=== PATIENT | male | born 1945 | race Caucasian/White ===

== ENCOUNTER → 2018-09-02 10:29 | Outpatient (CLI) | payer MEDICARE, OTHER, SELFPAY ==
[2018-08-16 13:07] VITALS: BMI 30.8
--- NOTE | 2018-09-02 10:33 | STEWCON_ITS ---
Reason For Study: CAD Stress Results Protocol: Eliazar Protocol Maximum Predicted HR: 149 bpm Target HR: 127 bpm % Maximum Predicted HR: 84 % Heart Stage Duration Rate BP Comment (mm:ss) (bpm) Baseline 61 122/80No Chest Pain; Diluted Definity 3 ML Given Eliazar Protocol Stage I 3:00 106 140/82No Chest Pain; Mild Dyspnea; Leg Pain Eliazar Protocol Stage No Chest Pain; Mild to Moderate Dyspnea; Leg Pain; II 2:34 125 160/74Fatigue Recovery 78 118/80No Chest Pain Stress Duration: 5:34 mm:ss Maximum Stress HR: 125 bpm METS: 7 Baseline Echocardiogram Findings The estimated ejection fraction is 65 %. Stress Echo Wall motion Data Resting WM Intermediate WM Stress WM Wall Motion Stress Mid-Anterior : Hypokinetic. Mid-Posterior: Mildly hypokinetic. EKG Data Normal intervals are noted. The baseline ECG displays normal sinus rhythm. The patient exercised according to the regular Eliazar protocol for a total duration of 5:34. The maximum heart rate attained was 126 beats per minute. This was 84% of maximum predicted heart rate. The patient exercised into stage 2 of the Eliazar protocol. The stress ECG displays diffuse abnormal ST segments. No clinical angina was noted. Interpretation Summary The estimated ejection fraction is 65 %. Abnormal, adequate, treadmill echocardiogram. Positive for ischemia by EKG and echocardiographic criteria. No anginal symptoms noted. Rare PVC noted. Appropriate blood pressure response to exercise. Average exercise capacity for age. Patient appeared to develop 1 mm of inferior and lateral ST segment depression at peak exercise which returned to baseline by 1 minute 50 seconds into recovery. Patient also appeared to develop mid anterior and mid inferior hypokinesis as evidenced in 2 views. Echo interpretation somewhat problematic due to poor echo windows requiring Definity agent. Final LVEF of 65%. Test terminated due to fatigue and dyspnea on exertion. The study was technically difficult. Contrast injection was performed. Ordering Physician: Adam Kim Referring Physician: Mele Salas Performed By: Shaila Deleon, TREVIN, RVT
[2018-09-02 12:37] LABS: AST(SGOT) 16 U/L (15-37); Alanine Aminotransfer ALT/SGPT 26 U/L (16-61); Albumin, Serum 4.1 g/dL (3.2-5.0); Alkaline Phosphatase 54 U/L (45-117); Bilirubin, Direct 0.11 mg/dL (0.00-0.30); Cholesterol 160 mg/dL (200); Globulin 3.4 g/dL (2.2-4.2); High Density Lipoprotein 37 mg/dL; Protein, Total 7.5 g/dL (6.4-8.2); Triglycerides 178 mg/dL; Very Low Density Lipoprotein 36 mg/dL (5-40)
== END ==
PROVIDERS: Family Provider Internal Medicine; PCP Internal Medicine; Referring Provider Internal Medicine Cardiovascular Disease; Visit Provider Internal Medicine Cardiovascular Disease
DX: I25.10 Atherosclerotic heart disease of native coronary artery without angina pectoris (principal); E78.5 Hyperlipidemia, unspecified; I10 Essential (primary) hypertension; Z95.5 Presence of coronary angioplasty implant and graft
CPT/HCPCS: 36415; 80061; 80076; 93017; 93350; Q9957; A4216; C8928

== ENCOUNTER 2018-09-10 07:04 | Day surgery (SDC) | payer MEDICARE, OTHER, SELFPAY ==
[2018-08-16 13:07] VITALS: BMI 30.8
[2018-09-03 09:14] LABS: Hematocrit 42.5 % (40-54); Hemoglobin 14.3 g/dl (13.0-16.5); Mean Corp Hgb Conc 33.6 g/gl (32-36); Mean Corpuscular Hgb 28.9 pg (27.0-32.0); Mean Platelet Vol. 8.9 fl (6.2-12.0); Platelet Count 181 K/mm3 (150-450); RBC Distribution Width CV 12.9 % (11.6-14.6); RBC Distribution Width SD 40.5 fl (35.1-43.9); Red Blood Count 4.94 M/mm3 (4.6-6.2); White Blood Count 4.6 K/mm3 (4.4-11.0)
--- NOTE | 2018-09-03 09:15 | RAD_ITS ---
STUDY: X-RAY CHEST REASON FOR EXAM: Male, 72 years old. Shortness of breath with abnormal stress test. Precatheterization screening. TECHNIQUE: PA and lateral views of the chest. COMPARISON: November 17, 2016. FINDINGS: Left-sided intracardiac pacemaker is present. The lungs are clear and expanded. There is no demonstrated pleural abnormality. Normal size heart. Normal mediastinum and jerod. Normal visualized pulmonary arteries. There is atherosclerotic calcification of the aortic arch with tortuosity. There are diffuse degenerative changes of the visualized thoracic spine. Normal visualized ribs, clavicles, and shoulders. There is no demonstrated abnormality of the visualized soft tissue structures of the upper abdomen. RAD/Chest PA and Lateral IMPRESSION: No radiographic evidence of acute cardiopulmonary disease. Electronically Signed: Brooke Burton MD at 8:57 EDT , Service support ,
[2018-09-03 09:18] LABS: Scan Indicated on CBC? Y/N NO
[2018-09-03 09:20] LABS: Prothrombin Time (Protime)PT. 13.3 SECONDS (11.7-14.9)
[2018-09-03 09:21] LABS: Partial Thromboplast Time 27.1 Seconds (24.1-36.2)
[2018-09-03 09:34] VITALS: BMI 30.8
[2018-09-03 09:47] LABS: Anion Gap 7 (5-15); BUN 15 mg/dL (7-18); BUN/Creat Ratio 13.8 RATIO (10-20); Calcium,Total 8.7 mg/dL (8.5-10.1); Chloride 105 mmol/L (98-107); Creatinine, Serum 1.09 mg/dL (0.70-1.30); EST Glomerular Filtration Rate 71 mL/min (>60); Est Glom Filt Rate - Afr Amer 86 mL/min (>60); Glucose 115 mg/dL (74-106); Potassium 4.4 mmol/L (3.5-5.1); Sodium Level 140 mmol/L (136-145)
[2018-09-09 07:29] VITALS: BMI 30.8
--- NOTE | 2018-09-10 09:10 | CL.D_ITS ---
Patient Name: JOYCE JAIME Study Date: 09/10/2018 Performing: Adam Kim MD Ht: 68.89 inches 175 cm : 1945 Wt: 209.44 lbs 95 kg Age: 72 Gender: male BSA: 2.1 PROCEDURE(S) PERFORMED ES86-QCY/COR/LV CLINICAL PROFILE AND INDICATIONS Indications: Stable Known CAD, Other; abnormal stress echo, Myocarditis Heart Failure: None Stress/Imaging Date: 09/02/2018Stress Echocardiogram: Positive Low Risk Angina Classification Anginal Classification w/in 2 Weeks: No symptoms CAD Presentations: No Sxs, no angina. Comorbidities/Risk Factors: Hypertension Dyslipidemia Prior PCI CONCLUSIONS Perserved Left Ventricular systolic function with normal EDP Non obstructive coronary arteries Single vessel CAD of the LCX Widely patet LAD stent; small DIAG#2 with 75% which is too small to PCI. Improved mid RCA stenosis over last cath. RECOMMENDATIONS False positive stress echo most likely due to known occluded LCX with R to L collaterals. RCA stenos is does not appear to warrant FFR again. Management as per referring Enrollment Eligibility Representative Pt is asymptomatic and continues to exercise without difficulty or symptoms. Manual sheath removal. DESCRIPTION OF PROCEDURE The patient arrived to the procedure lab. The risks and benefits of the procedure as well as a full d escription of our services here and current unavailability of surgical backup were fully explained to the patient and/or their significant other prior to the catheterization. The Timeout was completed, verifying the correct patient and procedure. The patient's procedural site was prepped and draped in the usual fashion. Local anesthetic was given subcutaneously to right groin region with Lidocaine 2%. Using a modified Seldinger technique, arterial access was obtained via the right femoral artery, a 4 Fr sheath was inserted Left Coronary Artery selective angiography was performed in multiple views us ing a 4 Fr. JL5 catheter. Right Coronary Artery selective angiography was then performed in multiple views using a 4 Fr. 3DRC catheter. Left Ventriculography was performed in LEONARD projection using a 4 Fr . Pigtail catheter. LV to AO pullback pressures were then recorded.The arterial sheath was pulled and manual compression applied until hemostasis is achieved. CORONARY ANGIOGRAPHY DOMINANCE: Right Dominant LEFT HEART ASSESSMENT Left Ventricular Ejection Fraction: by LV Gram 65 % Normal LV wall motion Normal Left Ventricular systolic function Normal Left Ventricular End Diastolic Pressure LEFT MAIN: Angiographically normal LEFT ANTERIOR DECENDING ARTERY: PROX LAD: Previously placed stent is patent DISTAL LAD: Mild luminal irregularities less than 30% DIAGONAL 2: Proximal - 75% Stenosis, very small artery. CIRCUMFLEX ARTERY: PROX CIRC: Mild luminal irregularities less than 30% MID CIRC: is occluded RIGHT CORONARY ARTERY: MID RCA: 30 % Stenosis COLLATERAL FLOW: Collateral flow from Right to Left COMPLICATIONS No Complications PROCEDURE MEDICATIONS Oxygen: 2 L/min via nasal cannula Nitro 200 mcg IC 09/10/2018 08:50:09 SUMMARY OF HEMODYNAMIC DATA Time AIR REST ECG 07:28:39 AO 165/77 (110) SA 08:45:15 LV 141/-14, 15 08:52:59 LV 143/-15, 15 08:53:06 LVp 147/-17, 18 08:53:12 AOp 143/68 (98) 08:53:17 Signed By Adam Kim MD On 09/10/2018 9:09:55 AM Adam Kim MD
== END 2018-09-10 13:15 | disposition home or self-care (01) ==
PROVIDERS: Family Provider Internal Medicine; PCP Internal Medicine; Referring Provider Internal Medicine Cardiovascular Disease; Visit Provider Internal Medicine Cardiovascular Disease
DX: I25.10 Atherosclerotic heart disease of native coronary artery without angina pectoris (principal); E78.5 Hyperlipidemia, unspecified; I10 Essential (primary) hypertension; R06.02 Shortness of breath; E11.9 Type 2 diabetes mellitus without complications; N40.0 Benign prostatic hyperplasia without lower urinary tract symptoms; M19.90 Unspecified osteoarthritis, unspecified site; Z79.899 Other long term (current) drug therapy; Z95.5 Presence of coronary angioplasty implant and graft
CPT/HCPCS: 36415; 71046; 80048; 85027; 85610; 85730; 93458; J7040; Q9967; C1769; C1894

== ENCOUNTER → 2019-10-21 07:41 | Outpatient (CLI) | payer MEDICARE, SELFPAY ==
[2019-03-31 13:23] VITALS: BMI 30.2
--- NOTE | 2019-10-21 07:47 | CT_ITS ---
STUDY: CT ABDOMEN AND PELVIS WITH AND WITHOUT CONTRAST REASON FOR EXAM: Male, 74 years old. GROSS HEMATURIA 3 WEEKS AGO RADIATION DOSAGE (If Supplied By Facility): CTDIvol = ( 24.33 ) mGy, DLP = ( 3425.25 ) mGycm TECHNIQUE: Transaxial images were obtained from the dome of the diaphragm to the symphysis pubis without oral contrast. IV 100mL Isovue-300 was administered. Sagittal and coronal images were reconstructed. Individualized dose optimization techniques were used for this CT. COMPARISON: None. FINDINGS: The visualized lung bases are unremarkable. The visualized portions of the heart are within normal limits. Normal liver. Normal gallbladder and extrahepatic biliary system. Normal spleen. Normal pancreas. Normal bilateral adrenal glands. Normal right kidney. Normal left kidney. Normal visualized stomach. Normal small intestine. Normal colon. The appendix is visualized and appears normal. Normal abdominal aorta. Normal inferior vena cava. Normal retroperitoneum. Multiple stones are seen in the urinary bladder the largest measures 1.8 cm. There is enlargement of the prostate gland. There is a left-sided inguinal hernia containing adipose tissue. There are diffuse degenerative changes of the visualized lumbar spine. CT/CT Abd/Pelvis W/WO Contrast IMPRESSION: Multiple urinary bladder stones. Prostate hypertrophy. Electronically Signed: Maral Ventura, at 15:19 EDT Tel , Service support ,
[2019-10-21 08:05] LABS: CREATININE FINGERSTICK 1.3 mg/dL (0.70-1.30)
--- OUTSIDE RECORDS SUMMARY | 2020-03-13 15:51 | XMS RPT_ITS | CCD ---
:1945 External Reference #:[id number] Author Organization [facility] Care Team Providers Name Role Phone TIARRA Talbot, M Unavailable Unavailable TIARRA Talbot, M Unavailable Unavailable Scott Unavailable Unavailable Scott Unavailable Unavailable MD Kim J Unavailable DeFinis, Y Unavailable Unavailable TIARRA Talbot, M Unavailable Unavailable TIARRA Talbot, M Unavailable Unavailable TIARRA Talbot, M Unavailable Unavailable TIARRA Talbot, M Unavailable Unavailable TIARRA Talbot, M Unavailable Unavailable TIARRA Talbot, M Unavailable Unavailable TIARRA Talbot, M Unavailable Unavailable TIARRA Talbot, M Unavailable Unavailable TIARRA Talbot, M Unavailable Unavailable Jenny Kessler Primary Care Provider Medications Medication Name Sig Date Prescriber Location alfuzosin ALFUZOSIN HCL ER 10 MG 10-10-2013 - [facility] [id number] One tablet by 08-04-2014 (446 37) mouth daily ALFUZOSIN HCL [id number] Sisi Dickson RN aspirin ASPIRIN 81 MG TABS One 10-07-2013 [facility] tablet by mouth daily (69892 ) ASPIRIN [id number] Adam Kim MD ASPIRIN 81 MG TABS One tablet 10-07-2013 [facility] by mouth daily (96138 ) ASPIRIN [id number] Adam Kim MD aspirin, enteric coated 81 mg 10-29-2012 Mele Kessler [facility] EC tablet Indications: (53001) Dizziness , Diabetes mellitus (HCC) Take 1 tablet by mouth once daily. 0 10/29/2012 Active Comment: Take 1 tablet by mouth once daily. Blood Glucose Blood Glucose Control, 09-07-2014 Mele [facility] Control, Normal Normal soln ([id number]) soln Indications: Type II or unspecified type diabetes mellitus without mention of complication, not stated as uncontrolled Test controls as needed. 1 Each 09/07/2014 Active Blood Glucose Control, Normal 09-07-2014 [facility] ([id number]) soln Indications: Type II or unspecified type diabetes mellitus without mention of complication, not stated as uncontrolled Test controls as needed. 1 Each 09/07/2014 Active Blood Glucose Control, Normal 09-07-2014 [facility] ([id number]) soln Indications: Type II or unspecified type diabetes mellitus without mention of complication, not stated as uncontrolled Test controls as needed. 1 Each 09/07/2014 Active Blood Glucose Control, Normal 09-07-2014 [facility] ([id number]) soln Indications: Type II or unspecified type diabetes mellitus without mention of complication, not stated as uncontrolled Test controls as needed. 1 Each 09/07/2014 Active Blood Glucose Control, Normal 09-07-2014 [facility] ([id number]) soln Indications: Type II or unspecified type diabetes mellitus without mention of complication, not stated as uncontrolled Test controls as needed. 1 Each 09/07/2014 Active Comment: Test controls as needed. Blood-Glucose Meter Blood-Glucose Meter 01-18-2020 [facility] ([facility]) [facility] monitoring kit monitoring kit Glucose Older (44 195) Meter of Choice - Kit. 1 Each 0 01/18/2020 Active Blood-Glucose Meter monitoring 01-18-2020 [facility] ([facility]) Older [facility] (99667) kit Glucose Meter of Choice - Kit. 1 Each 0 01/18/2020 Active Comment: Glucose Meter of Choice - Ki t. clopidogrel clopidogrel 75 mg tablet 10-07-2013 [facility] Indications: CAD S/P (44178) percutaneous coronary angioplasty Take 1 tablet by mouth once daily. 0 12/08/2013 Active Comment: Take 1 tablet by mouth once daily. Docusate docusate sodium (COLACE) 11-06-2018 [facility] 100 mg capsule (20362) Indications: Constipation, unspecified constipation type Take 1 capsule by mouth twice daily. For constipation. 0 11/06/2018 Active Comment: Take 1 capsule by mouth twic e daily. For constipation. finasteride finasteride (PROSCAR) 5 mg 07-01-2019 Mele aleman [facility] tablet Indications: BPH Grou [facility] (04460) with obstruction/lower urinary tract symptoms Take 1 tablet by mouth once daily. 90 tablet 3 07/01/2019 Active PROSCAR 5 MG TABS One tablet by mouth daily 10-10-2013 [facility] (09266) FINASTERIDE [id number] Sisi Dickson RN Comment: Take 1 tablet by mouth once daily. glyBURIDE glyBURIDE (DIABETA) 2.5 mg 04-14-2019 - [facility] ([employer]) [facility] tablet Take 1 tablet by 02-01-2020 [facility] (80162) mouth once daily. 90 tablet 1 04/14/2019 02/01/2020 Discontinued (Non-Compliance) GLYBURIDE 5 MG TABS Two tablets 10-10-2013 - 10-31-2014 [facility] (81548) by mouth daily GLYBURIDE [id number] Sisi Dickson RN Comment: Take 1 tablet by mouth once daily. hydroCHLOROthiazide HYDROCHLOROTHIAZIDE 12.5 09-13-2014 - [facility] TABS One tablet by 10-17-2014 [facility] mouth daily (4469 1) HYDROCHLOROTHIAZIDE [id number] Adam Kim MD hydroCHLOROthiazide / HYZAAR 50-12.5 MG TABS 09-13-2014 Teresita Gallo losartan One tablet by mouth [facility] daily (00586) LOSARTAN POTASSIUM-HCTZ [id number] Adam Kim MD HYZAAR 50-12.5 MG TABS One 09-13-2014 Teresita Plasencia RN [facility] tablet by mouth daily (21017) LOSARTAN POTASSIUM-HCTZ [id number] Adam Kim MD HYZAAR 50-12.5 MG TABS One 09-13-2014 Teresita Plasencia RN [facility] tablet by mouth daily (59822) LOSARTAN POTASSIUM-HCTZ [id number] Adam Kim MD HYZAAR 50-12.5 MG TABS One 09-13-2014 Teresita Plasencia RN [facility] tablet by mouth daily (00461) LOSARTAN POTASSIUM-HCTZ [id number] Adam Kim MD HYZAAR 50-12.5 MG TABS One 09-13-2014 Teresita Plasencia RN [facility] tablet by mouth daily (91748) LOSARTAN POTASSIUM-HCTZ [id number] Adam Kim MD HYZAAR 50-12.5 MG TABS One 09-13-2014 Teresita Plasencia RN [facility] tablet by mouth daily (96586) LOSARTAN POTASSIUM-HCTZ [id number] Adam Kim MD HYZAAR 50-12.5 MG TABS One 09-13-2014 Teresita Plasencia RN [facility] tablet by mouth daily (42440) LOSARTAN POTASSIUM-HCTZ [id number] Adam Kim MD HYZAAR 50-12.5 MG TABS One 09-13-2014 Teresita Plasencia RN [facility] tablet by mouth daily (08241) LOSARTAN POTASSIUM-HCTZ [id number] Adam Kim MD HYZAAR 50-12.5 MG TABS One 09-13-2014 Teresita Plasencia RN [facility] tablet by mouth daily (29235) LOSARTAN POTASSIUM-HCTZ [id number] Adam Kim MD Losartan LOSARTAN POTASSIUM 25 MG 09-13-2014 Teresita Plasencia RN [facility] TABS 1/2 tablet by mouth (44 544) daily LOSARTAN POTASSIUM [id number] Maty Patterson PA-C LOSARTAN POTASSIUM 25 MG 09-13-2014 [facility] TABS One tablet by mouth RN (00162) daily LOSARTAN POTASSIUM [id number] Adam Kim MD LOSARTAN POTASSIUM 25 MG 10-07-2013 - 10-13-2013 Teresitalul alonzo, [facility] TABS One tablet by mouth RN (83935) daily LOSARTAN POTASSIUM [id number] Adam Kim MD Magnesium magnesium hydroxide 11-06-2018 [facility] Hydroxide (MILK OF MAGNESIA) 400 K[facility] (4419 5) mg/5 mL suspension Indications: Constipation, unspecified constipation type Take 15 mL by mouth once daily as needed for Constipation. 0 11/06/2018 Active Comment: Take 15 mL by mouth once ajay ly as needed for Constipation. metFORMIN metFORMIN (GLUCOPHAGE) 500 08-29-2019 [facility] ([facility]) [facility] mg tablet Take 2 tablets by (86297) mouth twice daily with meals. 360 tablet 1 08/29/2019 Active METFORMIN HCL 500 MG TABS One tablet by 10-10-2013 [facility] (42542) mouth twice daily METFORMIN HCL [id number] Anila Rivero RN METFORMIN HCL 500 MG TABS One tablet by 10-10-2013 [facility] (47507) mouth daily METFORMIN HCL [id number] Sisi Dickson RN Comment: Take 2 tablets by mouth twic e daily with meals. metoprolol METOPROLOL TARTRATE 10-07-2013 - [facility] 25 MG TABS One tablet 08-04-2014 RN Group (75746) by mouth twice daily METOPROLOL TARTRATE [id number] Adam Kim MD omeprazole PRILOSEC 20 MG CPDR 09-12-2014 - [facility] One tablet by mouth 01-29-2016 Group (4 4691) daily OMEPRAZOLE [id number] Anila Rivero RN PRILOSEC 20 MG CPDR One tablet 09-12-2014 - 01-29-2016 [facility] (58419) by mouth daily OMEPRAZOLE [id number] Teresita Plasencia RN simvastatin simvastatin (ZOCOR) 40 mg 02-15-2019 [facility] ([facility]) Older [facility] tablet Indications: Mixed (4 4691) hyperlipidemia Take 1 tablet by mouth daily at bedtime. For cholesterols. 30 tablet 11 02/15/2019 Active ZOCOR 40 MG TABS One tablet 10-07-2013 Teresita Plasencia RN [facility] by mouth daily at bedtime (01688 ) SIMVASTATIN [id number] Adam Kim MD Comment: Take 1 tablet by mouth daily at bedtime. For cholesterols. tamsulosin tamsulosin ER (FLOMAX) 10-03-2019 [facility] ([employer] [facility]) [facility] 0.4 mg Take 1 capsule by (44 691) mouth once daily. 30 capsule 5 10/03/2019 Active FLOMAX 0.4 MG CAPS One tablet by 01-24-2015 [facility] (44860) mouth daily TAMSULOSIN HCL [id number] Teresita Plasencia RN FLOMAX 0.4 MG CAPS One tablet by 10-10-2014 - 10-17-2014 [facility] (67619) mouth daily TAMSULOSIN HCL [id number] Teresita Plasencia RN Comment: Take 1 capsule by mouth once daily. Problems Active Problems Category Problem Name Status Date Location Conduction disorders Atrioventricular block Active 12-28-2015 - [facility] (09174) Diabetes mellitus Type 2 diabetes mellitus Active 06-07-2014 - [facility] without complication without complication (36713) Disorders of lipid Hyperlipidemia Active 03-22-2009 - [facility] metabolism Group (41682) Essential hypertension Hypertensive disorder Active - [facility] (11329) Hyperplasia of prostate Benign prostatic Active 02-16-2009 - [facility] hypertrophy with outflow (44 195) obstruction Other connective tissue History of total hip Active [address] [place] [address] disease arthroplasty (19706) Other nutritional; Obese class I Active 06-21-2018 - [facility] endocrine; and (19377) metabolic disorders Other nutritional; Body mass index (BMI) Active 08-01-2016 - [facility] endocrine; and 31.0-31.9, adult Group (44 691) metabolic disorders Spondylosis; Cervical spondylosis Active 06-26-2018 - [facility] intervertebral disc without myelopathy (4 6125) disorders; other back problems Unclassified Long-term drug therapy Active 01-26-2016 - [facility] (84751) Unclassified Placement of stent in Active 10-21-2013 - [facility] coronary artery [facility] (99183 ) Unclassified Family history of Active 10-13-2013 - [facility] ischemic heart disease - 01-26-2016 Group (32926) - Past or Other Problems Category Problem Name Status Date Location Coronary atherosclerosis Preinfarction Completed 10-04-2013 - [facility] and other heart disease syndrome - 01-26-2016 Grou p (64155) - Nonspecific chest pain Chest pain, Completed 10-04-2013 - [facility] unspecified - 01-26-2016 Group (47993) - Other aftercare 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 - [facility] (current[facility] Group (94723) therapy Other circulatory disease Orthostatic Completed 10-31-2014 - [facility] hypotension - 07-25-2016 Group (79999) - Other connective tissue Cramp in lower limb Completed 02-03-2019 - [facility] disease (32755) Other gastrointestinal Constipation Completed 11-06-2018 - [facility] disorders (30900) Other lower respiratory Dyspnea Completed 10-04-[address] [facility] (55236) Other screening for Raised prostate Completed 03-23-2009 - [facility] suspected conditions (not specific antigen (64713) mental disorders or infectious disease) Syncope Syncope and collapse Completed 10-13-2013 - [facility] (30993) Unclassified Percutaneous Completed 10-21-2013 - [facility] transluminal coronary Group (37324) angioplasty Results Result Name Value Range Unit Interpretation Flag Date Location [facility] on 2020-03-08 [facility] Telephone (INTMWS) Normal 03-08-2020 [place] JOYCE Aragon ([id number]) 1945 [facility] Time Provider Department ([id number]) 03/08/20 MELE KESSLER INTMellissaWS During your visit today, we recorded the following informati on about you: Nicole Martinez 03/08/2020 12:22 PM Signed Joyce Puente is calling Mele Kessler MD today with concern regarding Patient Update Patient has been identified by name and birthdate. Duration of symptoms: N/A Person calling: self Call patient at: on cell [phone] (home) [phone] (cell) Patient is calling to let the doctor know he had been doing ok for a while on current BP medication, but now it doesn't seem to be as effe ctive. Please advise patient of next step Was an appointment scheduled: No Closing statement: Results or non-symptom based questions: Thank you for calling [facility], your call will be returned within the next business day. Nicole Paulino Cma 03/09/2020 8:38 AM Signed Please advise. Nicole Carson APRN.CNP 03/09/2020 1:21 PM Signed Has he been checking BP's at home? If so, what are his most recent readings. CONSTANCE Montalvo LPN 03/09/2020 2:31 PM Signed Called pt and he is concerned of blood sugars not blood pres sure. He reports his blood sugars are running between 120-200. He checks them daily. He is taking the metformin 500 mg two tablets tw ice daily. He will be getting labs completed for appt later this month. Pt reports his isnrance told him to stop the glyburide. With the glyburide his blood sugars were running in the 60s. In review the glyburide needed prior auth. pcp says to get l abs first.. Gavi Carson APRN.CNP 03/09/2020 2:37 PM Signed Fasting blood sugar goal for him would be around 140 a nd 2 hours after meals around 180. A little bit higher than that occasi onally is okay, this is safer then being low. Would recommend getting labs done, can wait until upcoming appointment to make any necessary changes CONSTANCE Montalvo LPN 03/09/2020 3:38 PM Signed Patient notified. He will get labs done soon. Allergies As of Date: 03/08/2020 (No Known Allergies) Date Reviewed: 01/11/2019 Reviewed by: Rhonda) Jeff - Fully Assessed Reason for Visit: Patient Update [1234] Prescriptions as of 03/08/2020 Sig: ONETOUCH ULTRA TEST STRIPS Test blood sugar(s) 2 times * BLOOD-GLUCOSE METER KIT Glucose Meter of Choice - Kit. LANCETS 30 GAUGE Test blood sugar(s) 2 times * TAMSULOSIN 0.4 MG CAPSULE Take 1 capsule by mouth once * METFORMIN 500 MG TABLET Take 2 tablets by mouth twice* FINASTERIDE 5 MG TABLET Take 1 tablet by mouth once d* SIMVASTATIN 40 MG TABLET Take 1 tablet by mouth daily * MAGNESIUM HYDROXIDE 400 MG/5 * Take 15 mL by mouth once malka * DOCUSATE SODIUM 100 MG CAPSULE Take 1 capsule by mouth twice * BLOOD GLUCOSE CONTROL, NORMAL* Test controls as needed. CLOPIDOGREL 75 MG TABLET Take 1 tablet by mouth once d* ASPIRIN 81 MG TABLET,DELAYED * Take 1 tablet by mouth once d * Problem List As Of Date 03/08/2020 Noted Resolved Umbilical hernia without mention of obstruction*08/01/2006 0 01/18/2014 BPH with obstruction/lower urinary tract sympto*02/16/2009 Diabetes Mellitus [E11.9] 03/22/2009 06/07/2014 Mixed Hyperlipidemia [E78.2] 03/22/2009 Elevated PSA [R97.20] 03/23/2009 Gross hematuria [R31.0] 12/28/2009 04/01/2013 Other calculus in bladder [N21.0] 12/28/2009 04/01/2013 Screening for other and unspecified genitourina*04/21/2011 1 06/01/2012 Other specified disorders of bladder [N32.89] 07/04/201106/2012 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*06/26/2018 Constipation [K59.00] 11/06/2018 Weakness of both lower extremities [R29.898] 02/03/201906/03 Leg cramps [R25.2] 02/03/2019 Encounter Status:Closed by KIMBERLEE LACEY LPN on 03/09/20 obsolete on 2019-12 OBSOLETE Refill (INTMWS) Normal 01-18-2020 Gibran miller JOYCE Aragon ([id number]) 1945 [facility] Date Time Provider Department ([id number]) 01/18/20 MELE KESSLER INTMWS During your visit today, we recorded the following informati on about you: Jo Reyes 01/18/2020 11:29 AM Signed Patient has been identified by name and date of : Yes Pending Prescriptions Disp Refills ONETOUCH ULTRA TEST STRIPS 200 Strip 3 Sig: Test blood sugar(s) 2 times daily. Dx: E11.9 . Insulin: No JIMMY: No BLOOD-GLUCOSE METER KIT 1 Each 0 Sig: Glucose Meter of Choice - Kit. JIMMY: No LANCETS 30 GAUGE 200 Each 3 Sig: Test blood sugar(s) 2 times daily. Dx: E11.9 . Insulin: No JIMMY: No PATIENT STATES HE JUST GOT BACK FROM VACATION AND HE LEFT AL L OF THE ABOVE SUPPLIES AT A HOTEL ALONG THE WAY NO ONE HAS CALLED STATIN G THEY FOUND THEM HE IS IN NEED OF THESE TO BE FILLED AT [facility] EASE CALL HIM WITH ANY QUESTIONS RX INSTRUCTIONS: Patient aware RX will be sent to pharmacy. No need to notify patient. Jo Mike LPN 01/18/2020 11:34 AM Signed Patient has been identified by name and date of : Yes Patient phones for refill(s): Pending Prescriptions Disp Refills ONETOUCH ULTRA TEST STRIPS 200 Strip 3 Sig: Test blood sugar(s) 2 times daily. Dx: E11.9 . Insulin: No JIMMY: No BLOOD-GLUCOSE METER KIT 1 Each 0 Sig: Glucose Meter of Choice - Kit. JIMMY: No LANCETS 30 GAUGE 200 Each 3 Sig: Test blood sugar(s) 2 times daily. Dx: E11.9 . Insulin: No JIMMY: No Date of last office visit in primary care: 07/01/2019 Medicare Wellness: 02/20/2020 Last 2 Encounter Wt Readings: Date: Wt: 07/01/2019 95.3 kg (210 lb) 01/11/2019 93.4 kg (206 lb) Previous labs/tests for medication: Diabetes: Hemoglobin A1C (%) Date Value 06/28/2019 6.5 06/18/2018 5.9 Hemoglobin A1C (POCT) (%) Date Value 10/19/2018 6.0 Please advise. Thank you. Velvet Mike LPN Allergies As of Date: 01/18/2020 (No Known Allergies) Date Reviewed: 01/11/2019 Reviewed by: Rhonda) Jeff - Fully Assessed Reason for Visit: Refill Request [94] Visit Diagnosis:Controlled type 2 diabetes mellitus without complication, without long-term current use of insulin (HCC) [E11.9] Order(s):blood sugar diagnostic (ONETOUCH ULTRA TEST) test s tripTest blood sugar(s) 2 times daily. Dx: E11.9 . Insulin: NoDisp: 200 Str ipRfl: 0 Blood-Glucose Meter monitoring kitGlucose Meter of Choice - Kit.Disp: 1 EachRfl: 0 lancets (ONETOUCH DELICA LANCETS) 30 gaugeTest blood sugar(s ) 2 times daily. Dx: E11.9 . Insulin: NoDisp: 200 EachRfl: 0 Prescriptions as of 01/18/2020 Sig: ONETOUCH ULTRA TEST STRIPS Test blood sugar(s) 2 times * BLOOD-GLUCOSE METER KIT Glucose Meter of Choice - Kit. LANCETS 30 GAUGE Test blood sugar(s) 2 times * TAMSULOSIN 0.4 MG CAPSULE Take 1 capsule by mouth once * METFORMIN 500 MG TABLET Take 2 tablets by mouth twice* FINASTERIDE 5 MG TABLET Take 1 tablet by mouth once d* GLYBURIDE 2.5 MG TABLET Take 1 tablet by mouth once d* SIMVASTATIN 40 MG TABLET Take 1 tablet by mouth daily * MAGNESIUM HYDROXIDE 400 MG/5 * Take 15 mL by mouth once malka * DOCUSATE SODIUM 100 MG CAPSULE Take 1 capsule by mouth twice * BLOOD GLUCOSE CONTROL, NORMAL* Test controls as needed. CLOPIDOGREL 75 MG TABLET Take 1 tablet by mouth once d* ASPIRIN 81 MG TABLET,DELAYED * Take 1 tablet by mouth once d * Problem List As Of Date 01/18/2020 Noted Resolved Umbilical hernia without mention of obstruction*08/01/2006 0 01/18/2014 BPH with obstruction/lower urinary tract sympto*02/16/2009 Diabetes Mellitus [E11.9] 03/22/2009 06/07/2014 Mixed Hyperlipidemia [E78.2] 03/22/2009 Elevated PSA [R97.20] 03/23/2009 Gross hematuria [R31.0] 12/28/2009 04/01/2013 Other calculus in bladder [N21.0] 12/28/2009 04/01/2013 Screening for other and unspecified genitourina*04/21/2011 1 06/01/2012 Other specified disorders of bladder [N32.89] 07/04/201106/2012 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*06/26/2018 Constipation [K59.00] 11/06/2018 Weakness of both lower extremities [R29.898] 02/03/2019/06/2019 Leg cramps [R25.2] 02/03/2019 Prescriptions ordered this encounter Disp Refills Start End ONETOUCH ULTRA TEST STRIPS 200 * 0 01/18/2020 Sig: Test blood sugar(s) 2 times daily. Dx: E11.9 . Insulin: No BLOOD-GLUCOSE METER KIT 1 Ea* 0 01/18/2020 Sig: Glucose Meter of Choice - Kit. LANCETS 30 GAUGE 200 * 0 01/18/2020 Sig: Test blood sugar(s) 2 times daily. Dx: E11.9 . Insulin: No Medications Discontinued During This Encounter Prescriptions - blood sugar diagnostic (ONETOUCH ULTRA TEST) test strip (D iscontinued) Test blood sugar(s) 2 times daily. Dx: E11.9 . Insulin: No - Blood-Glucose Meter monitoring kit (Discontinued) Glucose Meter of Choice - Kit. - lancets (ONETOUCH DELICA LANCETS) 30 gauge misc (Discontin ued) Test blood sugar(s) 2 times daily. Dx: E11.9 . Insulin: No Encounter Status:Closed by GAVI CARSON CNP on 01/18/20 cnpn on 2019-12-24 CNPN Telephone (INTMWS) Normal 12-24-2019 [place] [facility] JOYCE PUENTE ([id number]) 1945 [facility] Date Time Provider Department ([id number]) 12/24/19 MELE KESSLER INTMWS During your visit today, we recorded the following informati on about you: Tnaiya White LPN 12/24/2019 8:33 AM Signed rec'd results from [facility] for COVID testing completed 12/22/19. Ordered by Dr. Jaylon Capone. They are not detected Allergies As of Date: 12/24/2019 (No Known Allergies) Date Reviewed: 01/11/2019 Reviewed by: Mary Aguilar - Fully Assessed Reason for Visit: Results [95] Order(s):2019 CORONAVIRUS [SQCOVID] Order #: [id number] Prescriptions as of 12/24/2019 Sig: TAMSULOSIN 0.4 MG CAPSULE Take 1 capsule by mouth once * METFORMIN 500 MG TABLET Take 2 tablets by mouth twice* FINASTERIDE 5 MG TABLET Take 1 tablet by mouth once d* GLYBURIDE 2.5 MG TABLET Take 1 tablet by mouth once d* SIMVASTATIN 40 MG TABLET Take 1 tablet by mouth daily * MAGNESIUM HYDROXIDE 400 MG/5 * Take 15 mL by mouth once malka * DOCUSATE SODIUM 100 MG CAPSULE Take 1 capsule by mouth twice * BLOOD SUGAR DIAGNOSTIC STRIPS Test blood sugar(s) 2 times * LANCETS 30 GAUGE Test blood sugar(s) 2 times * BLOOD-GLUCOSE METER KIT Glucose Meter of Choice - Kit. BLOOD GLUCOSE CONTROL, NORMAL* Test controls as needed. CLOPIDOGREL 75 MG TABLET Take 1 tablet by mouth once d* ASPIRIN 81 MG TABLET,DELAYED * Take 1 tablet by mouth once d * Problem List As Of Date 12/24/2019 Noted Resolved Umbilical hernia without mention of obstruction*08/01/2006 0 01/18/2014 BPH with obstruction/lower urinary tract sympto*02/16/2009 Diabetes Mellitus [E11.9] 03/22/2009 06/07/2014 Mixed Hyperlipidemia [E78.2] 03/22/2009 Elevated PSA [R97.20] 03/23/2009 Gross hematuria [R31.0] 12/28/2009 04/01/2013 Other calculus in bladder [N21.0] 12/28/2009 04/01/2013 Screening for other and unspecified genitourina*04/21/2011 1 06/01/2012 Other specified disorders of bladder [N32.89] 07/04/201106/2012 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*06/26/2018 Constipation [K59.00] 11/06/2018 Weakness of both lower extremities [R29.898] 02/03/201906/03 Leg cramps [R25.2] 02/03/2019 Encounter Status:Closed by TANIYA WHITE LPN on 12/28/19 obsolete on 2019-11 OBSOLETE Refill (INTMWS) Normal 11-30-2019 Gbiran veland JOYCE Aragon ([id number]) 1945 [facility] Time Provider Department ([id number]) 11/30/19 MELE KESSLER INTMWS During your visit today, we recorded the following informati on about you: Kaylen Reyes 11/30/2019 9:37 AM Signed Patient has been identified by name and date of : Yes Pending Prescriptions Disp Refills CLOPIDOGREL 75 MG TABLET Sig: Take 1 tablet by mouth once daily. JIMMY: No RX INSTRUCTIONS: Patient aware RX will be sent to pharmacy. No need to notify patient. 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 Velvet Mike LPN Allergies As of Date: 11/30/2019 (No Known Allergies) Date Reviewed: 01/11/2019 Reviewed by: Mary Aguilar - Fully Assessed Reason for Visit: Refill Request [94] Visit Diagnosis:CAD S/P percutaneous coronary angioplasty [I 25.10, Z98.61] Prescriptions as of 11/30/2019 Sig: TAMSULOSIN 0.4 MG CAPSULE Take 1 capsule by mouth once * METFORMIN 500 MG TABLET Take 2 tablets by mouth twice* FINASTERIDE 5 MG TABLET Take 1 tablet by mouth once d* GLYBURIDE 2.5 MG TABLET Take 1 tablet by mouth once d* SIMVASTATIN 40 MG TABLET Take 1 tablet by mouth daily * MAGNESIUM HYDROXIDE 400 MG/5 * Take 15 mL by mouth once malka * DOCUSATE SODIUM 100 MG CAPSULE Take 1 capsule by mouth twice * BLOOD SUGAR DIAGNOSTIC STRIPS Test blood sugar(s) 2 times * LANCETS 30 GAUGE Test blood sugar(s) 2 times * BLOOD-GLUCOSE METER KIT Glucose Meter of Choice - Kit. BLOOD GLUCOSE CONTROL, NORMAL* Test controls as needed. CLOPIDOGREL 75 MG TABLET Take 1 tablet by mouth once d* ASPIRIN 81 MG TABLET,DELAYED * Take 1 tablet by mouth once d * Problem List As Of Date 11/30/2019 Noted Resolved Umbilical hernia without mention of obstruction*08/01/2006 0 01/18/2014 BPH with obstruction/lower urinary tract sympto*02/16/2009 Diabetes Mellitus [E11.9] 03/22/2009 06/07/2014 Mixed Hyperlipidemia [E78.2] 03/22/2009 Elevated PSA [R97.20] 03/23/2009 Gross hematuria [R31.0] 12/28/2009 04/01/2013 Other calculus in bladder [N21.0] 12/28/2009 04/01/2013 Screening for other and unspecified genitourina*04/21/2011 1 06/01/2012 Other specified disorders of bladder [N32.89] 07/04/201106/2012 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*06/26/2018 Constipation [K59.00] 11/06/2018 Weakness of both lower extremities [R29.898] 02/03/201906/03 Leg cramps [R25.2] 02/03/2019 Encounter Status:Closed by VELVET MIKE LPN on 11/30/19 obsolete on 2019-10 OBSOLETE Refill (INTMWS) Normal 11-21-2019 [facility] ([id number][facility] 1945 [facility] Date Time Provider Department ([id number]) 11/21/19 MELE KESSLER INTMWS During your visit today, we recorded the following informati on about you: Sri Arboleda Pss 11/21/2019 9:03 AM Signed Patient has been identified by name and date of : Yes Pending Prescriptions Disp Refills FINASTERIDE 5 MG TABLET 90 tablet 3 Sig: Take 1 tablet by mouth once daily. JIMMY: No RX INSTRUCTIONS: Patient aware RX will be sent to pharmacy. No need to notify patient. Sri White LPN 11/21/2019 9:27 AM Signed In review this was sent to the pharmacy 06/21/19. Pharmacy notified and they will get it ready. Allergies As of Date: 11/21/2019 (No Known Allergies) Date Reviewed: 01/11/2019 Reviewed by: Mary Aguilar - Fully Assessed Reason for Visit: Refill Request [94] Visit Diagnosis:BPH with obs truction/lower urinary tract symptoms [N40.1, N13.8] Prescriptions as of 11/21/2019 Sig: TAMSULOSIN 0.4 MG CAPSULE Take 1 capsule by mouth once * METFORMIN 500 MG TABLET Take 2 tablets by mouth twice* FINASTERIDE 5 MG TABLET Take 1 tablet by mouth once d* GLYBURIDE 2.5 MG TABLET Take 1 tablet by mouth once d* SIMVASTATIN 40 MG TABLET Take 1 tablet by mouth daily * MAGNESIUM HYDROXIDE 400 MG/5 * Take 15 mL by mouth once malka * DOCUSATE SODIUM 100 MG CAPSULE Take 1 capsule by mouth twice * BLOOD SUGAR DIAGNOSTIC STRIPS Test blood sugar(s) 2 times * LANCETS 30 GAUGE Test blood sugar(s) 2 times * BLOOD-GLUCOSE METER KIT Glucose Meter of Choice - Kit. BLOOD GLUCOSE CONTROL, NORMAL* Test controls as needed. CLOPIDOGREL 75 MG TABLET Take 1 tablet by mouth once d* ASPIRIN 81 MG TABLET,DELAYED * Take 1 tablet by mouth once d * Problem List As Of Date 11/21/2019 Noted Resolved Umbilical hernia without mention of obstruction*08/01/2006 0 01/18/2014 BPH with obstruction/lower urinary tract sympto*02/16/2009 Diabetes Mellitus [E11.9] 03/22/2009 06/07/2014 Mixed Hyperlipidemia [E78.2] 03/22/2009 Elevated PSA [R97.20] 03/23/2009 Gross hematuria [R31.0] 12/28/2009 04/01/2013 Other calculus in bladder [N21.0] 12/28/2009 04/01/2013 Screening for other and unspecified genitourina*04/21/2011 1 06/01/2012 Other specified disorders of bladder [N32.89] 07/04/201106/2012 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*06/26/2018 Constipation [K59.00] 11/06/2018 Weakness of both lower extremities [R29.898] 02/03/201906/03 Leg cramps [R25.2] 02/03/2019 Encounter Status:Closed by TANIYA WHITE LPN on 11/21/19 obsolete on 2019-09 OBSOLETE Refill (INTMWS) Normal 10-03-2019 Gibran miller JOYCE Aragon ([id number]) 1945 [facility] Time Provider Department ([id number]) 10/03/19 MELE KESSLER INTMWS During your visit today, we recorded the following informati on about you: Vika Reyes 10/03/2019 9:28 AM Signed Patient, identified by name and , requests the following refill: tamsulosin EN 0.4 mg cap Vika Mike LPN 10/03/2019 10:00 AM Signed Patient has been identified by name and date of : Yes Patient phones for refill(s): Pending Prescriptions Disp Refills TAMSULOSIN 0.4 MG CAPSULE 30 capsule 5 Sig: Take 1 capsule by mouth once daily. JIMMY: No Date of last office visit in primary care: 07/01/2019 Yearly scheduled: 12/29/2019 Velvet Mike LPN Allergies As of Date: 10/03/2019 (No Known Allergies) Date Reviewed: 01/11/2019 Reviewed by: Mary Aguilar - Fully Assessed Reason for Visit: Refill Request [94] Order(s):tamsulosin ER (FLOMAX) 0.4 mgTake 1 capsule by mout h once daily.Disp: 30 capsuleRfl: 5 Prescriptions as of 10/03/2019 Sig: TAMSULOSIN 0.4 MG CAPSULE Take 1 capsule by mouth once * METFORMIN 500 MG TABLET Take 2 tablets by mouth twice* FINASTERIDE 5 MG TABLET Take 1 tablet by mouth once d* GLYBURIDE 2.5 MG TABLET Take 1 tablet by mouth once d* SIMVASTATIN 40 MG TABLET Take 1 tablet by mouth daily * MAGNESIUM HYDROXIDE 400 MG/5 * Take 15 mL by mouth once malka * DOCUSATE SODIUM 100 MG CAPSULE Take 1 capsule by mouth twice * BLOOD SUGAR DIAGNOSTIC STRIPS Test blood sugar(s) 2 times * LANCETS 30 GAUGE Test blood sugar(s) 2 times * BLOOD-GLUCOSE METER KIT Glucose Meter of Choice - Kit. BLOOD GLUCOSE CONTROL, NORMAL* Test controls as needed. CLOPIDOGREL 75 MG TABLET Take 1 tablet by mouth once d* ASPIRIN 81 MG TABLET,DELAYED * Take 1 tablet by mouth once d * Problem List As Of Date 10/03/2019 Noted Resolved Umbilical hernia without mention of obstruction*08/01/2006 0 01/18/2014 BPH with obstruction/lower urinary tract sympto*02/16/2009 Diabetes Mellitus [E11.9] 03/22/2009 06/07/2014 Mixed Hyperlipidemia [E78.2] 03/22/2009 Elevated PSA [R97.20] 03/23/2009 Gross hematuria [R31.0] 12/28/2009 04/01/2013 Other calculus in bladder [N21.0] 12/28/2009 04/01/2013 Screening for other and unspecified genitourina*04/21/2011 1 06/01/2012 Other specified disorders of bladder [N32.89] 07/04/201106/2012 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 Medications Discontinued During This Encounter tamsulosin ER (FLOMAX) 0.4 mg cap 30 c* 5 03/21/2019 0 Route: ORAL Sig: Take 1 capsule by mouth once daily. Disc: Reason for discontinue is not on file. Encounter Status:Closed by GAVI CARSON CNP on 10/03/19 cnpn on 2019-09-13 CNPN Telephone (INTMWS) Normal 09-13-2019 [facility] JOYCE PUENTE ([id number]) 1945 [facility] Date Time Provider Department ([id number]) 09/13/19 MELE KESSLER INTMellissaWS During your visit today, we recorded the following informati on about you: Edna Herman LPN 09/13/2019 2:23 PM Signed PA completed via [employer], awaiting response. PRIOR AUTHORIZATION Medication for Prior Authorization: Glyburide Other formulary meds available : glipizide Insurance Company: [employer] phone number: [employer]fall: [phone] Patient insurance ID number: [id number] Edna Herman [employer] Edna Herman [employer] 09/13/2019 3:13 PM Signed Received denial, glipizide preferred. Unable to locate trial of glipizide. LM for pt to return call to Triage nurse. Please confirm if pt has tried glipizide and discontinue moon son. Edna Herman MARY 02/01/2020 10:48 AM Signed TC to [facility] pharmacy pt has not filled glyburide since A pril. TC to pt he states has not tried glipizide, but BS while not on glyburid e has been controlled. Average nonfasting 130s, fasting 90s . Pt has upcoming appt /c pcp on 02/20/20, pt will discuss then unless further advised. Mele Kessler MD 02/01/2020 5:19 PM Signed Please instruct patient to do labs prior. Taniya White LPN 02/02/2020 9:25 AM Signed Patient notified of results and provider's instructions. P atient verbalizes understanding. Also asked pt to call to get a lab appt. Taniya White LPN Allergies As of Date: 09/13/2019 (No Known Allergies) Date Reviewed: 01/11/2019 Reviewed by: Mary Aguilar - Fully Assessed Reason for Visit: Insurance Authorization [[id number]] Cmt: glyburide Prescriptions as of 09/13/2019 Sig: METFORMIN 500 MG TABLET Take 2 tablets by mouth twice* FINASTERIDE 5 MG TABLET Take 1 tablet by mouth once d* X TAMSULOSIN 0.4 MG CAPSULE Take 1 capsule by mouth once * SIMVASTATIN 40 MG TABLET Take 1 tablet by mouth daily * MAGNESIUM HYDROXIDE 400 MG/5 * Take 15 mL by mouth once malka * DOCUSATE SODIUM 100 MG CAPSULE Take 1 capsule by mouth twice * X BLOOD SUGAR DIAGNOSTIC STRIPS Test blood sugar(s) 2 times * X LANCETS 30 GAUGE Test blood sugar(s) 2 times * BLOOD GLUCOSE CONTROL, NORMAL* Test controls as needed. X BLOOD-GLUCOSE METER KIT Glucose Meter of Choice - Kit. CLOPIDOGREL 75 MG TABLET Take 1 tablet by mouth once d* ASPIRIN 81 MG TABLET,DELAYED * Take 1 tablet by mouth once d * Problem List As Of Date 09/13/2019 Noted Resolved Umbilical hernia without mention of obstruction*08/01/2006 0 01/18/2014 BPH with obstruction/lower urinary tract sympto*02/16/2009 Diabetes Mellitus [E11.9] 03/22/2009 06/07/2014 Mixed Hyperlipidemia [E78.2] 03/22/2009 Elevated PSA [R97.20] 03/23/2009 Gross hematuria [R31.0] 12/28/2009 04/01/2013 Other calculus in bladder [N21.0] 12/28/2009 04/01/2013 Screening for other and unspecified genitourina*04/21/2011 1 06/01/2012 Other specified disorders of bladder [N32.89] 07/04/201106/2012 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 Encounter Status:Closed by MELE KESSLER MD on 02/01/20 obsolete on 2019-07 OBSOLETE Refill (INTMWS) Normal 08-29-2019 Gibran miller JOYCE Aragon ([id number]) 1945 [facility] Date Time Provider Department ([id number]) 08/29/19 MELE KESSLER INTMWS During your visit today, we recorded the following informati on about you: Zoila Harkins RN 08/29/2019 9:29 AM Signed Patient has been identified by name and date of : Yes Patient phones for refill(s): Pending Prescriptions Disp Refills METFORMIN 500 MG TABLET 360 tablet 1 Sig: Take 2 tablets by mouth twice daily with meals. JIMMY: No Date of last office visit in primary care: 07/01/19, future a ppt. 12/29/19 Last 2 Encounter Wt Readings: Date: Wt: 07/01/2019 95.3 kg (210 lb) 01/11/2019 93.4 kg (206 lb) Previous labs/tests for medication: Diabetes: Hemoglobin A1C (%) Date Value 06/28/2019 6.5 06/18/2018 5.9 Hemoglobin A1C (POCT) (%) Date Value 10/19/2018 6.0 Please advise. Thank you. Zoila Harkins RN Allergies As of Date: 08/29/2019 (No Known Allergies) Date Reviewed: 01/11/2019 Reviewed by: Mary Aguilar - Fully Assessed Reason for Visit: Refill Request [94] Order(s):metFORMIN (GLUCOPHAGE) 500 mg tabletTake 2 tablets by mouth twice daily with meals.Disp: 360 tabletRfl: 1 Prescriptions as of 08/29/2019 Sig: METFORMIN 500 MG TABLET Take 2 tablets by mouth twice* FINASTERIDE 5 MG TABLET Take 1 tablet by mouth once d* GLYBURIDE 2.5 MG TABLET Take 1 tablet by mouth once d* TAMSULOSIN 0.4 MG CAPSULE Take 1 capsule by mouth once * SIMVASTATIN 40 MG TABLET Take 1 tablet by mouth daily * MAGNESIUM HYDROXIDE 400 MG/5 * Take 15 mL by mouth once malka * DOCUSATE SODIUM 100 MG CAPSULE Take 1 capsule by mouth twice * BLOOD SUGAR DIAGNOSTIC STRIPS Test blood sugar(s) 2 times * LANCETS 30 GAUGE Test blood sugar(s) 2 times * BLOOD-GLUCOSE METER KIT Glucose Meter of Choice - Kit. BLOOD GLUCOSE CONTROL, NORMAL* Test controls as needed. CLOPIDOGREL 75 MG TABLET Take 1 tablet by mouth once d* ASPIRIN 81 MG TABLET,DELAYED * Take 1 tablet by mouth once d * Problem List As Of Date 08/29/2019 Noted Resolved Umbilical hernia without mention of obstruction*08/01/2006 0 01/18/2014 BPH with obstruction/lower urinary tract sympto*02/16/2009 Diabetes Mellitus [E11.9] 03/22/2009 06/07/2014 Mixed Hyperlipidemia [E78.2] 03/22/2009 Elevated PSA [R97.20] 03/23/2009 Gross hematuria [R31.0] 12/28/2009 04/01/2013 Other calculus in bladder [N21.0] 12/28/2009 04/01/2013 Screening for other and unspecified genitourina*04/21/2011 1 06/01/2012 Other specified disorders of bladder [N32.89] 07/04/201106/2012 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 Medications Discontinued During This Encounter metFORMIN (GLUCOPHAGE) 500 mg tablet 360 * 1 02/16/20192019 Route: ORAL Sig: Take 2 tablets by mouth twice daily with meals. Disc: Reason for discontinue is not on file. Encounter Status:Closed by GAVI CARSON CNP on 08/29/19 progress on 2019-06 PROGRESS HNO ID: [id number] Normal 07-01-2019 [facility] Author: Mele Beck ([id number]) Service: ? Author Type: Physician Type: Progress Notes Filed: 07/02/2019 9:07 PM Note Text: This note was created using [employer]. Subjective Joyce Puente is a 73 year old male. He was doing well. His diabetes mellitus was controlled. He did not bring his meter , but his home readings 100-130. Hypoglycemia was rare. He followed with Dr. Kim for cardiology, and heart issues were stable. 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 - tamsulosin ER (FLOMAX) 0.4 mg cap Take 1 capsule by mouth once daily. - metFORMIN (GLUCOPHAGE) 500 mg tablet Take 2 tablets by agatha th twice daily with meals. - simvastatin (ZOCOR) 40 mg tablet Take 1 tablet by mouth da ford at bedtime. For cholesterols. - finasteride (PROSCAR) 5 mg tablet Take 1 tablet by mouth o nce daily. - magnesium hydroxide (MILK OF MAGNESIA) 400 mg/5 mL suspens ion Take 15 mL by mouth once daily as needed for Constipation. - docusate sodium (COLACE) 100 mg capsule Take 1 capsule by mouth twice daily. For constipation. - blood sugar diagnostic (ClubLocalTOUCH ULTRA TEST) test strip Te st blood sugar(s) 2 times daily. Dx: E11.9 . Insulin: No - lancets (ONETOUCH DELICA LANCETS) 30 gauge misc Test blood sugar(s) 2 times daily. Dx: E11.9 . Insulin: No - Blood-Glucose Meter monitoring kit Glucose Meter of Choice - Kit. - Blood Glucose Control, Normal soln Test controls as needed . - clopidogrel 75 mg tablet Take 1 tablet by mouth once daily . - aspirin, enteric coated 81 mg EC tablet Take 1 tablet by m outh once daily. No current facility-administered medications for this visit. Review of Systems Constitutional: Negative. Respiratory: Negative. Cardiovascular: Negative. Gastrointestinal: Negative. Genitourinary: Negative for difficulty urinating, dysuria an d hematuria. Musculoskeletal: Negative for back pain. Neurological: Negative for numbness. Objective BP 112/70 (BP Site: Left Arm, BP Position: Sitting, BP Cuff Size: Large Adult) Pulse 66 Resp 16 Wt 95.3 kg (210 lb) BMI 31.9 3 kg/m? Physical Exam Constitutional: General: He is not in acute distress. Appearance: He is obese. Eyes: Conjunctiva/sclera: Conjunctivae normal. Cardiovascular: Rate and Rhythm: Normal rate and regular rhythm. Occasional extrasystoles are present. Heart sounds: S1 normal and S2 normal. No murmur. No gallop. Pulmonary: Breath sounds: Normal breath sounds. Abdominal: Tenderness: There is no abdominal tenderness. Musculoskeletal: Right lower leg: No edema. Left lower leg: No edema. Neurological: Mental Status: He is alert. Feet:Shoes and socks removed, No deformities, ulcers, callus es, normal distal pulses, sensitive to 10 gm monofilament and nails not able for Deformed, Hypertrophic or Yellowish Component Latest Ref Rng AND Units 06/28/2019 Glucose 74 - 99 mg/dL 95 BUN 9 - 24 mg/dL 19 Creatinine 0.73 - 1.22 mg/dL 1.08 Sodium 136 - 144 mmol/L 141 Potassium 3.7 - 5.1 mmol/L 4.6 Chloride 97 - 105 mmol/L 105 CO2 22 - 30 mmol/L 26 Anion Gap 9 - 18 mmol/L 10 Calcium 8.5 - 10.2 mg/dL 9.2 eGFR- >60 eGFR-All Other Races . >60 WBC 3.70 - 11.00 k/uL 3.81 RBC 4.20 - 6.00 m/uL 4.66 Hemoglobin 13.0 - 17.0 g/dL 13.9 Hematocrit 39.0 - 51.0 % 42.4 MCV 80.0 - 100.0 fL 91.0 MCH 26.0 - 34.0 pG 29.8 MCHC 30.5 - 36.0 g/dL 32.8 RDW-CV 11.5 - 15.0 % 12.2 Platelet Count 150 - 400 k/uL 203 MPV 9.0 - 12.7 fL 9.1 Absolute nRBC <0.01 k/uL <0.01 Cholesterol, Total <200 mg/dL 140 Triglyceride <150 mg/dL 146 HDL Cholesterol >39 mg/dL 33 (L) LDL Cholesterol <100 mg/dL 78 Non HDL Cholesterol <130 mg/dL 107 Fasting Time hrs 15 VLDL Cholesterol <30 mg/dL 29 TC:HDL Ratio <5.10 4.24 LDL:HDL Ratio <2.54 2.36 Creatinine, Ur Random (UCRR) 20 - 300 mg/dL 135.0 Albumin, Urine Random mg/L 72.6 Albumin/Creat Ratio <30 mg/g 54 (H) Hemoglobin A1C 4.3 - 5.6 % 6.5 (H) Estimated Average Glucose mg/dL 140 PSA 0.00 - 2.59 ng/mL 5.62 (H) Assessment and Plan 1. Elevated PSA - ICD9: 790.93, ICD10: R97.20 (primary diagn osis) Option discussed were referral to urology or continued monit ori. We agreed to continued observation. 2. BPH with obstruction/lower urinary tract symptoms - ICD9: 600.01, 599.69, ICD10: N40.1, N13.8 Controlled. - FINASTERIDE 5 MG TABLET 3. Controlled type 2 diabetes mellitus without complication, without long-term current use of insulin (HCC) - ICD9: 250.00, ICD10 : E11.9 Controlled. - Continue current medications 4. Mixed hyperlipidemia - ICD9: 272.2, ICD10: E78.2 - good control - Continue current medication. 5. CAD S/P percutaneous coronary angioplasty - ICD9: 414.01, V45.82, ICD10: I25.10, Z98.61 Stable. Mele Kessler MD cnov on 2019-07-01 CNOV Office Visit (INTMWS) Normal 07-01-[address] [place] [address] Clinic JOYCE PUENTE ([id number]) 1945 [place] Date Time Provider Department ([id number]) 07/01/19 4:00 PM MELE KESSLER INTMWS During your visit today, we recorded the following informati on about you: Pulse Respiration Blood pressure Weight 66/minute 16/minute 112/70 95.3 kg Mele Kessler MD 07/02/2019 9:07 PM Signed This note was created using [employer]. Subjective Joyce Puente is a 73 year old male. He was doing well. His diabetes mellitus was controlled. He did not bring his meter , but his home readings 100-130. Hypoglycemia was rare. He followed with Dr. Kim for cardiology, and heart issues were stable. 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 - tamsulosin ER (FLOMAX) 0.4 mg cap Take 1 capsule by mouth once daily. - metFORMIN (GLUCOPHAGE) 500 mg tablet Take 2 tablets by mouth twice daily with meals. - simvastatin (ZOCOR) 40 mg tablet Take 1 tablet by mouth daily at bedtime. For cholesterols. - finasteride (PROSCAR) 5 mg tablet Take 1 tablet by mouth o nce daily. - magnesium hydroxide (MILK OF MAGNESIA) 400 mg/ 5 mL suspension Take 15 mL by mouth once daily as needed for Constipation. - docusate sodium (COLACE) 100 mg capsul e Take 1 capsule by mouth twice daily. For constipation. - blood sugar diagnostic (ON ETOUCH ULTRA TEST) test strip Test blood sugar(s) 2 times daily. Dx: E11.9 . Insulin: No - lancets (ONETOUCH DELICA LANCETS) 30 gauge mis c Test blood sugar(s) 2 times daily. Dx: E11.9 . Insulin: No - Blood-Glucose Meter monitoring kit Glucose Meter of Choice - Kit. - Blood Glucose Control, Normal soln Test controls as needed . - clopidogrel 75 mg tablet Take 1 tablet by mouth once daily . - aspirin, enteric coated 81 mg EC tablet Take 1 table t by mouth once daily. No current facility-administered medications for this visit. Review of Systems Constitutional: Negative. Respiratory: Negative. Cardiovascular: Negative. Gastrointestinal: Negative. Genitourinary: Negative for difficulty urinating, dysuria an d hematuria. Musculoskeletal: Negative for back pain. Neurological: Negative for numbness. Objective BP 112/70 (BP Site: Left Arm, BP Positio n: Sitting, BP Cuff Size: Large Adult) Pulse 66 Resp 16 Wt 95.3 kg (210 lb) BMI 31.93 kg/m? Physical Exam Constitutional: General: He is not in acute distress. Appearance: He is obese. Eyes: Conjunctiva/sclera: Conjunctivae normal. Cardiovascular: Rate and Rhythm: Normal rate and regular rhythm. Occasional extrasystoles are present. Heart sounds: S1 normal and S2 normal. No murmur. No gallop. Pulmonary: Breath sounds: Normal breath sounds. Abdominal: Tenderness: There is no abdominal tenderness. Musculoskeletal: Right lower leg: No edema. Left lower leg: No edema. Neurological: Mental Status: He is alert. Feet:Shoes and socks removed, No deformities, ul cers, calluses, normal distal pulses, sensitive to 10 gm monofilament and nails notable fo r Deformed, Hypertrophic or Yellowish Component Latest Ref Rng AND Units 06/28/2019 Glucose 74 - 99 mg/dL 95 BUN 9 - 24 mg/dL 19 Creatinine 0.73 - 1.22 mg/dL 1.08 Sodium 136 - 144 mmol/L 141 Potassium 3.7 - 5.1 mmol/L 4.6 Chloride 97 - 105 mmol/L 105 CO2 22 - 30 mmol/L 26 Anion Gap 9 - 18 mmol/L 10 Calcium 8.5 - 10.2 mg/dL 9.2 eGFR- >60 eGFR-All Other Races . >60 WBC 3.70 - 11.00 k/uL 3.81 RBC 4.20 - 6.00 m/uL 4.66 Hemoglobin 13.0 - 17.0 g/dL 13.9 Hematocrit 39.0 - 51.0 % 42.4 MCV 80.0 - 100.0 fL 91.0 MCH 26.0 - 34.0 pG 29.8 MCHC 30.5 - 36.0 g/dL 32.8 RDW-CV 11.5 - 15.0 % 12.2 Platelet Count 150 - 400 k/uL 203 MPV 9.0 - 12.7 fL 9.1 Absolute nRBC <0.01 k/uL <0.01 Cholesterol, Total <200 mg/dL 140 Triglyceride <150 mg/dL 146 HDL Cholesterol >39 mg/dL 33 (L) LDL Cholesterol <100 mg/dL 78 Non HDL Cholesterol <130 mg/dL 107 Fasting Time hrs 15 VLDL Cholesterol <30 mg/dL 29 TC:HDL Ratio <5.10 4.24 LDL:HDL Ratio <2.54 2.36 Creatinine, Ur Random (UCRR) 20 - 300 mg/dL 135.0 Albumin, Urine Random mg/L 72.6 Albumin/Creat Ratio <30 mg/g 54 (H) Hemoglobin A1C 4.3 - 5.6 % 6.5 (H) Estimated Average Glucose mg/dL 140 PSA 0.00 - 2.59 ng/mL 5.62 (H) Assessment and Plan 1. Elevated PSA - ICD9: 790.93, ICD10: R97.20 (primary diagn osis) Option discussed were referral to urology or continued monitoring. We agreed to continued observation. 2. BPH with obstruction/lower urinary tract symptoms - ICD9: 600.01, 599.69, ICD10: N40.1, N13.8 Controlled. - FINASTERIDE 5 MG TABLET 3. Controlled type 2 diabetes mellitus w ithout complication, without long-term current use of insulin (HCC) - ICD9: 250.00, ICD10: E11.9 Controlled. - Continue current medications 4. Mixed hyperlipidemia - ICD9: 272.2, ICD10: E78.2 - good control - Continue current medication. 5. CAD S/P percutaneous coronary angioplasty - ICD9: 414.0 1, V45.82, ICD10: I25.10, Z98.61 Stable. MD Mele Haynes MD 07/01/2019 4:57 PM Signed Ask pharmacy about shingles vaccine (2 d oses) and tetanus booster (Td or Tdap) Referring Provider: MELE KESSLER [[id number]] Allergies As of Date: 07/01/2019 (No Known Allergies) Date Reviewed: 01/11/2019 Reviewed by: Mary Aguilar - Fully Assessed Reason for Visit: Established Patient [[id number]] Primary Visit Diagnosis:Elevated PSA [R97.20] Other Visit Diagnoses:BPH with obstruction/lower urinary tra ct symptoms [N40.1, N13.8] Controlled type 2 diabetes mellitus without complication, without long-term current use of insulin (HCC) [E11.9] Mixed hyperlipidemia [E78.2] CAD S/P percutaneous coronary angioplasty [I25.10, Z98.61] Order(s):finasteride (PROSCAR) 5 mg tabletTake 1 tablet by out once daily.Disp: 90 tabletRfl: 3 BASIC METABOLIC PNL [SQBMP] Order #: [id number] FUTURE HGB A1C [QBFIX3Z] Order #: [id number] FUTURE PSA/PROSTSPECAG DIAG [SQPSA] Order #: [id number] FUTURE Prescriptions as of 07/01/2019 Sig: FINASTERIDE 5 MG TABLET Take 1 tablet by mouth once d* GLYBURIDE 2.5 MG TABLET Take 1 tablet by mouth once d* TAMSULOSIN 0.4 MG CAPSULE Take 1 capsule by mouth once * METFORMIN 500 MG TABLET Take 2 tablets by mouth twice* SIMVASTATIN 40 MG TABLET Take 1 tablet by mouth daily * MAGNESIUM HYDROXIDE 400 MG/5 * Take 15 mL by mouth once malka * DOCUSATE SODIUM 100 MG CAPSULE Take 1 capsule by mouth twice * BLOOD SUGAR DIAGNOSTIC STRIPS Test blood sugar(s) 2 times * LANCETS 30 GAUGE Test blood sugar(s) 2 times * BLOOD-GLUCOSE METER KIT Glucose Meter of Choice - Kit. BLOOD GLUCOSE CONTROL, NORMAL* Test controls as needed. CLOPIDOGREL 75 MG TABLET Take 1 tablet by mouth once d* ASPIRIN 81 MG TABLET,DELAYED * Take 1 tablet by mouth once d * Problem List As Of Date 07/01/2019 Noted Resolved Umbilical hernia without mention of obstruction*08/01/2006 0 01/18/2014 BPH with obstruction/lower urinary tract sympto*02/16/2009 Diabetes Mellitus [E11.9] 03/22/2009 06/07/2014 Mixed Hyperlipidemia [E78.2] 03/22/2009 Elevated PSA [R97.20] 03/23/2009 Gross hematuria [R31.0] 12/28/2009 04/01/2013 Other calculus in bladder [N21.0] 12/28/2009 04/01/2013 Screening for other and unspecified genitourina*04/21/2011 1 06/01/2012 Other specified disorders of bladder [N32.89] 07/04/201106/2012 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 Medications Discontinued During This Encounter finasteride (PROSCAR) 5 mg tablet 30 t* 5 01/24/2019 0 Route: ORAL Sig: Take 1 tablet by mouth once daily. Disc: Reason for discontinue is not on file. Disposition: Return in about 6 months (around 12/30/2019). Follow-up and Disposition History Recorded Encounter Status:Closed by MELE KESSLER MD on 07/02/19 psa, diagnostic on 2019-06-28 PSA, Diagnostic 5.62 0.00-2.59 ng/mL High 06-28-2019 [facility] ([id number]) Comment: Result Comment: Total PSA te st methodology used is the Electrochemiluminescence Immunoassay. For an individual patient, t he significance of a PSA level should be interpreted in a broad clinical context, including age, race, family history, digital rectal exam, prostate size, results of prior te sting (prostate biopsy, free PSA, PCA3), and use of 5-alpha reductase inhibitors. Considering the high inciden ce of asymptomatic cancer in the general population that may not pose an ultimate risk to a patient, the decision to recommend urological evaluation or prostate biopsy should be individualized after con sideration of all these factors. REFERENCE: Gaston Machado M.D., M.P. H., Torito Mcghee M.D., Ph.D., Marvel Merrill M.D., Diana Rich, M.P.H., Kavitha Handy, Sc.D. Effect of Verification Bias on Screening for Prostate Cancer by Measurement of Prostatic Specific Antigen. N Engl J Med 2003,349:335-42. Performed By: #### HBA1C, BM P, PSA ####[facility] [address] [place], [place] [address] [phone] lipid panel, basic on 2019-06-28 Cholesterol [Mass/Vol] 140 <200 mg/dL Normal 020 [facility] ([id number]) Comment: Result Comment: <200 mg/dL, Desirable 200-239 mg/dL, Borderline hi gh >239 mg/dL, High Performed By: #### CBC, LIPB ####[facility] [address] [place], [place] [phone] Cholesterol in HDL [Mass/Vol] 33 >39 mg/dL Low 06-28-2019 [facility] ([id number]) Comment: Result Comment: 40-59 mg/dL, Acceptable >59 mg/dL, High: Negative ri sk factor for coronary heart disease <40 mg/dL, Low: Positive ris k factor for coronary heart disease Performed By: #### CBC, LIPB ####[facility] [place] [address] [phone] Cholesterol in LDL 78 <100 mg/dL Normal 06-28-2019 [facility] [Mass/Vol] [place] ([id number]) Comment: Result Comment: <100 mg/dL, Optimal 100-129 mg/dL, Near optimal/ above optimal 130-159 mg/dL, Borderline hi gh 160-189 mg/dL, High >189 mg/dL, Very high Secondary prevention optimal LDL Cholesterol levels are recommended to be < 70 mg/dL Performed By: #### CBC, LIPB ####[address] [phone] Fasting Time 15 hrs Normal 06-28-2019 [facility] ([id number]) Comment: Performed By: #### CBC, LIPB ####[address] [phone] LDL:HDL Ratio 2.36 <2.54 Normal 06-28-2019 [facility] (78248) Comment: Result Comment: Reference: 1. National Cholesterol Educ ation Program ATP III Guideline At-A-Glance Quick Desk Reference: National Heart, Lung, and Blood [place]. National Institutes of Health. 2001: NIH Publication No. 01-3305. 2. An International Atherosc lerosis Society position paper: global recommendations for the management of dyslipidemia: executive summary, Atherosclerosis. 2014: 232(2):410-413. Performed By: #### CBC, LIPB ####[facility] [place], [place] [phone] Non HDL Cholesterol 107 <130 mg/dL Normal 06-28-2019 [facility] (64273) Comment: Result Comment: <130 mg/dL, Optimal 130-159 mg/dL, Near optimal/ above optimal 160-189 mg/dL, Borderline hi gh 190-219 mg/dL, High >219 mg/dL, Very high Secondary prevention optimal non HDL Cholesterol levels are recommended to be < 100 mg/dL Performed By: #### CBC, LIPB ####[place] [address], [place] [phone] TC:HDL Ratio 4.24 <5.10 Normal 06-28-2019 [facility] (19529) Comment: Performed By: #### CBC, LIPB ####[place] [address], [place] [phone] Triglyceride [Mass/Vol] 146 <150 mg/dL Normal 2019 [facility] (90323) Comment: Result Comment: <150 mg/dL, Normal 150-199 mg/dL, Borderline hi gh 200-499 mg/dL, High >499 mg/dL, Very high Performed By: #### CBC, LIPB ####[place] [address], [place] [phone] VLDL Cholesterol 29 <30 mg/dL Normal 06-28-2019 [facility] (47640) Comment: Performed By: #### CBC, LIPB ####[place] [address], [place] [phone] hemoglobin a1c on 2 HbA1c (Bld) [Mass fraction] 140 mg/dL Normal [facility] (58747) Comment: Result Comment: eAG: (Estima mery average glucose) is a calculated value from HgbA1c and is desk representative of the average blood glucose level in the last 2-3 month period. Performed By: #### HBA1C, BM P, PSA ####[place] [address], [place] [address] [phone] HbA1c (Bld) [Mass fraction] 6.5 4.3-5.6 % High [facility] (22027) Comment: Result Comment: [place] Ashley betes Association guidelines indicate that patients with HgbA1c in the range 5.7-6.4% are at increased risk for development of diabetes, and intervention by lifestyle modification may be beneficial. HgbA1c greater o r equal to 6.5% is considered diagnostic of diabetes. Performed By: #### HBA1C, BM P, PSA ####[place] [address], [place] [address] [phone] cbc on 2019-06-28 Absolute nRBC <0.01 <0.01 Normal 06-28-2019 [facility] (20455) Comment: Performed By: #### CBC, LIPB ####[address], [place] [phone] Erythrocyte distribution 12.2 11.5-15.0 % Normal 06-28 [facility] width (RBC) [Ratio] [place] ([id number]) Comment: Performed By: #### CBC, LIPB ####[address], [place] [phone] Hematocrit (Bld) [Volume 42.4 39.0-51.0 % Normal 06-28 [facility] fraction] [place] (44392) Comment: Performed By: #### CBC, LIPB ####[address] [place] [phone] Hemoglobin (Bld) 13.9 13.0-17.0 g/dL Normal 06-28-2019 [facility] [Mass/Vol] [place] (67134) Comment: Performed By: #### CBC, LIPB ####[place] [address], [place] [phone] MCH (RBC) [Entitic mass] 29.8 26.0-34.0 pG Normal 06-28 [facility] (12129) Comment: Performed By: #### CBC, LIPB ####[place] [address] [place] [phone] MCHC (RBC) [Mass/Vol] 32.8 30.5-36.0 g/dL Normal 06-28-19 20 [facility] (66887) Comment: Performed By: #### CBC, LIPB ####[place] [address], [place] [phone] MCV (RBC) [Entitic vol] 91.0 80.0-100.0 fL Normal 06-28 [facility] (32884) Comment: Performed By: #### CBC, LIPB ####[place] [address], [place] [phone] Platelet mean volume 9.1 9.0-12.7 fL Normal 0 [facility] (Bld) [Entitic vol] (58246) Comment: Performed By: #### CBC, LIPB ####[place] [address], [place] [phone] Platelets (Bld) [#/Vol] 203 150-400 k/uL Normal 2019 [facility] (63612) Comment: Performed By: #### CBC, LIPB ####[place] [address] [place], [place] [phone] RBC (Bld) [#/Vol] 4.66 4.20-6.00 m/uL Normal 06-28-2019 [facility] (11877) Comment: Performed By: #### CBC, LIPB ####[place] [address], [place] [phone] WBC (Bld) [#/Vol] 3.81 3.70-11.00 k/uL Normal 06-28-2019 [facility] (54069) Comment: Performed By: #### CBC, LIPB ####[place] [address], [place] [phone] basic metabolic panl on 2019-06-28 Anion gap [Moles/Vol] 10 9-18 mmol/L Normal 06-28-19 20 [facility] (08938) Comment: Performed By: #### HBA1C, BM P, PSA ####[place] [address] [place] [place] [address] [phone] Calcium [Mass/Vol] 9.2 8.5-10.2 mg/dL Normal 06-28-2019 [facility] (29752) Comment: Performed By: #### HBA1C, BM P, PSA ####[place] [address] [place] [address] [phone] Chloride [Moles/Vol] 105 97-105 mmol/L Normal 0 [facility] (07109) Comment: Performed By: #### HBA1C, BM P, PSA ####[place] [address] [place] [address] [phone] CO2 [Moles/Vol] 26 22-30 mmol/L Normal 06-28-2019 [facility] (02733) Comment: Performed By: #### HBA1C, BM P, PSA ####[place] [address] [place] [address] [phone] Creatinine [Mass/Vol] 1.08 0.73-1.22 mg/dL Normal 06-28-19 20 [facility] (44057) Comment: Performed By: #### HBA1C, BM P, PSA ####[place] [address] [place] [address] [phone] eGFR- Amer. >60 Normal 06-28-2019 [facility] (91598) Comment: Performed By: #### HBA1C, BM P, PSA ####[place] [address] [place] [address] [phone] GFR/1.73 sq M predicted >60 mL/min/{1.73_m2} Normal 06-28-2019 [facility] among non-blacks MDRD [place] ([id number]) (S/P/Bld) [Vol rate/Area] Comment: Result Comment: eGFR (Estima mery GFR) Units of measure: mL/min/1.73 meters squared eGFR is derived from the ree xpressed MDRD Study equation using the following parameters: serum creatinine, age, gender and race. The creatinine assay has been calibrated to be traceable to IDMS. An eGFR <60 mL/min/1.73m2 fo r >3 months is consistent with chronic kidney disease. Refer to KDOQI guidelines for clinical interpretation. In patients with unstable re nal function, e.g. those with acute kidney injury, the eGFR may not accurately reflect actual GFR. Performed By: #### HBA1C, BM P, PSA ####[facility] [address] [place] [address] [phone] Glucose [Mass/Vol] 95 74-99 mg/dL Normal 06-28-2019 [facility] (67952) Comment: Result Comment: The [place] Diabetes Association (ADA) provides guidance for cutoff values for fasting glucose and random glucose. The ADA defines fasting as no caloric intake for at least 8 hours. Fas ting plasma glucose results between 100 to 125 mg/dL indicate increased risk for diabetes (prediabetes). Fasting plasma glucose resul ts greater than or equal to 126 mg/dL meet the criteria for diagnosis of diabetes. In the absence of unequivocal hyperglycemia, results should be confirmed by repeat testing. In a patient with classic s ymptoms of hyperglycemia or hyperglycemic crisis, random plasma glucose results greater than or equal to 200 mg/dL meet the criteria for diagnosis of diabetes. Reference: Standards of [facility] Care in Diabetes 2016, [place] Diabetes Association. Diabetes Care. 2016.39(Suppl 1). Performed By: #### HBA1C, BM P, PSA ####[facility] [address] [place] [address] [phone] Potassium [Moles/Vol] 4.6 3.7-5.1 mmol/L Normal 06-28-19 [facility] (77999) Comment: Performed By: #### HBA1C, BM P, PSA ####[facility] [address] [place] [address] [phone] Sodium [Moles/Vol] 141 136-144 mmol/L Normal 06-28-2019 [facility] (74175) Comment: Performed By: #### HBA1C, BM P, PSA ####[facility] [place] [address] [phone] Urea nitrogen [Mass/Vol] 19 9-24 mg/dL Normal 06-28 [facility] (05618) Comment: Performed By: #### HBA1C, BM P, PSA ####[place] [address] [place] [address] [phone] albumin/creat ratio on 2019-06-28 Albumin Urine Random 72.6 mg/L Normal 0 [facility] (78307) Comment: Performed By: #### UACR #### [place] [address], [place] [phone] Albumin/Creat Ratio 54 <30 mg/g High 06-28-2019 [facility] (72981) Comment: Result Comment: Adult Male a nd Female Nephrotic Criteria: <30 mg/g is considered sarah l to mildly increased 30-300 mg/g is considered mo derately increased >300 mg/g is considered gilberto rely increased KDIGO. (2013). KDIGO 2012 Cl inical Practice Guideline for the Evaluation and Management of Chronic Kidney Disease. Official Journal of the International Society of Nephrology, 3(1), 1-150. Performed By: #### UACR #### [address] [phone] Creatinine,Urine,Ran 135.0 20-300 mg/dL Normal 0 [facility] (23900) Comment: Performed By: #### UACR #### [facility] [place], [place] [phone] cnptoutreach on CNPTOUTREACH Patient Outreach (INTMWH) Normal 0 06-14-2019 [facility] JOYCE PUENTE ([id number]) 1945 [facility] Date Time Provider Department (13552) 06/14/19 [facility]LE KESSLER [facility] During your visit today, we recorded the following informati on about you: Allergies As of Date: 06/14/2019 (No Known Allergies) Date Reviewed: 01/11/2019 Reviewed by: Mary Aguilar - Fully Assessed Visit Diagnoses:Mixed hyperlipidemia [E78.2] Diabetes mellitus type 2, controlled, without complications (HCC) [E11.9] Order(s):LIPID PANEL BASIC [SQLIPB] Order #: [id number] FUTU RE CBC [SQCBC] Order #: [id number] FUTURE Prescriptions as of 06/14/2019 Sig: GLYBURIDE 2.5 MG TABLET Take 1 tablet by mouth once d* TAMSULOSIN 0.4 MG CAPSULE Take 1 capsule by mouth once * METFORMIN 500 MG TABLET Take 2 tablets by mouth twice* SIMVASTATIN 40 MG TABLET Take 1 tablet by mouth daily * FINASTERIDE 5 MG TABLET Take 1 tablet by mouth once d* MAGNESIUM HYDROXIDE 400 MG/5 * Take 15 mL by mouth once malka * DOCUSATE SODIUM 100 MG CAPSULE Take 1 capsule by mouth twice * BLOOD SUGAR DIAGNOSTIC STRIPS Test blood sugar(s) 2 times * LANCETS 30 GAUGE Test blood sugar(s) 2 times * BLOOD-GLUCOSE METER KIT Glucose Meter of Choice - Kit. BLOOD GLUCOSE CONTROL, NORMAL* Test controls as needed. CLOPIDOGREL 75 MG TABLET Take 1 tablet by mouth once d* ASPIRIN 81 MG TABLET,DELAYED * Take 1 tablet by mouth once d * Problem List As Of Date 06/14/2019 Noted Resolved Umbilical hernia without mention of obstruction*08/01/2006 0 01/18/2014 BPH with obstruction/lower urinary tract sympto*02/16/2009 Diabetes Mellitus [E11.9] 03/22/2009 06/07/2014 Mixed Hyperlipidemia [E78.2] 03/22/2009 Elevated PSA [R97.20] 03/23/2009 Gross hematuria [R31.0] 12/28/2009 04/01/2013 Other calculus in bladder [N21.0] 12/28/2009 04/01/2013 Screening for other and unspecified genitourina*04/21/2011 1 06/01/2012 Other specified disorders of bladder [N32.89] 07/04/201106/2012 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 Author Type: Physical Therapist Type: Progress Notes Filed: 05/30/2019 1:26 PM Note Text: 05/30/2019 [facility] PHYSICAL THERAPY DISCONTINUANCE OF CARE Plan of Care Period: Start of Care Date: 02/03/19 Last Visit Date: 03/03/2019 Therapy Program: The following is a summary of the intervent ions provided for this episode of care; Therapeutic exercise and Patient/Family/Caregiver Education Assessment: Based on most recent visit, patient was progressing as expec mery toward functional goals based on documented subjective information on progress. Unable to formally assess goal achievement due to non-compli ance with therapy plan of care. Reason for Discontinuation of Care: Patient has not returned to therapy or scheduled additional follow-up appointments. Maricel Allen, PT cnco on 2019-04-21 CNCO Letter Text [facility] ([id number]) obsolete on 2019-04 OBSOLETE Refill (INTMWS) Normal 04-13-2019 Gibran angela [facility] JOYCE PUENTE ([id number]) 1945 [facility] Date Time Provider Department ([id number]) 04/13/19 MELE KESSLER INTMWS During your visit today, we recorded the following informati on about you: Kaylen Reyes 04/13/2019 4:58 PM Signed Patient has been identified by name and date of : Yes Pending Prescriptions Disp Refills GLYBURIDE 5 MG TABLET Sig: Take 0.5 tablets by mouth once daily. JIMMY: No RX INSTRUCTIONS: Patient aware RX will be sent to pharmacy. No need to notify patient. Kaylen Mike LPN 04/13/2019 5:03 PM Signed Patient has been identified by name and date of : Yes Patient phones for refill(s): Pending Prescriptions Disp Refills GLYBURIDE 5 MG TABLET Sig: Take 0.5 tablets by mouth once daily. JIMMY: No Date of last office visit in primary care: 01/11/2019 6 month follow-up scheduled: 05/30/2019 Velvet Mike LPN Allergies As of Date: 04/13/2019 (No Known Allergies) Date Reviewed: 01/11/2019 Reviewed by: Mary Aguilar - Fully Assessed Reason for Visit: Refill Request [94] Order(s):glyBURIDE (DIABETA) 2.5 mg tabletTake 1 tablet by m outh once daily.Disp: 90 tabletRfl: 1 Prescriptions as of 04/13/2019 Sig: GLYBURIDE 2.5 MG TABLET Take 1 tablet by mouth once d* TAMSULOSIN 0.4 MG CAPSULE Take 1 capsule by mouth once * METFORMIN 500 MG TABLET Take 2 tablets by mouth twice* SIMVASTATIN 40 MG TABLET Take 1 tablet by mouth daily * FINASTERIDE 5 MG TABLET Take 1 tablet by mouth once d* MAGNESIUM HYDROXIDE 400 MG/5 * Take 15 mL by mouth once malka * DOCUSATE SODIUM 100 MG CAPSULE Take 1 capsule by mouth twice * BLOOD SUGAR DIAGNOSTIC STRIPS Test blood sugar(s) 2 times * LANCETS 30 GAUGE Test blood sugar(s) 2 times * BLOOD-GLUCOSE METER KIT Glucose Meter of Choice - Kit. BLOOD GLUCOSE CONTROL, NORMAL* Test controls as needed. CLOPIDOGREL 75 MG TABLET Take 1 tablet by mouth once d* ASPIRIN 81 MG TABLET,DELAYED * Take 1 tablet by mouth once d * Problem List As Of Date 04/13/2019 Noted Resolved Umbilical hernia without mention of obstruction*08/01/2006 0 01/18/2014 BPH with obstruction/lower urinary tract sympto*02/16/2009 Diabetes Mellitus [E11.9] 03/22/2009 06/07/2014 Mixed Hyperlipidemia [E78.2] 03/22/2009 Elevated PSA [R97.20] 03/23/2009 Gross hematuria [R31.0] 12/28/2009 04/01/2013 Other calculus in bladder [N21.0] 12/28/2009 04/01/2013 Screening for other and unspecified genitourina*04/21/2011 1 06/01/2012 Other specified disorders of bladder [N32.89] 07/04/201106/2012 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 Medications Discontinued During This Encounter glyBURIDE (DIABETA) 5 mg tablet 04/04/2019 04/14/2019 Class: Med Update Route: ORAL Sig: Take 0.5 tablets by mouth once daily. Disc: Reason for discontinue is not on file. Encounter Status:Closed by GAVI CARSON CNP on 04/14/19 office visit on 12-03-24 Dietary management yes Invalid Interpretatio n 10-23-2016 - [facility] education, guidance, Code 7 Group ([id number]) and counseling (procedure) Documentation of Done Invalid Interpretation 10-23-2016 - [facility] current medications Code 10-23-2016 Group ([id number]) (procedure) Fall risk assessment No Invalid Interpretat ion 10-23-2016 - [facility] Code 10-23-2016 Group (44 [id number]) HbA1c 6.4 % Invalid Interpretation 017 - [facility] Code 10-23-2016 Group (44 [id number]) Protein mass conc Done 10-23-2016 - [facility] 10-23-2016 Group ([id number]) replaced document: midmark ecg observati ons on 2016-08-01 EKG QRS axis 43 deg Invalid 08-01-2016 - [facility] Interpretation 08-01-2016 [facility] t [facility] Code ([id number]) electrocardiogram Sinus Rhythm - Invalid 017 - [facility] interpretation occasional PAC Interpretation 08-01 [facility] Group # PACs = Code (67184) 1.-RSR(V1) -nondiagnostic . PROBABLY NORMAL GE use only - for 413 ms Invalid 08-01-2016 - [facility] Link[employer] import when Interpretation Heart Group terms are not Code (46218 ) otherwise specified Interpretation Sinus Rhythm - Invalid 08-01-2016 - [facility] occasional PAC Interpretation 08-01-2016 Heart Group # PACs = Code (67285) 1.-RSR(V1) -nondiagnostic . PROBABLY NORMAL P [place] 21 deg Invalid 08-01-2016 - [facility] Interpretation 08-01-2016 Hear t Group Code (46313) P wave axis, 21 deg Invalid 08-01-2016 - [facility] electrocardiogram Interpretation 017 [facility] Code (48303) [place] Interval 174 ms Invalid 08-01-2016 - [place] Interpretation 08-01-2016 [facility] Code (62370) WA interval, 174 ms Invalid 08-01-2016 - [facility] electrocardiogram Interpretation 017 [facility] Code (13795) Pulse (Heart Rate) 71 BPM /min Invalid 08-01-2016 - [facility] Interpretation 08-01-2016 [facility] Code (36774) QRS axis, 43 deg Invalid 08-01-2016 - [facility] electrocardiogram Interpretation 017 [facility] Code (22308) QRS Duration 86 ms Invalid 08-01-2016 - [facility] Interpretation 08-01-2016 [facility] Code (72021) QRS duration, 86 ms Invalid 08-01-2016 - [place] [facility] electrocardiogram Interpretation 017 [facility] Code (65886) QT Interval new path ms Invalid 08-01-2016 - [facility] [facility] Interpretation 08-01-2016 [facility] t [facility] Code (82266) QT interval, new path ms Invalid 08-01-2016 - [facility] electrocardiogram Interpretation 017 [facility] Code (18459) QTc [place] 413 ms Invalid 08-01-2016 - [place] Interpretation 08-01-2016 [facility] Code (01944) T [place] 43 deg Invalid 08-01-2016 - [facility] Interpretation 08-01-2016 Hear t Group Code (80632) T wave axis, 43 deg Invalid 08-01-2016 - [facility] electrocardiogram Interpretation 017 [facility] Code (03041) office visit: ceg o n 2016-08-01 Documentation of Done Invalid Interpretation 08-01-2016 - [facility] current medications Code 08-01-2016 Group ([id number]) (procedure) Fall risk assessment No Invalid Interpretat ion 08-01-2016 - [facility] Code 08-01-2016 Group (44 691) Protein mass conc Done 08-01-2016 - [facility] 08-01-2016 Group (44 691) lab report: basic metabolic profile (bmp ) on 2016-08-01 Anion gap 8 5-15 mmol/L Invalid 08-01-2016 - [facility] Interpretation Code 08-01-2016 Heart Group ([id number]) Anion gap molar 8 5-15 mmol/L 08-01-2016 - [place] conc 08-01-2016 [facility] up (21340) BUN/Creatinine 19.8 RATIO 10-20 Invalid 08-01-2016 - [place] Ratio Interpretation Code 08-01-2016 Heart Group (66889) Calcium 9.0 8.5-10.1 mg/dL Invalid 08-01-2016 - [facility] Interpretation Code 08-01-2016 Heart Group (23720) Chloride 104 98-107 mmol/L Invalid 08-01-2016 - [facility] Interpretation Code 08-01-2016 Heart Group ([id number]) CO2 27.0 21.0-32.0 mmol/L Invalid 08-01-2016 - [facility] Interpretation Code 08-01-2016 Heart Group (02269) CO2 ppres 27.0 21.0-32.0 mmol/L 08-01-2016 - [facility] (BldV) 08-01-2016 [facility] (03632) Creatinine 1.01 0.70-1.30 mg/dL Invalid 08-01-2016 - [place] Interpretation Code 08-01-2016 [facility] Group (77726) eGFR 94 >60 mL/min Invalid 08-01-2016 - [facility] (non-black) Interpretation Code 08-02-19 17 Heart Group (26094) eGFR 78 >60 mL/min Invalid 08-01-2016 - [facility] (non-black) Interpretation Code 08-02-19 17 Heart Group (86103) EST GFR - AA 94 >60 mL/min 08-01-2016 - [facility] 08-01-2016 [facility] (67857) Glucose 130 70-110 mg/dL High 08-01-2016 - [facility] 08-01-2016 [facility] (91334) Glucose mass 130 70-110 mg/dL High 08-01-2016 - [facility] conc 08-01-2016 [facility] (57037) Potassium 4.3 3.5-5.1 mmol/L Invalid 08-01-2016 - [facility] Interpretation Code 08-01-2016 Heart Group (77472) Sodium 139 136-145 mmol/L Invalid 08-01-2016 - [facility] Interpretation Code 08-01-2016 Heart Group (02736) Urea nitrogen 20 7-18 mg/dL High 08-01-2016 - [place] [facility] 08-01-2016 [facility] (21000) clinical lists update: preload on 2016-07-25 Left ventricular 60 % Invalid Interpretation 07-25-2016 - [facility] Ejection fraction Code 07-25-2016 G roup (61662) office visit on 201 11-06-29 Tobacco smoking Never smoker 01-29-2016 - [facility] status NHIS 01-29-2016 Group ( 28826) Tobacco use Never smoker Invalid Interpretation - [facility] CPHS Code 01-29-2016 Group (44 921) office visit on 201 10-02-13 cardiac risk group C Invalid Interpretatio n 09-12-2014 - [facility] Code 09-12-2014 Group (44 121) Dietary management yes Invalid Interpretatio n 09-12-2014 - [facility] education, guidance, Code 5 Group (67046) and counseling (procedure) General cardiovascular N/A Invalid Interpret ation 09-12-2014 - [facility] disease 10Y risk [#] Code 5 Group (65834) [place] lab report: prothrombin time w/inr on 2014-09-12 Coagulation 12.8 SECONDS 11.7-14.9 Invalid 09-12-2014 - [place] tissue factor Interpretation 09-12-2014 Heart Group induced in Code (59108) platelet poor plasma INR Coag RelTime 1.0 {INR Invalid 09-12-2014 - [facility] (PPP) } Interpretation 09-12-2014 Hear t [facility] Code (67003) INR in blood by 1.0 {INR Invalid 09-12-2014 - [place] coagulation } Interpretation 09-12-2014 He art Group Code (57842) lab report: cbc-complete blood cnt no di ff on 2014-09-12 Erythrocytes 4.85 4.6-6.2 10*6/uL Invalid 09-12-2014 - [facility] (RBC) Interpretation 09-12-2014 Hear t Code Group (71410) Hematocrit (HCT) 42.0 40-54 % Invalid 09-12-2014 - [facility] Interpretation 09-12-2014 Hear t Code Group ([id number]) Hematocrit 42.0 40-54 % 09-12-2014 - [place] Volume Fraction 09-12-2014 Hea rt (Bld) Group (71358) Hemoglobin (HGB) 13.9 13.0-16.5 g/dL Invalid 09-12-2014 - [facility] Interpretation 09-12-2014 Hear t Code Group (61069) MCH 28.7 27.0-32.0 pg Invalid 09-12-2014 - [facility] Interpretation 09-12-2014 Hear t Code Group (59394) MCH Entitic mass 28.7 27.0-32.0 pg 09-12-2014 - [facility] (RBC) 09-12-2014 [facility] Group (39823) MCHC 33.1 32-36 Invalid 09-12-2014 - [facility] G/GL Interpretation 09-12-2014 Hear t Code Group (63956) MCHC mass conc 33.1 32-36 09-12-2014 - [place] (RBC) G/GL 09-12-2014 Heart Group (46240) MCV 86.6 80-94 fL Invalid 09-12-2014 - [facility] Interpretation 09-12-2014 Hear t Code Group (14742) MCV Entitic 86.6 80-94 fL 09-12-2014 - [place] volume (RBC) 09-12-2014 Heart Group (27499) Platelet mean 8.8 6.2-12.0 fL 09-12-2014 - [place] [facility] volume Entitic 09-12-2014 Hear t volume (Bld) Group (99362) Platelets 207 150-450 10*3/mm3 Invalid 09-12-2014 - [facility] Interpretation 09-12-2014 Hear t Code Group (75874) Platelets #/vol 207 150-450 10*3/mm3 09-12-2014 - [place] (Bld) 09-12-2014 [facility] (03566) PMV by 8.8 6.2-12.0 fL Invalid 09-12-2014 - [facility] [place] Interpretation 09-12-2014 Hea rt Code Group (47385) RBC #/vol (Bld) 4.85 4.6-6.2 10*6/uL 09-12-2014 - [facility] 09-12-2014 [facility] (30793) WBC #/vol (Bld) 4.9 4.4-11.0 10*9/L 09-12-2014 - [place] [facility] 09-12-2014 [facility] (98446) WBC (Leukocytes) 4.9 4.4-11.0 10*9/L Invalid 09-12-2014 - [facility] Interpretation 09-12-2014 Hear t Code Group ([id number]) replaced document: midmark ecg observati ons on 2013-10-13 Pulse (Heart 424 ms Invalid Interpretation 09-29 - Heart Rate) Code 10-13-2013 Group (38 873) lab report: liver o n 2013-10-13 Alanine aminotransferase 30 12-78 U/L Normal 10-13 - [facility] (ALT) 10-13-2013 Group (44 451) Albumin 4.0 3.4-5.0 g/dL Normal 10-13-2013 - [facility] 10-13-2013 Group (44 031) Aspartate 14 15-37 U/L Low 10-13-2013 Heart aminotransferase (AST) 014 Group ([id number]) Bilirubin (direct) 0.07 0.00-0.30 mg/dL Normal 10-13-2013 - [facility] 10-13-2013 Group (44 381) Bilirubin (total) 0.40 0.00-1.00 mg/dL Normal 10-13-2013 - [facility] 10-13-2013 Group (44 751) Protein 7.7 6.4-8.2 g/dL Normal 10-13-2013 - [facility] 10-13-2013 Group (44 731) lab report: lipid o n 2013-10-13 Cholesterol 140 200 mg/dL Normal 10-13-2013 - [facility] 10-13-2013 Group (44 691) HDL Cholesterol 26 mg/dL Low 10-13-2013 - [facility] 10-13-2013 Group (44 691) LDL Cholesterol 83 0-130 mg/dL Normal 10-13-2013 - [facility] 10-13-2013 Group (44 691) Lipoprotein.pre-beta 31 5-40 mg/dL Normal 4 - [facility] mass conc 10-13-2013 Group (44 691) Triglyceride 156 0-199 mg/dL Normal 10-13-2013 - [facility] 10-13-2013 Group (44 691) very low density 31 5-40 mg/dL Normal 10-13-2013 - [facility] lipoproteins 10-13-2013 Group (36818) Vital Signs Vital Sign Description Value / Unit Date Location The following section is limited to 5 en tries per type and includes entries from the following time range: 20160801 - [id number] 5. BMI (Body Mass Index) 31.6 kg/m2 10-23-2016 - 10-23-2016 [facility] ([id number]) BMI (Body Mass Index) 31.45 kg/m2 08-01-2016 - 08-01-2016 [facility] ([id number]) BP Diastolic 70 mm[Hg] 10-23-2016 - 10-23-2016 [facility] (85774) BP Diastolic 70 mm[Hg] 08-01-2016 - 08-01-2016 [facility] (69053) BP Diastolic 74 mm[Hg] 01-29-2016 - 01-29-2016 [facility] ([id number]) BP Diastolic 54 mm[Hg] 10-17-2014 - 10-17-2014 [facility] (31470) BP Systolic 118 mm[Hg] 10-23-2016 - 10-23-2016 [facility] ([id number]) BP Systolic 110 mm[Hg] 08-01-2016 - 08-01-2016 [facility] ([id number]) BP Systolic 110 mm[Hg] 01-29-2016 - 01-29-2016 [facility] ([id number]) BP Systolic 80 mm[Hg] 10-17-2014 - 10-17-2014 [facility] ([id number]) BSA (Body Surface Area) 2.1 m2 01-29-2016 - 01-29-2016 [facility] (77444) Heart rate 71 /min 08-01-2016 - 08-01-2016 [facility] (40555) Heart rate 424 ms 10-13-2013 - 10-13-2013 [facility] ([id number]) Height 175.26 cm 10-23-2016 - 10-23-2016 [facility] (87466) Height 175.26 cm 08-01-2016 - 08-01-2016 [facility] ([id number]) Pulse (Heart Rate) 68 /min 10-23-2016 - 10-23-2016 [facility] (38053) Pulse (Heart Rate) 66 /min 08-01-2016 - 08-01-2016 [facility] (35151) Pulse (Heart Rate) 78 /min 01-29-2016 - 01-29-2016 [facility] ([id number]) Respiratory Rate 18 /min 10-23-2016 - 10-23-2016 [facility] (44837) Respiratory Rate 16 /min 08-01-2016 - 08-01-2016 [facility] (44977) Weight 97.07 kg 10-23-2016 - 10-23-2016 [facility] (39649) Weight 96.62 kg 08-01-2016 - 08-01-2016 [facility] ([id number]) Encounters Date Type Reason Provider Location 02-15-2020 - Patient encounter External Provider [facility] 02-15-2020 procedure 09-16-2017 - Patient encounter Mele Kessler [facility] 09-16-2017 procedure [facility] Comment: Opened In Error 10-21-2017 - 10-21-2017 Refill [facility] Comment: Refill Request; Refill Reque st; Refill Request 02-15-2020 Results Only External Provider External-N [facility] 03-08-2020 - Telephone encounter Mele Kessler [facility] 03-08-2020 Comment: Patient Update 09-13-2019 - 09-13-2019 Telephone encounter Mele barajas [facility] Comment: Insurance Authorization (serge gil) Procedures Procedure Name Date Provider Location EXTERNAL PROCEDURE 02-15-2020 External Provider Kiran spear ([id number]) Interrogation eval remote 04-06-2017 - [facility] </90 d 1/2/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 assistant lead pm 04-10-2017 ONLBERTO Patterson ([id number]) Interrogation eval remote 12-31-2016 - Maty Malloy [facility] </90 d 1/2/teacher assistant lead pm 12-31-2016 NOLBERTO Patterson ([id number]) Pm device interrogate 12-31-2016 - Maty Mellissa [facility] remote 12-31-2016 NOLBERTO Patterson ([id number]) DJN 10-23-2016 - MD [facility] 10-23-2016 ([id number]) Follow Up Appt 6 months 10-23-2016 - MD Viry [facility] 10-23-2016 ([id number]) Stress Echocardiogram 10-23-2016 - [facility] (treadmill) 12-29-2016 ([id number]) Dietary management 10-23-2016 - [facility] education, guidance, and 10-23-2016 ([id number]) counseling DJN 10-23-2016 - MD [facility] 10-23-2016 ([id number]) Follow Up Appt 6 months 10-23-2016 - Adam Kim MD [facility] 10-23-2016 ([id number]) Stress Echocardiogram 10-23-2016 - Adam Kim MD [facility] (treadmill) 12-29-2016 ([id number]) Follow Up Appt 3 months 09-29-2016 - Adam Kim [facility] 10-14-2016 ([id number]) Interrogation eval remote 09-29-2016 - Adam Kim MD [facility] </90 d 1/2/teacher assistant lead pm 2016 ([id number]) Pacer Clinic 09-29-2016 - Adam Kim MD [facility] 10-14-2016 ([id number]) Follow Up Appt 3 months 09-29-2016 - Adam Kim MD [facility] 10-14-2016 ([id number]) Pacer Clinic 09-29-2016 - MD [facility] 10-14-2016 ([id number]) Pm device interrogate 09-29-2016 - Adam Kim MD [facility] remote 2016 ([id number]) *BMP 08-01-2016 - Marybel Gonzalez 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 [facility] 08-01-2016 ([id number]) Follow Up Appt Other 08-01-2016 - Marybel Gonzalez 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 [facility] 08-01-2016 ([id number]) *BMP 08-01-2016 - Marybel Gonzalez 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 [facility] 08-01-2016 ([id number]) Follow Up Appt Other 08-01-2016 - Marybel Gonzalez 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 [facility] 08-01-2016 ([id number]) Follow Up Appt 3 months 07-01-2016 - Maty Malloy [facility] 07-24-2016 NOLBERTO Patterson ([id number]) Interrogation eval remote 07-01-2016 - [facility] </90 d 1/2/teacher assistant lead pm 07-02-2016 NOLBERTO Patterson ([id number]) Pacer Clinic 07-01-2016 - Maty Malloy [facility] 07-24-2016 NOLEBRTO Patterson ([id number]) Follow Up Appt 3 months 07-01-2016 - [facility] 07-24-2016 NOLBERTO Patterson ([id number]) Pacer Clinic 07-01-2016 - [facility] 07-24-2016 NOLBERTO Patterson ([id number]) Pm device interrogate 07-01-2016 - [facility] remote 07-02-2016 NOLBERTO Patterson ([id number]) Follow Up Appt 3 months 04-01-2016 - [facility] 07-24-2016 NOLBERTO Patterson ([id number]) Interrogation eval remote 04-01-2016 - [facility] </90 d 1/2/teacher assistant lead pm 04-02-2016 NOLBERTO Patterson ([id number]) Pacer Clinic 04-01-2016 - [facility] 07-24-2016 NOLBERTO Patterson ([id number]) Follow Up Appt 3 months 04-01-2016 - [facility] 07-24-2016 NOLBERTO Patterson ([id number]) Pacer Clinic 04-01-2016 - [facility] 07-24-2016 NOLBERTO Patterson ([id number]) Pm device interrogate 04-01-2016 - [facility] remote 04-02-2016 NOLBERTO Patterson ([id number]) [facility] 03-11-2016 - [facility] 03-11-2016 ([id number]) DJN 01-29-2016 - Adam Kim MD [facility] 01-29-2016 ([id number]) Follow Up Appt 6 months 01-29-2016 - Aadm Kim MD [facility] 01-29-2016 ([id number]) DJN 01-29-2016 - Adam Kim MD [facility] 01-29-2016 ([id number]) Follow Up Appt 6 months 01-29-2016 - Adam Kim MD [facility] 01-29-2016 ([id number]) Follow Up Appt 3 months 01-24-2016 - [facility] 07-24-2016 NOLBERTO Patterson ([id number]) Pacer Clinic 01-24-2016 - Maty Mellissa [facility] 07-24-2016 NOLBERTO Patterson ([id number]) Program eval implantable in 01-24-2016 - [facility] persn dual ld pacer 01-24-2016 NOLBERTO Patterson ([id number]) Follow Up Appt 3 months 01-24-2016 - [facility] 07-24-2016 NOLBERTO Patterson ([id number]) Pacer Clinic 01-24-2016 - [facility] 07-24-2016 NOLBERTO Patterson ([id number]) Pm device progr eval, dual 01-24-2016 - [facility] 01-24-2016 NOLBERTO Patterson ([id number]) Follow Up Appt 1 month 12-28-2015 - [facility] 07-24-2016 NOLBERTO Patterson ([id number]) Nurse, Teaching, Wound 12-28-2015 - [facility] Check (no charge) 12-28-2015 NOLBERTO Patterson ([id number]) Pacer Clinic 12-28-2015 - Maty Malloy [facility] 07-24-2016 NOLBERTO Patterson ([id number]) Follow Up Appt 1 month 12-28-2015 - [facility] 07-24-2016 NOLBERTO Patterson ([id number]) Nurse, Teaching, Wound 12-28-2015 - Maty Malloy [facility] Check (no charge) 12-28-2015 NOLBERTO Patterson ([id number]) Pacer Clinic 12-28-2015 - Maty Malloy [facility] 07-24-2016 NOLBERTO Patterson ([id number]) Ecg routine ecg w/least 12 02-07-2015 - Adam Kim MD [place] [facility] lds w/i&r 03-06-2015 ([id number]) Follow Up BP Check 02-07-2015 - Adam Kim MD [facility] 02-07-2015 ([id number]) Electrocardiogram, complete 02-07-2015 - Adam Kim MD [facility] 03-06-2015 ([id number]) Follow Up BP Check 02-07-2015 - Adam Kim MD [facility] 02-07-2015 ([id number]) Ecg routine ecg w/least 12 01-24-2015 - Adam Kim MD [place] [facility] lds w/i&r 01-24-2015 ([id number]) Electrocardiogram, complete 01-24-2015 - Adam Kim MD [facility] 01-24-2015 ([id number]) DJN 10-17-2014 - Adam Kim MD [facility] 03-06-2015 ([id number]) Follow Up Appt 6 months 10-17-2014 - Adam Kim [facility] 03-06-2015 ([id number]) Follow Up BP Check 10-17-2014 - MD [facility] 10-31-2014 ([id number]) DJN 10-17-2014 - Adam Kim MD [facility] 03-06-2015 ([id number]) Follow Up Appt 6 months 10-17-2014 - Adam Kim [facility] 03-06-2015 ([id number]) Follow Up BP Check 10-17-2014 - MD [facility] 10-31-2014 ([id number]) Nurse, Teaching, Wound 09-22-2014 - Adam Kim MD [facility] Check (no charge) 09-22-2014 ([id number]) Nurse, Teaching, Wound 09-22-2014 - [facility] Check (no charge) 09-22-2014 ([id number]) *BMP 09-14-2014 - Adam Kim MD [facility] 09-22-2014 ([id number]) *BMP 09-14-2014 - MD [facility] 09-22-2014 ([id number]) *BMP 09-12-2014 - MD [facility] 09-12-2014 ([id number]) aPTT in Platelet poor 09-12-2014 - [facility] plasma by Coagulation assay 09-12-2014 ([id number]) CBC W Auto Differential 09-12-2014 - Adam Kim MD [facility] panel - Blood 09-12-2014 ([id number]) DJN 09-12-2014 - Adam Kim MD [facility] 09-12-2014 ([id number]) Ecg routine ecg w/least 12 09-12-2014 - MD [facility] lds w/i&r 09-12-2014 ([id number]) Follow Up Appt 6 months 09-12-2014 - Adam Kim MD [facility] 10-05-2014 ([id number]) INR in Platelet poor plasma 09-12-2014 - Adam Kim MD [facility] by Coagulation assay 09-12-2014 ([id number]) Left Heart Cath 09-12-2014 - MD [facility] 09-13-2014 ([id number]) Dietary management 09-12-2014 - [facility] education, guidance, and 09-12-2014 ([id number]) counseling *BMP 09-12-2014 - MD [facility] 09-12-2014 ([id number]) aPTT 09-12-2014 - Adam Kim MD [facility] 09-12-2014 ([id number]) CBC W Auto Differential 09-12-2014 - Adam Kim [facility] panel - Blood 09-12-2014 ([id number]) Coagulation factor 09-12-2014 - MD [facility] induced.INR assay in 09-12-2014 ([id number]) platelet poor plasma DJN 09-12-2014 - Adam Kim MD [facility] 09-12-2014 ([id number]) Electrocardiogram, complete 09-12-2014 - Adam Kim MD [facility] 09-12-2014 ([id number]) Follow Up Appt 6 months 09-12-2014 - Adam Kim [facility] 10-05-2014 ([id number]) Left Heart Cath 09-12-2014 - Adam Kim MD [facility] 09-13-2014 ([id number]) Nurse, Teaching, Wound 10-21-2013 - [facility] Check (no charge) 10-21-2013 ([id number]) Nurse, Teaching, Wound 10-21-2013 - [facility] Check (no charge) 10-21-2013 ([id number]) Percutaneous transluminal 10-21-2013 [facility] coronary angioplasty ([id number]) Placement of stent in 10-21-2013 [facility] coronary artery ([id number]) *Hepatic Function Panel 10-17-2013 - Adam Kim MD [facility] 07-24-2016 ([id number]) Lipid 1996 panel - Serum or 10-17-2013 - Adam Kim MD [facility] Plasma 07-24-2016 ([id number]) *Hepatic Function Panel 10-17-2013 - Adam Kim MD [facility] 07-24-2016 ([id number]) Lipid panel [AGGREGATE] 10-17-2013 - Adam Kim MD [facility] 07-24-2016 ([id number]) *Hepatic Function Panel 10-13-2013 - Adam Kim MD [facility] 10-17-2013 ([id number]) Cardiac Rehab 10-13-2013 - Adam Kim MD [facility] 01-05-2014 ([id number]) DJN 10-13-2013 - Adam Kim MD [facility] 10-13-2013 ([id number]) Follow Up Appt 1 year 10-13-2013 - Adam Kim MD [facility] 10-13-2013 ([id number]) *Hepatic Function Panel 10-13-2013 - Adam Kim MD [facility] 10-17-2013 ([id number]) Cardiac Rehab 10-13-2013 - Adam Kim MD [facility] 01-05-2014 ([id number]) DJN 10-13-2013 - Adam Kim MD [facility] 10-13-2013 ([id number]) Follow Up Appt 1 year 10-13-2013 - Adam Kim MD [facility] 10-13-2013 ([id number]) Plan of Treatment Plan Description Date Location COLONOSCOPY COLONOSCOPY 03-11-2026 - [facility] 03-11-2026 ([id number]) DIABETIC FOOT EXAM DIABETIC FOOT EXAM 07-01-2020 - [facility] 07-01-2020 ([id number]) ANNUAL PCP TEAM CHRONIC ANNUAL PCP TEAM CHRONIC 07-01-2020 - [facility] DISEASE VISIT DISEASE VISIT 07-01-2020 ([id number]) URINE ALBUMIN:CREATININE URINE ALBUMIN:CREATININE 06-28-2020 - [facility] RATIO RATIO 06-28-2020 ([id number]) LDL CHOLESTEROL LDL CHOLESTEROL 06-28-2020 - [facility] 06-28-2020 ([id number]) HBA1C HBA1C 06-23-2020 - [facility] 06-23-2020 ([id number]) DILATED RETINAL EXAM DILATED RETINAL EXAM 06-23-2020 - [facility] 06-23-2020 ([id number]) INFLUENZA (#1) INFLUENZA (#1) 2020 - [facility] 01-31-2020 ([id number]) Appointment Appointment 07-09-2017 - [facility] 07-09-2017 ([id number]) Appointment Appointment 05-04-2017 - [facility] 05-04-2017 ([id number]) Appointment Appointment 05-04-2017 - [facility] 05-04-2017 ([id number]) Appointment Appointment 04-06-2017 - [facility] 04-06-2017 ([id number]) Follow Up Appt 3 months Follow Up Appt 3 months 04-06-2017 - [facility] 04-10-2017 ([id number]) Pacer Clinic Pac[facility] 04-06-2017 - [facility] 04-10-2017 ([id number]) Follow Up Appt 3 months Follow Up Appt 3 months 12-31-2016 - [facility] 12-31-2016 ([id number]) Pacer Clinic Pacer Clinic 12-31-2016 - [facility] 12-31-2016 ([id number]) Appointment Appointment 12-31-2016 - [facility] 12-31-2016 ([id number]) Appointment Appointment 12-31-2016 - [facility] 12-31-2016 ([id number]) Follow Up Appt 3 months Follow Up Appt 3 months 12-31-2016 - [facility] 12-31-2016 ([id number]) Pacer Clinic Pacer Clinic 12-31-2016 - [facility] 12-31-2016 ([id number]) DOC ROACH 10-23-2016 - [facility] 10-23-2016 ([id number]) Follow Up Appt 6 months Follow Up Appt 6 months 10-23-2016 - [facility] 10-23-2016 ([id number]) Stress Echocardiogram Stress Echocardiogram 10-23-2016 - [facility] (treadmill) (treadmill) 10-23-2016 ([id number]) Appointment Appointment 10-23-2016 - [facility] 10-23-2016 ([id number]) Appointment Appointment 10-23-2016 - [facility] 10-23-2016 ([id number]) DOC ROACH 10-23-2016 - [facility] 10-23-2016 ([id number]) Follow Up Appt 6 months Follow Up Appt 6 months 10-23-2016 - [facility] 10-23-2016 ([id number]) Stress Echocardiogram Stress Echocardiogram 10-23-2016 - [facility] (treadmill) (treadmill) 10-23-2016 ([id number]) Follow Up Appt 3 months Follow Up Appt 3 months 09-29-2016 - [facility] 10-14-2016 ([id number]) Pacer Clinic Pacer Clinic 09-29-2016 - [facility] 10-14-2016 ([id number]) Follow Up Appt 3 months Follow Up Appt 3 months 09-29-2016 - [facility] 10-14-2016 ([id number]) Pacer Clinic Pacer Clinic 09-29-2016 - [facility] 10-14-2016 ([id number]) *BMP *BMP 08-01-2016 - [facility] 08-01-2016 ([id number]) Follow Up Appt Other Follow Up Appt Other 08-01-2016 - [facility] 08-01-2016 ([id number]) *BMP *BMP 08-01-2016 - [facility] 08-01-2016 ([id number]) Follow Up Appt Other Follow Up Appt Other 08-01-2016 - [facility] 08-01-2016 ([id number]) Follow Up Appt 3 months Follow Up Appt 3 months 07-01-2016 - [facility] 07-24-2016 ([id number]) Pacer Clinic Pacer Clinic 07-01-2016 - [facility] 07-24-2016 ([id number]) Follow Up Appt 3 months Follow Up Appt 3 months 07-01-2016 - [facility] 07-24-2016 ([id number]) Pacer Clinic Pacer Clinic 07-01-2016 - [facility] 07-24-2016 ([id number]) Follow Up Appt 3 months Follow Up Appt 3 months 04-01-2016 - [facility] 07-24-2016 ([id number]) Pacer Clinic Pacer Clinic 04-01-2016 - [facility] 07-24-2016 ([id number]) Follow Up Appt 3 months Follow Up Appt 3 months 04-01-2016 - [facility] 07-24-2016 ([id number]) Pacer Clinic Pacer Clinic 04-01-2016 - [facility] 07-24-2016 ([id number]) DJN KODAKN 01-29-2016 - [facility] 01-29-2016 ([id number]) Follow Up Appt 6 months Follow Up Appt 6 months 01-29-2016 - [facility] 01-29-2016 ([id number]) DJN DJN 01-29-2016 - [facility] 01-29-2016 ([id number]) Follow Up Appt 6 months Follow Up Appt 6 months 01-29-2016 - [facility] 01-29-2016 ([id number]) Follow Up Appt 3 months Follow Up Appt 3 months 01-24-2016 - [facility] 07-24-2016 ([id number]) Pacer Clinic Pacer Clinic 01-24-2016 - [facility] 07-24-2016 ([id number]) Follow Up Appt 3 months Follow Up Appt 3 months 01-24-2016 - [facility] 07-24-2016 ([id number]) Pacer Clinic Pacer Clinic 01-24-2016 - [facility] 07-24-2016 ([id number]) Follow Up Appt 1 month Follow Up Appt 1 month 12-28-2015 - [facility] 07-24-2016 ([id number]) Pacer Clinic Pacer Clinic 12-28-2015 - [facility] 07-24-2016 ([id number]) Follow Up Appt 1 month Follow Up Appt 1 month 12-28-2015 - [facility] 07-24-2016 ([id number]) Pacer Clinic Pacer Clinic 12-28-2015 - [facility] 07-24-2016 ([id number]) EKG (In office) EKG (In office) 02-07-2015 - [facility] 03-06-2015 ([id number]) Follow Up BP Check Follow Up BP Check 02-07-2015 - [facility] 02-07-2015 ([id number]) EKG (In office) EKG (In office) 02-07-2015 - [facility] 03-06-2015 ([id number]) Follow Up BP Check Follow Up BP Check 02-07-2015 - [facility] 02-07-2015 ([id number]) EKG (In office) EKG (In office) 01-24-2015 - [facility] 01-24-2015 ([id number]) EKG (In office) EKG (In office) 01-24-2015 - [facility] 01-24-2015 ([id number]) [facility] 10-17-2014 - [facility] 03-06-2015 ([id number]) Follow Up Appt 6 months Follow Up Appt 6 months 10-17-2014 - [facility] 03-06-2015 ([id number]) Follow Up BP Check Follow Up BP Check 10-17-2014 - [facility] 10-31-2014 ([id number]) [facility] 10-17-2014 - [facility] 03-06-2015 ([id number]) Follow Up Appt 6 months Follow Up Appt 6 months 10-17-2014 - [facility] 03-06-2015 ([id number]) Follow Up BP Check Follow Up BP Check 10-17-2014 - [facility] 10-31-2014 ([id number]) *BMP *BMP 09-14-2014 - [facility] 09-22-2014 ([id number]) *BMP *BMP 09-14-2014 - [facility] 09-22-2014 ([id number]) *BMP *BMP 09-12-2014 - [facility] 09-12-2014 ([id number]) *PTT-Partial *PTT-Partial 09-12-2014 - [facility] Thromboplastin Time Thromboplastin Time 09-12-2014 ([id number]) *CBC without Diff *CBC without Diff 09-12-2014 - [facility] 09-12-2014 ([id number]) [facility] - [facility] 09-12-2014 ([id number]) EKG (In office) EKG (In office) 09-12-2014 - [facility] 09-12-2014 ([id number]) Follow Up Appt 6 months Follow Up Appt 6 months 09-12-2014 - [facility] 10-05-2014 ([id number]) *PT/INR *PT/INR 09-12-2014 - [facility] 09-12-2014 ([id number]) Left Heart Cath Left Heart Cath 09-12-2014 - [facility] 09-12-2014 ([id number]) *BMP *BMP 09-12-2014 - [facility] 09-12-2014 ([id number]) *PTT-Partial *PTT-Partial 09-12-2014 - [facility] Thromboplastin Time Thromboplastin Time 09-12-2014 ([id number]) *PTT-Partial *PTT-Partial 09-12-2014 - [facility] Thromboplastin Time Thromboplastin Time 09-12-2014 ([id number]) *CBC without Diff *CBC without Diff 09-12-2014 - [facility] 09-12-2014 ([id number]) *PT/INR *PT/INR 09-12-2014 - [facility] 09-12-2014 ([id number]) DJN DJN 09-12-2014 - [facility] 09-12-2014 ([id number]) EKG (In office) EKG (In office) 09-12-2014 - [facility] 09-12-2014 ([id number]) Follow Up Appt 6 months Follow Up Appt 6 months 09-12-2014 - [facility] 10-05-2014 ([id number]) Left Heart Cath Left Heart Cath 09-12-2014 - [facility] 09-12-2014 ([id number]) *Lipid Profile CC PCP *Lipid Profile CC PCP 12-30-2013 - [facility] 10-17-2013 ([id number]) *Lipid Profile CC PCP *Lipid Profile CC PCP 12-30-2013 - [facility] 10-17-2013 ([id number]) *Hepatic Function Panel *Hepatic Function Panel 10-17-2013 - [facility] 07-24-2016 ([id number]) *Lipid Profile CC PCP *Lipid Profile CC PCP 10-17-2013 - [facility] 07-24-2016 ([id number]) *Hepatic Function Panel *Hepatic Function Panel 10-17-2013 - [facility] 07-24-2016 ([id number]) *Lipid Profile CC PCP *Lipid Profile CC PCP 10-17-2013 - [facility] 07-24-2016 ([id number]) *Hepatic Function Panel *Hepatic Function Panel 10-13-2013 - [facility] 10-17-2013 ([id number]) Cardiac Rehab Cardiac Rehab 10-13-2013 - [facility] 10-13-2013 ([id number]) DJN DJN 10-13-2013 - [facility] 10-13-2013 ([id number]) Follow Up Appt 1 year Follow Up Appt 1 year 10-13-2013 - [facility] 10-13-2013 ([id number]) *Hepatic Function Panel *Hepatic Function Panel 10-13-2013 - [facility] 10-17-2013 ([id number]) Cardiac Rehab Cardiac Rehab 10-13-2013 - [facility] 10-13-2013 ([id number]) DJN DJN 10-13-2013 - [facility] 10-13-2013 ([id number]) Follow Up Appt 1 year Follow Up Appt 1 year 10-13-2013 - [facility] 10-13-2013 ([id number]) ADVANCE DIRECTIVE ADVANCE DIRECTIVE 10-01-2011 - [facility] DISCUSSION DISCUSSION 10-01-2011 ([id number]) SHINGRIX VACCINE (1 of 2) SHINGRIX VACCINE (1 of 2) 1996 - [facility] 1996 ([id number]) DTAP,TDAP,TD (1 - Tdap) DTAP,TDAP,TD (1 - Tdap) 1965 - [facility] 1965 ([id number]) Patient education CORONARY%20ANGIOPLASTY [facility] (00045) no information [facility] ([id number]) Immunizations Vaccine Notes Status Date Location Pneumococcal-13 Vac pneumococcal conjugate (completed) 04-25-2015 - [facility] Conjugate vaccine, 13 valent 04-25-2015 ([id number]) Pneumovax pneumococcal (completed) 01-18-2014 - [facility] polysaccharide vaccine, 01-18-2014 (441 95) 23 valent Payers Payer Name Policy Number Location MEDICARE [id number] [facility] (44 195) [employer] [id number] [facility] (44 195) UHC AARP MEDICARE [id number] [facility] (44 356) The following information is from the original human readable contentNo Payer Records Found Social History Type Social History Date Location Description Tobacco smoking status Never smoker 03-24-2017 - [facility] NHIS 01-11-2019 ([id number]) Tobacco use and Never used 03-24-2017 - [facility] exposure 01-11-2019 ([id number]) Alcohol intake Current non-drinker of 03-24-2017 - [facility] alcohol (finding) 01-11-2019 ([id number]) Sex Assigned At Not on file [facility] ([id number]) Exposure to SARS-CoV-2 Not sure [facility] (event) ([id number]) The following information is from the original human readable contentNo Social History Records Found Medical Equipment Equipment Code (if Equipment Original Equipment Procedure Code ( if Dates provided) Text (if provided) Identifier (if provided) provided) [facility] [id number] 05-03-2013 4.3x4.3cm Vntrl - [id number] Test blood 01-18-2020 sugar(s) 2 times daily. Dx: E11.9 . Insulin: No Test blood 01-18-2020 sugar(s) 2 times daily. Dx: E11.9 . Insulin: No Test blood 01-18-2020 sugar(s) 2 times daily. Dx: E11.9 . Insulin: No Test blood 01-18-2020 sugar(s) 2 times daily. Dx: E11.9 . Insulin: No History of Past Illness Problem Noted Date Resolved Date Weakness of both lower extremities 02/03/201907/01 Dysuria 07/08/2016 09/22/2016 Microscopic hematuria 07/08/2016 03/24/2017 Bloating 03/06/2016 09/22/2016 Blood in stool 02/04/2016 09/22/2016 Hip pain 08/15/2013 01/18/2014 DJD (degenerative joint disease) of hip 04/01/2013 01/18/2014 Other specified disorders of bladder 07/04/201106/2012 Screening for other and unspecified genitourinary condition 04/21/2011 04/01/2013 Gross hematuria 12/28/2009 04/01/2013 Other calculus in bladder 12/28/2009 04/01/2013 Diabetes Mellitus 03/22/2009 06/07/2014 Umbilical hernia without mention of obstruction or gangrene 08/01/2006 01/18/2014 Problem Noted Date Resolved Date Weakness of both lower extremities 02/03/201907/01 Dysuria 07/08/2016 09/22/2016 Microscopic hematuria 07/08/2016 03/24/2017 Bloating 03/06/2016 09/22/2016 Blood in stool 02/04/2016 09/22/2016 Hip pain 08/15/2013 01/18/2014 DJD (degenerative joint disease) of hip 04/01/2013 01/18/2014 Other specified disorders of bladder 07/04/201106/2012 Screening for other and unspecified genitourinary condition 04/21/2011 04/01/2013 Gross hematuria 12/28/2009 04/01/2013 Other calculus in bladder 12/28/2009 04/01/2013 Diabetes Mellitus 03/22/2009 06/07/2014 Umbilical hernia without mention of obstruction or gangrene 08/01/2006 01/18/2014 Problem Noted Date Resolved Date Weakness of both lower extremities 02/03/201907/01 Dysuria 07/08/2016 09/22/2016 Microscopic hematuria 07/08/2016 03/24/2017 Bloating 03/06/2016 09/22/2016 Blood in stool 02/04/2016 09/22/2016 Hip pain 08/15/2013 01/18/2014 DJD (degenerative joint disease) of hip 04/01/2013 01/18/2014 Other specified disorders of bladder 07/04/201106/2012 Screening for other and unspecified genitourinary condition 04/21/2011 04/01/2013 Gross hematuria 12/28/2009 04/01/2013 Other calculus in bladder 12/28/2009 04/01/2013 Diabetes Mellitus 03/22/2009 06/07/2014 Umbilical hernia without mention of obstruction or gangrene 08/01/2006 01/18/2014 Problem Noted Date Resolved Date Weakness of both lower extremities 02/03/201907/01 Dysuria 07/08/2016 09/22/2016 Microscopic hematuria 07/08/2016 03/24/2017 Bloating 03/06/2016 09/22/2016 Blood in stool 02/04/2016 09/22/2016 Hip pain 08/15/2013 01/18/2014 DJD (degenerative joint disease) of hip 04/01/2013 01/18/2014 Other specified disorders of bladder 07/04/201106/2012 Screening for other and unspecified genitourinary condition 04/21/2011 04/01/2013 Gross hematuria 12/28/2009 04/01/2013 Other calculus in bladder 12/28/2009 04/01/2013 Diabetes Mellitus 03/22/2009 06/07/2014 Umbilical hernia without mention of obstruction or gangrene 08/01/2006 01/18/2014 Problem Noted Date Resolved Date Weakness of both lower extremities 02/03/201907/01 Dysuria 07/08/2016 09/22/2016 Microscopic hematuria 07/08/2016 03/24/2017 Bloating 03/06/2016 09/22/2016 Blood in stool 02/04/2016 09/22/2016 Hip pain 08/15/2013 01/18/2014 DJD (degenerative joint disease) of hip 04/01/2013 01/18/2014 Other specified disorders of bladder 07/04/201106/2012 Screening for other and unspecified genitourinary condition 04/21/2011 04/01/2013 Gross hematuria 12/28/2009 04/01/2013 Other calculus in bladder 12/28/2009 04/01/2013 Diabetes Mellitus 03/22/2009 06/07/2014 Umbilical hernia without mention of obstruction or gangrene 08/01/2006 01/18/2014 Summary Purpose Family History No Family History Records Found Advance Directives No Advanced Directives Records Found Additional Source Comments FOR RECORDS PERTAINING TO PATIENTS WHO ARE OR HAVE BEEN ENROLLED IN A CHEMICAL DEPENDENCY/SUBSTANCE ABUSE PROGRAM, SOME INFORMATION MAY BE OMITTED. This clinical summary was aggregated from multiple sources. Caution should be exercised in using it in the provision of clinical care. This summary normalizes information from multiple sources, and as a consequence, information in this document may materially changethe coding, format and clinical context of patient data. In addition, data may be omittedin some cases. CLINICAL DECISIONS SHOULD BE BASED ON THE PRIMARY CLINICAL RECORDS. [facility] provides no warranty or guarantee of the accuracy or completeness of information in this document. UNRECOGNIZED CONTENT PROVIDED BELOW FOR UNRECOGNIZED SECTION Source Comments In the event this information is protected by the Federal Confidentiality of Alcohol and Drug Abuse Patient Records regulations: The Federal rules restrict any use of the information to criminally investigate or prosecute any alcohol or drug abuse patient.[facility] the event this information is protected by the Federal Confidentiality of Alcohol and Drug Abuse Patient Records regulations: The Federal rules restrict any use of the information to criminally investigate or prosecute any alcohol or drug abuse patient.[facility] Hospital[facility] the event this information is protected by the Federal Confidentiality of Alcohol and Drug Abuse Patient Records regulations: The Federal rules restrict any use of the information to criminally investigate or prosecute any alcohol or drug abuse patient.[facility] Hospital[facility] the event this information is protected by the Federal Confidentiality of Alcohol and Drug Abuse Patient Records regulations: The Federal rules restrict any use of the information to criminally investigate or prosecute any alcohol or drug abuse patient.[facility] Hospital[facility] the event this information is protected by the Federal Confidentiality of Alcohol and Drug Abuse Patient Records regulations: The Federal rules restrict any use of the information to criminally investigate or prosecute any alcohol or drug abuse patient.[facility] UNRECOGNIZED CONTENT PROVIDED BELOW FOR UNRECOGNIZED SECTION Reason for Visit Reason Onset Date Comments Refill Request Refill Request 01/24/2019 Refill Request 02/01/2020 Reason Onset Date Comments Opened In Error 09/16/2017 Reason Onset Date Comments Insurance Authorization 09/13/2019 glyburide Reason Comments Patient Update UNRECOGNIZED CONTENT PROVIDED BELOW FOR UNRECOGNIZED SECTION Miscellaneous Notes Telephone Encounter - Mele Kessler - 02/01/2020 5:15 PM EDTPlease instruct patient to do labs prior. elephone Encounter - Edna Herman LPN - 02/01/2020 10:[facility] pt has not filled glyburide since August. TC to pt he states has not tried glipizide, but BS while not on glyburide has been controlled. Average nonfasting 130s, fasting 90s. Pt has upcoming appt /c pcp on 02/20/20, pt will discuss then unless further advised. elephone Encounter - Edna Herman LPN - 09/13/2019 3:10 PM EDTReceived denial, glipizide preferred. Unable to locate trial of glipizide. LM for pt to return call to Triage nurse. Please confirm if pt has tried glipizide and discontinue reason. elephone Encounter - Edna Herman LPN - 09/13/2019 2:20 PM EDTPA completed via Covermymeds, awaiting response. PRIOR AUTHORIZATION Medication for Prior Authorization: Glyburide Other formulary meds available : glipizide Insurance Company: [employer] phone number: [place]: [id number] Patient insurance ID number: [id number] Edna Herman LPN documented in this encounterTelephone Encounter - Kimberlee Lacey LPN - 03/09/2020 3:38 PM EDTPatient notified. He will get labs done soon. elephone Encounter - Gavi Carson) - 03/09/2020 2:36 PM EDTFasting blood sugar goal for him would be around 140 and 2 hours after meals around 180. A little bit higher than that occasionally is okay, this is safer then being low. Would recommend getting labs done, can wait until upcoming appointment to make any necessary changes Gavi Carson APRN.CNP elephone Encounter - Taniya White LPN - 03/09/2020 2:25 PM EDTCalled pt and he is concerned of blood sugars not blood pressure. He reports his blood sugars are running between 120-200. He checks them daily. He is taking the metformin 500 mg two tablets twice daily. He will be getting labs completed for appt later this month. Pt reports his isnrance told him to stop the glyburide. With the glyburide his blood sugars were running in the 60s. In review the glyburide needed prior auth. pcp says to get labs first.. elephone Encounter - Gavi Carson) - 03/09/2020 1:20 PM EDTHas he been checking BP's at home? If so, what are his most recent readings. Gavi Carson APRN.CNP elephone Encounter - Nicole Paulino Cma - 03/09/2020 8:38 AM EDTPlease advise. Nicole Paulino Cma elephone Encounter - Nicole Martinez - 03/08/2020 12:20 PM EDTRobert Angle is calling Mele Kessler MD today with concern regarding Patient Update Patient has been identified by name and birthdate. Duration of symptoms: N/A Person calling: self Call patient at: on cell [phone] (home) [phone] (cell) Patient is calling to let the doctor know he had been doing ok for a while on current BP medication,but now it doesn't seem to be as effective. Please advise patient of next step Was an appointment scheduled: No Closing statement: Results or non-symptom based questions: Thank you for calling [facility], your call will be returned within the next business day. Nicole Martinez documented in this encounter UNRECOGNIZED CONTENT PROVIDED BELOW FOR UNRECOGNIZED SECTION No Status Records Found UNRECOGNIZED CONTENT PROVIDED BELOW FOR UNRECOGNIZED SECTION INFORMATION SOURCE DATE CREATED AUTHOR AUTHOR'S ORGANIZATIO N 03/10/2020 [facility] Gibran miller
== END ==
PROVIDERS: PCP Internal Medicine; Visit Provider Nurse Practitioner Adult Health
DX: R31.0 Gross hematuria (principal)
CPT/HCPCS: 74178; Q9967

== ENCOUNTER 2019-12-28 05:57 | Day surgery (SDC) | payer MEDICARE, SELFPAY ==
[2019-10-27 09:32] VITALS: BMI 31.0
[2019-12-22 07:56] LABS: Hematocrit 41.9 % (40-54); Hemoglobin 14.1 g/dL (13.0-16.5); Mean Corp Hgb Conc 33.7 g/dL (32-36); Mean Corpuscular Hgb 29.3 pg (27.0-32.0); Mean Corpuscular Volume 87.1 fL (80-94); Mean Platelet Vol. 8.7 fl (6.2-12.0); Platelet Count 202 K/mm3 (150-450); RBC Distribution Width CV 12.7 % (11.6-14.6); RBC Distribution Width SD 39.9 fl (35.1-43.9); Red Blood Count 4.81 M/mm3 (4.6-6.2); White Blood Count 4.3 K/mm3 (4.4-11.0)
--- NOTE | 2019-12-22 07:58 | EKG12_ITS ---
Test Reason : PRE OP Blood Pressure : / mmHG Vent. Rate : 060 BPM Atrial Rate : 060 BPM P-R Int : 000 ms QRS Dur : 082 ms QT Int : 434 ms P-R-T Axes : 000 055 027 degrees QTc Int : 434 ms Likely sinus rhythm with low P wave voltage Abnormal ECG Confirmed by JEAN FERRER, SHAI ([id number]), makeup editor ALEX SOSA ([id number]) on 12/26/2019 11:35:37 AM Referred By: Ryder Michael Confirmed By:JOSE FRANCISCO PENA MD
[2019-12-22 08:24] LABS: Anion Gap 4 (5-15); BUN 18 mg/dL (7-18); BUN/Creat Ratio 15.4 RATIO (10-20); Calcium,Total 8.7 mg/dL (8.5-10.1); Chloride 106 mmol/L (98-107); Creatinine, Serum 1.17 mg/dL (0.70-1.30); EST Glomerular Filtration Rate 65 mL/min (>60); Est Glom Filt Rate - Afr Amer 79 mL/min (>60); Glucose 187 mg/dL (74-106); Potassium 4.1 mmol/L (3.5-5.1); Sodium Level 137 mmol/L (136-145)
[2019-12-22 08:29] LABS: Hemoglobin A1c 8.4 % (3.8-5.6)
[2019-12-28] VITALS (12 sets, daily range): BP systolic 90–132; BP diastolic 55–102; PULSE 61–70; RESP 16–18; TEMP 36.5–36.8; O2SAT 91–100; BMI 29.3
--- NOTE | 2019-12-28 | PROS_PTH ---
PATIENT: JOYCE JAIME [place] [facility] [id number] AGE/SX: 74/M ROOM: RE12/28/[address]: Dr. Ryder Michael MD : 1945 BED: DIS: 12/29/2019 SPEC #: [id number] RECD: 12/28/19 13:39 STATUS: TANNER PATEL #: [id number] ADAM: 12/28/19 00:[address]: Ryder Michael DEPT: SURGICAL PATHOLOGY RECD BY: Finesse Garcia ENTERED: 12/28/19 13:39 SP TYPE: TURP OTHR DR: Dr. Mele Salas MD Tissues: Prostate, NOS Procedures: Surgery Specimen Level IV HEADER OPERATION: TUR prostate, Olympus, cystolitholapaxy, bladder stones PRE-OP DIAGNOSIS: Bladder stones, BPH TISSUE SUBMITTED: Prostate chips and bladder stones MICROSCOPIC DIAGNOSIS Prostate chips and bladder stones, TUR: Benign prostatic hyperplasia, glandular and stromal type. Focal mild chronic inflammation. Fragments of stone, clinically bladder stones (gross only). SJ:flash 12/29/19 MICROSCOPIC DESCRIPTION Slides are reviewed. GROSS DESCRIPTION Received is one container labeled with the patient's name and designated prostate chips. The specimen consists of multiple irregular fragments of pink-tvaeras, rubbery, soft tissue that in aggregate weigh 42.5 gm (including stones) and measure in aggregate 6 x 6 x 3.2 cm. Battery Container Inspector portions are submitted in ten cassettes. / AM:flash 12/28/19 TC:5 CPT: 30669
[2019-12-28] MEDS: Lactated Ringers 1,000 ML 100 ML IV (06:58)
[2019-12-28] MEDS: Cefazolin 2 GM in 0.9% Normal Saline 100 ML IV (07:24)
--- NOTE | 2019-12-28 07:25 | PCM.HP.STD ---
Problem List (1) Bladder stones Status: Acute (2) BPH with obstruction/lower urinary tract symptoms Status: Acute History of Present Illness Date of Admission: 12/28/19 Chief Complaint: Bladder stones and BPH with obstruction The patient is a 74 year old male with a very large prostate is also found to have large obstructing bladder stones today we can proceed with a cystoscopy and laser litho-litholapaxy of the bladder stones and then were also can proceed with a transurethral resection of a very large prostate. Past Medical History Past Medical History (Chronic Problems): Chronic Problems (Last Reviewed 10/27/19 @ 09:37 by Sisi Dickson) History of left heart catheterization (Chronic 09/10/18) Perserved Left Ventricular systolic function with normal EDP; Non obstructive coronary arteries;Single vessel CAD of the LCX;Widely patet LAD stent; small DIAG#2 with 75% which is too small to PCI. Improved mid RCA stenosis over last cath. 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 History of placement of stent in LAD coronary artery (Chronic 10/05/13) Angioplasty/ SUNDAY LAD (3.5 X 16mm Promus Premiere) 10/06/13 @ [facility] per Dr. Kim Presence of cardiac pacemaker (Chronic 12/17/15) Insertion 12/17/2015 @ [facility] [employer] Model L311, serial # [id number] per Dr. Ellsworth, 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 History of non-insulin dependent diabetes mellitus (Chronic) Osteoarthritis of left hip (Chronic) BPH (benign prostatic hypertrophy) (Chronic) Osteoarthritis (Chronic) Dizziness (Chronic) Medical History: Medical History (Last Reviewed 12/28/19 @ 07:[address] Ryder Michael MD) Hyperlipidemia (Chronic) E78.5 Hypertension (Chronic) I10 Shortness of breath (Chronic) R06.02 Syncope and collapse (Resolved) R55 halfway use of drug (Chronic) Z79.899 Atherosclerotic heart disease of [place] coronary artery without angina pectoris (Chronic) I25.10 SUNDAY to LAD 10/06/2013 @ [facility] Incomplete AV heart block (Chronic) I44.30 pacemaker placed [facility] History of non-insulin dependent diabetes mellitus (Chronic) Z86.39 BPH (benign prostatic hypertrophy) (Chronic) N40.0 Osteoarthritis (Chronic) M19.90 Dizziness (Chronic) R42 Allergies No Known Allergies Allergy (Verified 12/21/19 10:07) Home Medications: Ambulatory Orders Medication Instructions Recorded Finasteride [Proscar] 5 mg PO DAILY 07/21/13 metformin 500 mg tablet 500 mg PO BIDCM tab 05/02/17 aspirin 81 mg tablet,delayed 81 mg PO DAILY tab 07/13/17 release simvastatin 40 mg tablet 40 mg PO QHS #90 tab 11/30/17 tamsulosin 0.4 mg capsule 0.4 mg PO DAILY 02/02/18 clopidogrel 75 mg tablet 75 mg PO DAILY #90 tab 11/30/19 Surgical History: Surgical History (Last Reviewed 10/27/19 @ 09:37 by Sisi Dickson) History of left heart catheterization (Chronic) Onset Date: 09/10/18 Z98.890 Perserved Left Ventricular systolic function with normal EDP; Non obstructive coronary arteries;Single vessel CAD of the LCX;Widely patet LAD stent; small DIAG#2 with 75% which is too small to PCI. Improved mid RCA stenosis over last cath. History of placement of stent in LAD coronary artery (Chronic) Onset Date: 10/05/13 Z95.5 Angioplasty/ SUNDAY LAD (3.5 X 16mm Promus Premiere) 10/06/13 @ [facility] per Dr. Kim Presence of cardiac pacemaker (Chronic) Onset Date: 12/17/15 Z95.0 Insertion 12/17/2015 @ [facility] [employer] Model L311, serial # [id number] per Dr. Ellsworth, [facility] H/O umbilical hernia repair Z98.890, Z87.19 History of left hip replacement Z96.642 History of prostate surgery Z98.890 Surgical History: - - Umbilical hernia repair, T+A, TURP, L total hip replacement, CAD w/ PCI x 1 stent. Psychiatric History: No pertinent psych hx Smoking Status: Never smoker Tobacco Use: Non-smoker - *Family History Maternal Family History: Family History (Last Reviewed 10/27/19 @ 09:37 by Sisi Dickson) Father CAD (coronary artery disease) History Items: No pertinent history Paternal Family History: Family History (Last Reviewed 10/27/19 @ 09:37 by Sisi Dickson) Father CAD (coronary artery disease) History Items: Heart Disease Review of Systems Constitutional: Denies: Chills, Fever, Weight Change HEENT: Denies: Head Aches, Sinus Congestion, Sinus Drainage Cardiovascular: Denies: Chest Pain, Palpitations Respiratory: Denies: Cough, Shortness of breath at rest, Sputum production Gastrointestinal: Denies: Abdominal Pain, Nausea, Vomiting Genitourinary: Denies: Dysuria Musculoskeletal: Denies: Joint Pain, Joint Tenderness Skin: Denies: Rash, Wounds Neurological: Denies: Numbness, Tingling, Focal weakness Psychiatric: Denies: Anxiety, Depression, Homicidal Ideations, Suicidal Ideations Hematologic/ Lymphatic: Denies: Easy Bruising, Easy Bleeding VTE Information - Inpt Only VTE Present on Admission: No VTE Mechan Device Prophylaxis: SCD's Patient Problems: Active and Suspected Problems (Last Reviewed 10/27/19 @ 09:37 by Sisi Dickson) Bladder stones (Acute) BPH with obstruction/lower urinary tract symptoms (Acute) - Physical Exam Vitals/I&O's: Vital Signs Temp Pulse Resp BP Pulse Ox 97.7 F L 61 16 127/79 H 99 12/28/19 06:26 12/28/19 06:26 12/28/19 06:26 12/28/19 06:26 12/28/19 06:26 Oxygen Delivery Method Room Air Weight: 90.1 kg Body Mass Index (BMI) 29.3 Finger Stick Blood Glucose 118 General: Alert, Oriented x3, Cooperative HEENT: Atraumatic, PERRLA, EOMI, Normocephalic Neck: Supple, No JVD, Negative Carotid Bruits Lungs: Clear to auscultation, Normal air movement Cardiovascular: Regular rate, No murmurs Abdomen: Bowel Sounds Present, Soft, Non Tender Extremities: No edema, Capillary Refill Less than 3 Seconds Skin: No rashes, No breakdown Musculoskeletal: No Tenderness to Palpation of Joints or Extremities Neurological: Cranial nerves II-XII grossly intact Psych/Mental Status: Normal Affect, Appropriate Current Medications Cefazolin Sodium 2 gm/ Sodium (Chloride) 110 mls @ 150 mls/hr IV PREOP ONE Stop: 12/28/19 08:13 Lactated Ringer's () 1,000 mls @ 100 mls/hr IV .Q10H ANGELINA Last Admin: 12/28/19 06:58 Dose: 100 mls/hr Documented by: Assessment/Plan All Active Problems (Last Reviewed 10/27/19 @ 09:37 by Sisi Dickson) Bladder stones (Acute) BPH with obstruction/lower urinary tract symptoms (Acute) Syncope and collapse (Resolved) Unstable angina (Resolved) Pre-syncope (Resolved) Prostatic calculus (Resolved) 74-year-old male with a history large bladder stones and large prostate plan to proceed with transurethral resection of the prostate and laser of the bladder stones.
--- NOTE | 2019-12-28 07:26 | DCINST_ITS ---
Discharge Diet: Light diet - advance as tolerated Discharge Activity: Return to Normal Activity Call your doctor if your incision/area has: Sudden Increased Bleeding Call your doctor if you observe: Fever of 101 or Higher Suture Line Care: Avoid Pulling/Pushing, Avoid Pinching/Bending Allergies/Adverse Reactions: Allergies No Known Allergies Allergy (Verified 12/21/19 10:07) Medications to take at Discharge Finasteride [Proscar] 5 mg PO DAILY 07/21/13 metformin 500 mg tablet 500 mg PO BIDCM tab 05/02/17 aspirin 81 mg tablet,delayed release 81 mg PO DAILY tab 07/13/17 simvastatin 40 mg tablet 40 mg PO QHS #90 tab 11/30/17 tamsulosin 0.4 mg capsule 0.4 mg PO DAILY 02/02/18 clopidogrel 75 mg tablet 75 mg PO DAILY #90 tab 11/30/19 Ciprofloxacin [Cipro] 500 mg PO BID #14 tab 12/28/19 Primary Care Physician: Mele Salas MD [Primary Care Provider] - Test Results: Test results from this visit will be discussed in further detail at your follow- up appointment, if applicable. Please Follow Up With: Ryder Michael MD When: in 2 weeks, please call to make an appointment.
[2019-12-28 07:46] LABS: Bedside Glucose 171 mg/dL (70-110)
--- NOTE | 2019-12-28 09:41 | PCM.OPRPT ---
Problem List (1) Bladder stones Status: Acute (2) BPH with obstruction/lower urinary tract symptoms Status: Acute Report of Operation Date of Procedure: 12/28/19 Pre-Operative Diagnosis: BPH with obstruction bladder stone large Post-Operative Diagnosis: Same Surgery/Procedure Performed:: Procedures,. #1, cystolitholapaxy and laser of multiple large bladder stones greater than 4 cm. #2 transurethral resection of the prostate Description of Surgical Findings:: 74-year-old male was taken back to the operating room at the smooth induction of general anesthesia he was placed in dorsolithotomy position the penis and testicles are prepped and draped in usual sterile fashion went into the bladder with a 21 [place] rigid cystoscope and identified several stones within the bladder these were quite large total about 4 cm in size. I then switched over to the continuous flow resectoscope we put in the laser bridge and we used the thousand micron laser fiber to laser the stones little tiny pieces and flushed of the stones of the bladder this took about 45 minutes the lowest laser the stones. I then switched over to the resectoscope and started working on the prostate had a very large prostate a lot of obstructive tissue resected the floor the prostate back to the verumontanum resected the right lobe of the prostate back to the verumontanum resected the left lobe the prostate back to the verumontanum I then switched over to the button and smooth out the resection there was still more ache apical tissue so I resected the apical tissue finally that a flow test had a wide open flow sphincter was intact I then cauterized and got good hemostasis from the bladder. Resection time was quite long it took about at least an hour and 20 minutes to resect all the tissue and then finally I had hemostasis. After the resection was completed placed a three-way catheter into the bladder and continuous bladder irrigation the patient anesthetic was reversed. I tried to check for the left and right ureteral orifice at the end of resection but have a heavily trabeculated bladder lots of inflammation so I really could not identify where the orifices were but to me it appeared that the resection was safe and away from the orifices. He was placed on continuous bladder [place] the urine was clear and his patient is being reversed with anesthesia. Type of Anesthesia:: General Drains: 3 way suero - Admit VTE Documentation VTE Present on Admission: No VTE Mechan Device Prophylaxis: SCD's
[2019-12-28 10:41] LABS: Bedside Glucose 207 mg/dL (70-110)
[2019-12-28] MEDS: Ciprofloxacin 400 MG/200 ML BAG 200 MG IV ×2 (11:41→21:58)
[2019-12-28] MEDS: 0.9% Normal Saline 1,000 ML 75 ML IV (11:42)
[2019-12-28] MEDS: metFORMIN HCl 500 MG Tablet PO (12:25)
[2019-12-28] MEDS: Ibuprofen 600 MG Tablet PO (17:29)
[2019-12-28 19:36] LABS: Bedside Glucose 224 mg/dL (70-110)
[2019-12-28] MEDS: Docusate Sodium 100 MG Capsule PO (21:49)
[2019-12-28] MEDS: Atorvastatin Calcium 20 MG Tablet PO (21:49)
[2019-12-28 21:56] LABS: Bedside Glucose 217 mg/dL (70-110)
[2019-12-28] MEDS: metFORMIN HCl 1,000 MG Tablet 1000 MG PO (21:58)
[2019-12-28 23:30] LABS: Bedside Glucose 226 mg/dL (70-110)
[2019-12-29 02:25] VITALS: BP 109/56; PULSE 61; RESP 18; TEMP 36.6; O2SAT 98
[2019-12-29] MEDS: 0.9% Normal Saline 1,000 ML 75 ML IV (02:28)
[2019-12-29 05:58] VITALS: BP 115/65; PULSE 62; RESP 18; TEMP 36.9; O2SAT 95
[2019-12-29 06:50] LABS: Hematocrit 37.9 % (40-54); Hemoglobin 12.3 g/dL (13.0-16.5); Mean Corp Hgb Conc 32.5 g/dL (32-36); Mean Corpuscular Volume 89.4 fL (80-94); Mean Platelet Vol. 9.1 fl (6.2-12.0); Platelet Count 161 K/mm3 (150-450); RBC Distribution Width CV 12.6 % (11.6-14.6); Red Blood Count 4.24 M/mm3 (4.6-6.2); White Blood Count 6.4 K/mm3 (4.4-11.0)
[2019-12-29 07:05] LABS: Bedside Glucose 192 mg/dL (70-110)
[2019-12-29 07:11] LABS: Anion Gap 5 (5-15); BUN 13 mg/dL (7-18); BUN/Creat Ratio 13.8 RATIO (10-20); Calcium,Total 7.8 mg/dL (8.5-10.1); Chloride 110 mmol/L (98-107); Creatinine, Serum 0.94 mg/dL (0.70-1.30); EST Glomerular Filtration Rate 83 mL/min (>60); Est Glom Filt Rate - Afr Amer 101 mL/min (>60); Estimated Creatinine Clearance 69.99 ml/min; Glucose 184 mg/dL (74-106); Potassium 4.2 mmol/L (3.5-5.1); Sodium Level 138 mmol/L (136-145)
[2019-12-29 07:55] VITALS: BP 119/65; PULSE 68; RESP 18; TEMP 36.4; O2SAT 95
[2019-12-29] MEDS: metFORMIN HCl 1,000 MG Tablet 1000 MG PO (08:08)
[2019-12-29] MEDS: Docusate Sodium 100 MG Capsule PO (08:09)
[2019-12-29] MEDS: Pantoprazole Sodium 40 MG Tablet PO (08:10)
[2019-12-29] MEDS: Ibuprofen 600 MG Tablet PO (10:33)
[2019-12-29 10:36] VITALS: BP 100/52; PULSE 77; RESP 18; TEMP 36.6; O2SAT 96
--- NOTE | 2019-12-29 12:01 | PHA.DC.MC ---
Pharmacy Service has performed discharge medication reconciliation and counseling for this patient. 1. CIPROFLOXACIN 500MG PO BID X 7 DAYS The patient's discharge medication list was reviewed for discrepancies and discrepancies were resolved. Home Medications Finasteride [Proscar] 5 mg PO DAILY 07/21/13 metformin 500 mg tablet 1,000 mg PO BIDCM tab 05/02/17 aspirin 81 mg tablet,delayed release 81 mg PO DAILY tab 07/13/17 simvastatin 40 mg tablet 40 mg PO QHS #90 tab 11/30/17 tamsulosin 0.4 mg capsule 0.4 mg PO DAILY 02/02/18 clopidogrel 75 mg tablet 75 mg PO DAILY #90 tab 11/30/19 Ciprofloxacin [Cipro] 500 mg PO BID #14 tab 12/28/19 The patient was counseled on the following discharge medications and changes in medications for homegoing were reviewed. The Reason for Use, instructions for use, and potential side effects were reviewed for all new medications. The patient's questions regarding all of their medications were answered. The patient was able to verbally demonstrate an understanding of their discharge medications. Patient was counseled by hospital pharmacy technicianJaswinder.
== END 2019-12-29 12:07 | disposition home or self-care (01) ==
LOC: SDC 05:58 → AC 05:58 → MS3 12-29 08:15
PROVIDERS: Anesthesiology; PCP Internal Medicine; Referring Provider Urology; Visit Provider Urology
PROC: (CPT 52318; principal; 2019-12-28 07:20)
DX: N40.1 Benign prostatic hyperplasia with lower urinary tract symptoms (principal); R31.0 Gross hematuria; N30.21 Other chronic cystitis with hematuria; R97.20 Elevated prostate specific antigen [PSA]; N21.0 Calculus in bladder; E11.9 Type 2 diabetes mellitus without complications; E78.5 Hyperlipidemia, unspecified; I10 Essential (primary) hypertension; I25.10 Atherosclerotic heart disease of native coronary artery without angina pectoris; Z79.82 Long term (current) use of aspirin; Z79.84 Long term (current) use of oral hypoglycemic drugs; Z82.49 Family history of ischemic heart disease and other diseases of the circulatory system; Z95.0 Presence of cardiac pacemaker; Z95.5 Presence of coronary angioplasty implant and graft; Z96.642 Presence of left artificial hip joint
CPT/HCPCS: 00914; 52318; 52601; 36415; 80048; 82962; 83036; 85027; 87635; 88305; 93005; 94799; 99251; J7030; J7120; G0463; J0744; U0003

== ENCOUNTER 2020-04-16 12:36 | Emergency (ER) | payer MEDICARE, SELFPAY ==
[2019-12-28 11:32] VITALS: BMI 29.3
[2020-04-16 12:38] VITALS: BP 146/80; PULSE 66; RESP 17; TEMP 35.3; O2SAT 98; BMI 29.3
--- NOTE | 2020-04-16 13:15 | EKG12_ITS ---
Test Reason : BACK PAIN Blood Pressure : / mmHG Vent. Rate : 067 BPM Atrial Rate : 067 BPM P-R Int : 230 ms QRS Dur : 080 ms QT Int : 400 ms P-R-T Axes : -25 048 009 degrees QTc Int : 422 ms Atrial-paced rhythm with prolonged AV conduction Abnormal ECG Confirmed by JEAN FERRER, SHAI ([id number]), story editor XI CHOI ([id number]) on 04/23/2020 9:27:36 A M Referred By: DAVON Confirmed By:JOSE FRANCISCO PENA MD
--- NOTE | 2020-04-16 13:16 | CT_ITS ---
STUDY: CT BRAIN WITHOUT CONTRAST REASON FOR EXAM: Male, 74 years old. LEFT SIDE NUMBNESS RADIATION DOSAGE (If Supplied By Facility): CTDIvol = ( 60.81 ) mGy, DLP = ( 1044.28 ) mGycm TECHNIQUE: Transaxial CT imaging of the brain was performed without administration of intravenous contrast material. Individualized dose optimization techniques were used for this CT. COMPARISON: No relevant priors. FINDINGS: Normal soft tissue structures. Normal calvarium. There is mild cerebral atrophy with widening of the extra-axial spaces and ventricular dilatation. Normal white matter tracts of the cerebral hemispheres. Normal basal ganglia and thalami. Normal brainstem. Normal cerebellum. There is no intracranial hemorrhage. There are no findings of an acute ischemic infarction. Atherosclerotic calcification of the vertebral arteries and cavernous portions of the internal carotid arteries bilaterally. Normal visualized paranasal sinuses. CT/Brain/Head without Contrast IMPRESSION: Chronic involutional changes of the brain. Electronically Signed: Mateusz Alexandra, at 14:27 EST , Service support ,
--- NOTE | 2020-04-16 13:17 | ED.VIS.GI ---
History of Present Illness Chief Complaint: Numb/Ting Detail of Chief Complaint: intermittent chest / abd pain, left face numbness - Abdominal Pain/Flank Pain Onset: Today Context: - - woke up w/ numbness left cheek around 7am, persistent since Timing: Continuous Quality: - - like when teeth numbed at the dentist Location: - - left cheek, no numbness elsewhere Current Severity: Mild Maximum Severity: Moderate Worsened by: Nothing Relieved by: Nothing - Nausea/Vomiting/Emesis GI Symptom: Negative for: Nausea, Vomiting - Diarrhea/Melena/Hematochezia GI Symptom: Negative for: Diarrhea, Melena, Hematochezia Associated Symptoms: Negative for: Dysuria, Frequency, Hematuria Narrative: Patient states for 3 weeks he has had intermittent discomfort in his left lateral lower chest and left upper quadrant, that radiates into his left shoulder. It is not there currently. He called his doctor's office to get an appointment because of this, and also described the fact that he woke up with numbness in his left cheek this morning that is better than it was earlier, and as result was referred here to the ER. He states there are days where he does not have the chest and abdominal discomfort, and then there are other days when he has 3 episodes. He has had a herniorrhaphy but no other abdominal surgeries. He denies any trouble with speech or understanding others, no trouble walking, no weakness in his arms or legs or numbness there, or facial droop or trouble swallowing recently. He states he has had numbness in his left face off and on many times in the past and it usually goes away as he expected it to do today. No history of stroke that he knows of and he takes no anticoagulants for any reason. No recent illness. Patient presenting during the COVID-19 pandemic and has no known contact with anyone with COVID-19 that he knows of. - Past Medical History (1) Atherosclerotic heart disease of [place] coronary artery without angina pectoris Status: Chronic Comment: SUNDAY to LAD 10/06/2013 @ [facility] (2) BPH (benign prostatic hypertrophy) Status: Chronic (3) History of placement of stent in LAD coronary artery Status: Chronic Comment: Angioplasty/ SUNDAY LAD (3.5 X 16mm Promus Premiere) 10/06/13 @ [facility] per Dr. Kim (4) Hyperlipidemia Status: Chronic (5) Hypertension Status: Chronic (6) Osteoarthritis Status: Chronic Past Medical History - Allergies and Home Meds Allergies/Adverse Reactions: Allergies No Known Allergies Allergy (Verified 04/16/20 12:37) Primary Care Physician: Mele Salas MD [Primary Care Provider] - Surgical History: - - Umbilical hernia repair, T+A, TURP, L total hip replacement, CAD w/ PCI x 1 stent. Smoking Status: Never smoker - Family History Maternal Family History: Family History (Last Reviewed 10/27/19 @ 09:37 by Sisi Dickson) Father CAD (coronary artery disease) Family History: Reports: No pertinent history Paternal Family History: Family History (Last Reviewed 10/27/19 @ 09:37 by Sisi Dickson) Father CAD (coronary artery disease) Family History: Reports: Heart Disease Review of Systems General: Denies: Chills, Fever, Sweats Eyes: Denies: Visual changes - bilaterally, Diplopia ENT: Denies: Rhinorrhea, Sore throat Cardiovascular: Reports: Chest pain - Intermittent left lower lateral chest, currently resolved. Denies: Palpitations Respiratory: Denies: Dyspnea, Cough, Dyspnea on exertion Gastrointestinal: Reports: Abdominal pain - See HPI, currently resolved, Constipation. Denies: Nausea, Vomiting, Diarrhea, Melena, Hematochezia Genitourinary: Denies: Dysuria, Hematuria, Frequency Musculoskeletal: Reports: Extremity Pain - Left shoulder intermittently, currently gone. Denies: Myalgias, Neck pain, Back pain Skin: Denies: Rash, Wounds Neurological: Reports: Numbness. Denies: Headache, Weakness Physical Exam Vital Signs/Narrative: Vital Signs Temp Pulse Resp BP Pulse Ox 04/16/20 12:38 95.5 F L 66 17 146/80 H 98 Inital Vital Signs reviewed: Yes General: Well nourished, Well developed, No Acute Distress Head: Normocephalic, Atraumatic Eyes: Perrl, EOMI ENT: Moist mucous membranes, No rhinorrhea Neck: Supple, Nontender Cardiovascular: Regular rate, Regular rhythm, No murmurs Respiratory: No distress, CTA bilaterally, Chest nontender Abdomen: Soft, Nontender, Nondistended, Normal bowel sounds, Ventral hernia - Only present when patient flexes his abdominal musculature. Nontender, no overlying erythema. Back: Nontender, Normal Inspection Extremities: Nontender, No edema Skin: Normal color, No rash Neurological: Alert, Oriented x3, Cranial nerves II-XII grossly intact, Normal Strength, Parasthesia - Only in left maxilla area. No facial droop. No numbness in forehead or jawline. Numbness is subjective., - - NIHSS 1 due to the paresthesias only. Psychological: Normal affect, Normal Mood Diagnostic/Tx/Re-eval Impressions Brain CT 04/16/20 13:16 IMPRESSION: Chronic involutional changes of the brain. Electronically Signed: Mateusz Kofarzana, at 14:27 EST , Service support , 04/16/20 13:16 CT Brain [Brain/Head without Contrast] [CT] Stat Laboratory Results 04/16/20 04/16/20 14:00 14:00 WBC 4.9 RBC 5.15 Hgb 14.7 Hct 43.6 MCV 84.7 MCH 28.5 MCHC 33.7 RDW Std Deviation 37.7 RDW Coeff of [place]qu[place] 12.4 Plt Count 210 MPV 8.7 Immature Gran % (Auto) 0.400 Neut % (Auto) 68.0 Lymph % (Auto) 21.0 [place] % (Auto) 7.1 Eos % (Auto) 3.1 Baso % (Auto) 0.4 Absolute Neuts (auto) 3.3 Absolute Lymphs (auto) 1.03 Nucleated RBC % 0 Sodium 140 Potassium 4.3 Chloride 106 Carbon Dioxide 27.0 Anion Gap 7 BUN 17 Creatinine 1.03 Estim Creat Clear Calc 63.87 Est GFR (MDRD) Af Amer 91 Est GFR (MDRD) Non-Af 75 BUN/Creatinine Ratio 16.5 Glucose 161 H Calcium 8.9 Total Bilirubin 0.30 AST 12 L ALT 24 Alkaline Phosphatase 72 Troponin I < 0.015 Total Protein 7.3 Albumin 3.7 Globulin 3.6 Albumin/Globulin Ratio 1.0 Lipase 186 - Rhythm Strip Rhythm Strip: Sinus Rhythm Rate: 67 Ectopy: None - EKG Initial EKG Interpretation: No Acute Injury Pattern, Paced - Atrial with normal ventricular conduction - Medical Decision Making Given that the patient woke up with symptoms, I do not think he is having a large stroke and given the fact that he has no disabling symptoms, TPA is not indicated and so stroke team was not called. CT negative, obviously that does not rule out the possibility of a stroke. However, since the patient states he has been having these symptoms chronically off and on every couple months or so, I do not think that we need to admit him for it today. It is possible he is having Kehr sign giving him the left shoulder discomfort, however if he had a splenic capsular hematoma or rupture, he certainly would be thought to have tenderness in the left upper quadrant, and he has no tenderness in his abdomen objectively. I do not think he needs a CT for this reason at this time. He is not having pain right now, and the paresthesias are almost completely gone without doing anything. He takes daily aspirin. I think he can continue that. I do not think he has an emergent condition and I think he is stable for discharge home and he is comfortable with that plan. ED Disposition - Plan for ED Patient: Disposition: Home or Assisted Living Diagnosis: Facial paresthesia, Intermittent left-sided chest pain Instructions: ED Chest Pain NonCardiac, ED Paraesthesias Referrals: Mele Salas MD [Primary Care Provider] - 3-5 Days
[2020-04-16 14:08] VITALS: BP 154/89; PULSE 60; RESP 19; O2SAT 97
[2020-04-16 14:13] LABS: Absolute Lymphocyte Count 1.03 X10^3/uL (0.83-4.51); Absolute Neutrophil Count 3.3 X10^3/uL (2.0-7.7); Basophil# 0.02 X10^3/uL; Basophil% 0.4 % (0-1); Eosinophil# 0.15 X10^3/uL; Eosinophils% 3.1 % (0-5); Hematocrit 43.6 % (40-54); Hemoglobin 14.7 g/dL (13.0-16.5); Lymphocyte # 1.03 X10^3/ul (4.0); Mean Corp Hgb Conc 33.7 g/dL (32-36); Mean Corpuscular Hgb 28.5 pg (27.0-32.0); Mean Corpuscular Volume 84.7 fL (80-94); Mean Platelet Vol. 8.7 fl (6.2-12.0); Monocyte# 0.35 X10^3/uL; Monocyte% 7.1 % (0-10); NRBC Flagged by Analyzer 0 % (0-5); Neutrophil # 3.33 X10^3/uL (2.7-7.7); Platelet Count 210 K/mm3 (150-450); RBC Distribution Width CV 12.4 % (11.6-14.6); RBC Distribution Width SD 37.7 fl (35.1-43.9); Red Blood Count 5.15 M/mm3 (4.6-6.2); White Blood Count 4.9 K/mm3 (4.4-11.0)
[2020-04-16 14:31] LABS: AST(SGOT) 12 U/L (15-37); Alanine Aminotransfer ALT/SGPT 24 U/L (16-61); Albumin, Serum 3.7 g/dL (3.2-5.0); Alkaline Phosphatase 72 U/L (45-117); Anion Gap 7 (5-15); BUN 17 mg/dL (7-18); BUN/Creat Ratio 16.5 RATIO (10-20); Calcium,Total 8.9 mg/dL (8.5-10.1); Chloride 106 mmol/L (98-107); Creatinine, Serum 1.03 mg/dL (0.70-1.30); EST Glomerular Filtration Rate 75 mL/min (>60); Est Glom Filt Rate - Afr Amer 91 mL/min (>60); Estimated Creatinine Clearance 63.87 ml/min; Globulin 3.6 g/dL (2.2-4.2); Glucose 161 mg/dL (74-106); Lipase 186 U/L (73-393); Potassium 4.3 mmol/L (3.5-5.1); Protein, Total 7.3 g/dL (6.4-8.2); Sodium Level 140 mmol/L (136-145)
[2020-04-16 15:30] VITALS: BP 145/77; RESP 20; O2SAT 96
== END 2020-04-16 15:30 | disposition home or self-care (01) ==
PROVIDERS: Emergency Provider Emergency Medicine; PCP Internal Medicine
DX: R07.89 Other chest pain (principal); R20.2 Paresthesia of skin; E78.5 Hyperlipidemia, unspecified; I10 Essential (primary) hypertension; I25.10 Atherosclerotic heart disease of native coronary artery without angina pectoris; M19.90 Unspecified osteoarthritis, unspecified site; N40.0 Benign prostatic hyperplasia without lower urinary tract symptoms; Z82.49 Family history of ischemic heart disease and other diseases of the circulatory system; Z95.5 Presence of coronary angioplasty implant and graft; Z90.79 Acquired absence of other genital organ(s)
CPT/HCPCS: 70450; 80053; 83690; 84484; 85025; 93005; 99283

== ENCOUNTER → 2020-06-14 10:41 | Outpatient (CLI) | payer MEDICARE, SELFPAY ==
[2020-06-04 10:50] VITALS: BMI 28.6
[2020-06-14 12:05] LABS: AST(SGOT) 12 U/L (15-37); Alanine Aminotransfer ALT/SGPT 22 U/L (16-61); Albumin, Serum 3.5 g/dL (3.2-5.0); Alkaline Phosphatase 78 U/L (45-117); Bilirubin, Direct 0.12 mg/dL (0.00-0.30); Cholesterol 142 mg/dL (200); Globulin 3.7 g/dL (2.2-4.2); High Density Lipoprotein 31 mg/dL; Protein, Total 7.2 g/dL (6.4-8.2); Triglycerides 171 mg/dL; Very Low Density Lipoprotein 34 mg/dL (5-40)
== END ==
PROVIDERS: PCP Internal Medicine; Referring Provider Nurse Practitioner Family; Visit Provider Nurse Practitioner Family
DX: E78.5 Hyperlipidemia, unspecified (principal); I25.10 Atherosclerotic heart disease of native coronary artery without angina pectoris
CPT/HCPCS: 36415; 80061; 80076

== ENCOUNTER → 2020-09-08 08:52 | Outpatient (CLI) | payer MEDICARE, SELFPAY ==
[2020-06-04 10:50] VITALS: BMI 28.6
[2020-09-08 09:57] LABS: Hematocrit 41.1 % (40-54); Mean Corp Hgb Conc 34.1 g/dL (32-36); Mean Corpuscular Hgb 29.4 pg (27.0-32.0); Mean Corpuscular Volume 86.3 fL (80-94); Mean Platelet Vol. 9.1 fl (6.2-12.0); Platelet Count 235 K/mm3 (150-450); RBC Distribution Width CV 12.2 % (11.6-14.6); RBC Distribution Width SD 38.5 fl (35.1-43.9); Red Blood Count 4.76 M/mm3 (4.6-6.2); White Blood Count 5.4 K/mm3 (4.4-11.0)
[2020-09-08 10:40] LABS: Anion Gap 4 (5-15); BUN 19 mg/dL (7-18); BUN/Creat Ratio 16.5 RATIO (10-20); Chloride 105 mmol/L (98-107); Creatinine, Serum 1.15 mg/dL (0.70-1.30); EST Glomerular Filtration Rate 66 mL/min (>60); Est Glom Filt Rate - Afr Amer 80 mL/min (>60); Glucose 159 mg/dL (74-106); Magnesium 1.9 mg/dL (1.6-2.6); Potassium 3.9 mmol/L (3.5-5.1); Sodium Level 137 mmol/L (136-145); T4 Total, Thyroxin 7.5 ug/dL (4.5-12.1); Thyroid Stim Hormone (TSH) 1.94 uIU/mL (0.358-3.74)
== END ==
PROVIDERS: PCP Internal Medicine; Referring Provider Internal Medicine Cardiovascular Disease; Visit Provider Internal Medicine Cardiovascular Disease
DX: I25.10 Atherosclerotic heart disease of native coronary artery without angina pectoris (principal); I10 Essential (primary) hypertension; E78.5 Hyperlipidemia, unspecified; I48.92 Unspecified atrial flutter; Z95.5 Presence of coronary angioplasty implant and graft; Z95.0 Presence of cardiac pacemaker
CPT/HCPCS: 36415; 80048; 83735; 84436; 84443; 85027

== ENCOUNTER → 2020-10-02 06:18 | Outpatient (CLI) | payer MEDICARE, SELFPAY ==
[2020-09-12 09:06] VITALS: BMI 28.6
--- NOTE | 2020-10-02 06:21 | ECHOCS_ITS ---
Reason For Study: Afib/Flutter Procedure This was a 2D Doppler, Color Flow transthoracic echocardiogram. The study was technically difficult. Contrast injection was performed. Exam performed in department. Left Ventricle Normal LV size. Left ventricular systolic function is normal. The estimated ejection fraction is 60 %. No regional wall motion abnormalities noted. Right Ventricle Normal RV size. ICD or pacer leads identified within the right ventricle. Normal systolic function. Atria Normal left atrium. Normal right atrium. ICD or pacer leads identified within the right atrium. No doppler evidence for ASD. Mitral Valve There is no mitral annular calcification. Normal mitral valve. Trivial mitral valve insufficiency. Tricuspid Valve Normal tricuspid valve. Trivial tricuspid valve insufficiency. Unable to estimate RV systolic pressure/pulmonary artery pressure due to technically difficult study. Aortic Valve Trisinus/trileaflet aortic valve. Normal aortic valve. Pulmonic Valve The pulmonic valve is not well visualized. Great Vessels Normal sized aortic root. Pericardium/Pleural No pericardial effusion. Medication 22 gauge I.V. with prn adaptor inserted into left arm. Diluted definity 4ml given slow IV push to enhance endocardial definition. MMode/2D Measurements & Calculations LVIDd: 4.3 cm IVSd: 1.2 cm Ao root diam: 3.8 cm LVIDs: 2.4 cm LVPWd: 0.93 cm LA dimension: 3.2 cm RVDd: 3.3 cm FS: 45.3 % LAV(MOD-bp): 56.1 ml LA A4 area: 20.6 cm2 RA A4 area: 13.9 cm2 LAV(MOD-bp) Indexed: 27.5 ml/m2 LAV(MOD-sp2): 56.7 ml LAV(MOD-sp4): 49.4 ml Time Measurements MV dec time: 0.21 sec Doppler Measurements & Calculations MV E max terry: 81.2 cm/sec Lat Peak E' Terry: 6.9 cm/sec Med Peak E' Terry: 7.0 cm/sec MV A max terry: 74.7 cm/sec E/E' lat: 11.8 E/E' med: 11.5 MV E/A: 1.1 MV V2 max: 77.1 cm/sec MV P1/2t max terry: 77.6 cm/sec Ao V2 max: 117.3 cm/sec MV max P.4 mmHg MV P1/2t: 91.1 msec Ao max P.5 mmHg MV V2 mean: 44.8 cm/sec MV dec slope: 249.5 cm/sec2 MV mean P.91 mmHg MV V2 VTI: 26.0 cm MVA(P1/2t): 2.4 cm2 LV V1 max: 116.5 cm/sec PA V2 max: 75.1 cm/sec LV V1 max P.4 mmHg ECHO/Echo Complete W/ Contrast Interpretation Summary The study was technically difficult. Contrast injection was performed. Left ventricular systolic function is normal. The estimated ejection fraction is 60 %. Trivial mitral valve insufficiency. Trivial tricuspid valve insufficiency. Unable to estimate RV systolic pressure/pulmonary artery pressure due to techni romaine difficult study. Transmitral diastolic flow velocities suggest diastolic dysfunction (pseudonorm al pattern). ICD or pacer leads identified within the right atrium ICD or pacer leads identified within the right ventricle. Ordering Physician: Gaurav Dia Referring Physician: Mele Salas M.D. Performed By: Mateo Yang RCS
--- NOTE | 2020-10-02 12:24 | STRESSREP ---
Stress Test Report Date: 10-02-2020 Procedure: Pharmacologic stress nuclear imaging study Indications: Chest pain; shortness of breath; CAD; PCI; atrial fibrillation/flutter; permanent pacemaker Consent: Per the patient Procedure: The patient underwent pharmacologic (Regadenoson 0.4mg ) evaluation with a peak heart rate of 82 beats per minute (56%predicted maximal heart rate) and a peak blood pressure of 154/80 mmHg. The baseline ECG demonstrated sinus versus ectopic atrial rhythm. The peak pharmacologic ECG demonstrated no obvious ECG changes. There were no cardiac dysrhythmias pretest, during pharmacologic infusion, or recovery. There was no complaint of chest discomfort during pharmacologic infusion or recovery. The examination was discontinued secondary to completion of protocol. Impression: 1. Pharmacologic (Regadenoson) evaluation 2. Peak pharmacologic ECG with no obvious ECG changes. 3. There were no cardiac dysrhythmias pretest, during pharmacologic infusion, or recovery. 4. Nuclear images pending Myocardial perfusion imaging study: Technique: The patient was injected with 11.2 millicuries of technetium 99m Cardiolite and subsequently rest SPECT Cardiolite nuclear imaging was obtained in the horizontal long, vertical long, and short axis views. The patient underwent pharmacologic (Regadenoson) evaluation with a peak heart rate of 82 beats per minute (56% percent predicted maximal heart rate) and a peak blood pressure of 154/80 mmHg. The patient was injected with 32.8 millicuries of technetium 99m Cardiolite and subsequently stress SPECT Cardiolite nuclear imaging was obtained in the horizontal long, vertical long, and short axis views. A gated Cardiolite study at peak stress was obtained. Interpretation: Rest and stress SPECT Cardiolite nuclear imaging status post realignment, normalization, and attenuation correction demonstrate relative uniform tracer uptake and myocardial perfusion appearing within normal limits. There is end systolic thickening and brightening. The gated Cardiolite study demonstrates myocardial thickening and inward wall motion. The reported LVEF is 65%. Impression: 1. Rest and stress SPECT Cardiolite nuclear imaging demonstrate relative uniform tracer uptake and myocardial perfusion appearing within normal limits. 2. The gated Cardiolite study reports an LVEF of 65%. This note was generated with [employer] software. It may contain incorrect words, spelling, and punctuation that were not noted in checking the note before signing.
== END ==
PROVIDERS: PCP Internal Medicine; Referring Provider Nurse Practitioner Family; Visit Provider Nurse Practitioner Family
DX: I48.91 Unspecified atrial fibrillation (principal); I48.92 Unspecified atrial flutter; R07.9 Chest pain, unspecified; R06.02 Shortness of breath; I25.10 Atherosclerotic heart disease of native coronary artery without angina pectoris
CPT/HCPCS: 78452; 93017; 93306; A9500; Q9957; A4216; C8929; J2785

== ENCOUNTER 2023-04-27 12:02 | Emergency (ER) | payer MEDICARE, SELFPAY ==
[2023-04-27 12:03] VITALS: BP 128/80; PULSE 98; RESP 16; TEMP 35.9; O2SAT 94; BMI 29.9
--- NOTE | 2023-04-27 12:04 | EKG12_ITS ---
Test Reason : DIZZINESS Blood Pressure : / mmHG Vent. Rate : 096 BPM Atrial Rate : 000 BPM P-R Int : 000 ms QRS Dur : 080 ms QT Int : 340 ms P-R-T Axes : 000 044 -31 degrees QTc Int : 429 ms Atrial fibrillation with occasional ventricular-paced complexes Nonspecific ST and T wave abnormality Abnormal ECG Confirmed by LORIE FERRER, GLADYS ([id number]), development editor XI CHOI ([id number]) on 04/28/2023 10:47:48 AM Referred By: Confirmed By:GLADYS MELO MD
--- NOTE | 2023-04-27 12:31 | EDS_ITS ---
HPI <LOVE Ash - Last Filed: 04/27/23 15:27> History of Present Illness Chief Complaint: Dizziness Narrative Narrative: Patient is a 77-year-old male with history of atrial fibrillation, pacemaker, on Xarelto, BPH, hyperlipidemia presents to the emergency department for 2 days of generalized dizziness. He describes his dizziness as faint, lightheaded. Patient dates that usually when he is up doing things. Patient dates he is more fatigued on exertion. Patient did not miss any of his doses. Patient also states that over the last 24 hours he has been having more fevers, body aches, he did take a COVID test at home that was negative. Patient denies any cough or infectious-like symptoms. 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 Osteoarthritis Osteoarthritis of left hip Paroxysmal atrial flutter Pre-syncope Shortness of breath Syncope and collapse Unstable angina Home Medications metformin 500 mg tablet 1,000 mg PO BIDCM 05/02/17 [History Last Taken 09/10/18] aspirin 81 mg tablet,delayed release 81 mg PO DAILY 07/13/17 [History Last Taken 09/10/18] simvastatin 40 mg tablet 40 mg PO QHS #90 tabs 11/30/17 [Rx Last Taken Unknown] rivaroxaban 20 mg tablet (Xarelto) 20 mg PO QPM #90 tabs 10/31/22 [Rx Last Taken Unknown] meclizine 25 mg tablet 25 mg PO BID PRN dizziness #14 tabs 04/27/23 [Rx Last Taken Unknown] Allergy/AdvReac Type Severity Reaction Status Date / Time apixaban [From Eliquis] AdvReac Severe severe Verified 01/03/22 14:21 diarrhea amlodipine AdvReac dizziness Verified 09/23/22 14:07 Family History Father CAD (coronary artery disease) Surgical History H/O umbilical hernia repair History of left heart catheterization (09/10/18) History of left hip replacement History of placement of stent in LAD coronary artery (10/05/13) History of prostate surgery History of transurethral resection of prostate Presence of cardiac pacemaker (12/17/15) Social History Smoking Status: Never smoker alcohol intake: never substance use type: does not use caffeine: No what type of physical activity do you participate in: none seatbelt use: always do you feel safe at home: Yes ROS <LOVE Ash - Last Filed: 04/27/23 15:27> ROS ED ROS Narrative Constitutional: Negative for chills, weight loss, weakness. Positive fever Eyes: Negative for vision loss, vision change, double vision ENT: Negative for any sore throat, ear pain, congestion Cardiovascular: Negative for any chest pain, tightness, palpitations Respiratory: Negative for any cough, sputum production, hemoptysis, dyspnea, dyspnea on exertion, orthopnea Gastrointestinal: Negative for any abdominal pain, nausea, vomiting, diarrhea, constipation, blood in stool, blood in vomit : Negative for any urinary frequency, dysuria, retention, blood in urine Muscle skeletal: Negative for any myalgias, arthralgias, neck pain, back pain Neurological: Negative for any headache, syncope, numbness or tingling. Positive for dizziness, feeling of faint Skin: Negative for any rashes, lumps, itching, abrasions, lacerations Psychiatric: Negative for any depression, anxiety, stress, suicidal ideation, homicidal ideation Hematologic: Negative for any easy bruising, excessive bruising, easy bleeding Allergies: Negative for any eczema, hives, rash EXAM <LOVE Ash - Last Filed: 04/27/23 15:27> Physical Exam Narrative Exam Narrative: Vital signs reviewed. Patient appears to be in no obvious distress. Patient is asymptomatic while sitting still. HEET: Head normocephalic atraumatic, TMs clear bilaterally. Posterior pharynx is clear, moist mucous membranes. Nares clear bilaterally. Neck: Supple with no lymphadenopathy or tenderness. No signs of meningismus. Cardiac: Regular rate no murmurs gallops or rubs, equal peripheral pulses bilaterally. Respiratory: Lungs clear to auscultation bilaterally. No chest tenderness. Abdomen: Soft, nontender, nondistended. No abdominal bruit or pulsatile masses. No hepatosplenomegaly Extremities: No peripheral edema, no signs of gross trauma or deformity. Active full range of motion of all extremities. Neuro: Cranial nerves II through XII intact, no focal neurological deficits. Skin: Clean dry and intact with no rash, purpura, petechiae, vesicles or pustules. Backs/flank: No CVA tenderness, no midline spinal tenderness, no deformity. Psych: Normal mood and affect. No SI, HI or acute psychosis. Const Vital Signs: 04/27/23 12:03 04/27/23 12:40 04/27/23 12:47 Temperature 96.7 F L Temperature Source Temporal Pulse Rate 98 Pulse Rate [Lying] 90 Pulse Rate [Standing (for 1 minute prior to obtaining)] 103 H Respiratory Rate 16 Blood Pressure 128/80 H Blood Pressure [Lying] 115/79 Blood Pressure [Standing (for 1 minute prior to obtaining)] 88/64 L Blood Pressure Mean 96 Blood Pressure Mean [Lying] 91 Blood Pressure Mean [Standing (for 1 minute prior to obtaining)] 72 Pulse Ox 94 Oxygen Delivery Method Room Air Room Air Positive well nourished and well developed General Appearance ED: well developed <Dr. Obie Adler DO - Last Filed: 05/01/23 15:18> Physical Exam Const Vital Signs: 04/27/23 12:03 04/27/23 12:40 04/27/23 12:47 Temperature 96.7 F L Temperature Source Temporal Pulse Rate 98 Pulse Rate [Lying] 90 Pulse Rate [Standing (for 1 minute prior to obtaining)] 103 H Respiratory Rate 16 Blood Pressure 128/80 H Blood Pressure [Lying] 115/79 Blood Pressure [Standing (for 1 minute prior to obtaining)] 88/64 L Blood Pressure Mean 96 Blood Pressure Mean [Lying] 91 Blood Pressure Mean [Standing (for 1 minute prior to obtaining)] 72 Pulse Ox 94 Oxygen Delivery Method Room Air Room Air MDM <LOVE Ash - Last Filed: 04/27/23 15:27> MDM Lab Data Labs: Laboratory Results - last 24 hr 04/27/23 13:11 WBC 3.4 L RBC 4.82 Hgb 14.0 Hct 43.3 MCV 89.8 MCH 29.0 MCHC 32.3 RDW Std Deviation 40.5 RDW Coeff of [place]qu[place] 12.3 Plt Count 141 L MPV 8.6 Immature Gran % (Auto) 0.600 Neut % (Auto) 82.3 H Lymph % (Auto) 9.6 L [place] % (Auto) 7.2 Eos % (Auto) 0.0 Baso % (Auto) 0.3 Absolute Neuts (auto) 2.8 Absolute Lymphs (auto) 0.32 L Nucleated RBC % 0 Radiography Diagnostic Testing: Clinical Impression(s) from Imaging Studies Chest X-Ray 04/27/23 12:42 IMPRESSION: Stable chest with no acute superimposed finding. Electronically Signed: Torin Parra MD at 12:58 EST , EKG Atrial fibrillation with occasional ventricular paced rhythm rate of 96: Attestation: I personally reviewed and interpreted this EKG as follows: Interpretation: Atrial Fibrillation Comments: Rate of 96 bpm, QRS durations 80 ms, there is no acute ST armando vation, no acute infarct noted. Treatment and Re-Evaluation :: Patient's appears well, patient appears nontoxic, vital signs are stable. Presenting to the emergency department with complaints of dizziness, feeling of lightheadedness when performing activities. Differential diagnose includes cardiac arrhythmia, ACS, AK, neuro symptomatology. Patient also has history of fever over the last 24 hours, could also be viral infection. Patient received a full work-up, including 2 sets of troponins, chest x-ray, patient was given 1 L of normal saline. Patient will receive orthostatic vital signs by nursing staff prior to administration concerning for orthostatic hypotension. Dehydration is also in the differential. On reevaluation, the patient's vital signs remained stable. Patient was ambulatory, he states that he felt slightly unbalanced when he turned however he was able to walk without any difficulty. Patient's laboratory values showed slight leukopenia with a white blood count 3.4. Patient's PT/INR was within normal limits. Patient's creatinine is 1.26, this is slightly elevated from his previous. proBNP was 119 Demi slightly elevated. At this time, patient did receive a chest x-ray interpreted by the ER physician which showed stable chest with no acute findings. Rapid COVID and flu were negative. Patient responded well to IV fluids. EKG was unremarkable, no evidence of any ACS, AK. Patient's troponin was negative. At this time, patient be diagnosed with dehydration, orthostatic hypotension. Instructed to maintain hydration, and to return here for any worsening dizziness, fever chills nausea vomiting. <Dr. Obie Adler, DO - Last Filed: 05/01/23 15:18> [facility] Narrative Medical decision making narrative: Patient's appears well, patient appears nontoxic, vital signs are stable. Presenting to the emergency department with complaints of dizziness, feeling of lightheadedness when performing activities. Differential diagnose includes cardiac arrhythmia, ACS, [place], neuro symptomatology. Patient also has history of fever over the last 24 hours, could also be viral infection. Patient received a full work-up, including 2 sets of troponins, chest x-ray, patient was given 1 L of normal saline. Patient will receive orthostatic vital signs by nursing staff prior to administration concerning for orthostatic hypotension. Dehydration is also in the differential. On reevaluation, the patient's vital signs remained stable. Patient was ambulatory, he states that he felt slightly unbalanced when he turned however he was able to walk without any difficulty. Patient's laboratory values showed slight leukopenia with a white blood count 3.4. Patient's PT/INR was within normal limits. Patient's creatinine is 1.26, this is slightly elevated from his previous. proBNP was 119 Demi slightly elevated. At this time, patient did receive a chest x-ray interpreted by the ER physician which showed stable chest with no acute findings. Rapid COVID and flu were negative. Patient responded well to IV fluids. EKG was unremarkable, no evidence of any ACS, AK. Patient's troponin was negative. At this time, patient be diagnosed with dehydration, orthostatic hypotension. Instructed to maintain hydration, and to return here for any worsening dizziness, fever chills nausea vomiting. This patient was seen with a PA/[employer] AMBASSADOR Individually assessed they patient including history and physical. I have reviewed everything on the chart that is available and agree with the documentation provided by the PA/[employer] AMBASSADOR including discussion about the assessment, treatment plan, discussion, and return precautions. 77-year-old male presenting with lightheadedness and feeling dizzy. Differential as above. Is also a concern of a viral syndrome. Complete work-up including delta troponin, COVID/influenza, lab work all fairly unremarkable. Patient initially orthostatic but after fluids was not. He felt improved. He was ambulated. Chest x-ray on my interpretation shows no acute process. EKG on my interpretation shows a normal sinus rhythm ventricular 96 bpm without sign of ischemic change or dysrhythmia. At this point since he is feeling better we will have him discharged home. He can follow-up with his PCP to ensure resolution. Precautions discussed Lab Data Labs: Laboratory Results - last 24 hr 04/27/23 13:11 WBC 3.4 L RBC 4.82 Hgb 14.0 Hct 43.3 MCV 89.8 MCH 29.0 MCHC 32.3 RDW Std Deviation 40.5 RDW Coeff of [place] 12.3 Plt Count 141 L MPV 8.6 Immature Gran % (Auto) 0.600 Neut % (Auto) 82.3 H Lymph % (Auto) 9.6 L [place] % (Auto) 7.2 Eos % (Auto) 0.0 Baso % (Auto) 0.3 Absolute Neuts (auto) 2.8 Absolute Lymphs (auto) 0.32 L Nucleated RBC % 0 Radiography Diagnostic Testing: Clinical Impression(s) from Imaging Studies Chest X-Ray 04/27/23 12:42 IMPRESSION: Stable chest with no acute superimposed finding. Electronically Signed: Torin Parra MD at 12:58 EST Reading Location ID and State: [address] [place] [address] , Service support , Discharge Plan Triage Chief Complaint: Dizziness ED Midlevel Provider: Eliecer Zhou ED Provider: Obie Adler Dx/Rx/DC Orders Clinical Impression: Orthostatic hypotension, Dehydration Instructions: ED Dehydration (Adult), ED Hypotension, Orthostatic Prescriptions: New meclizine 25 mg tablet 25 mg PO BID PRN (Reason: dizziness) Qty: 14 0RF No Action aspirin 81 mg tablet,delayed release (DR/EC) 81 mg PO DAILY metformin 500 MG tablet 1,000 mg PO BIDCM Patient Comments: CONTROLS BLOOD SUGAR simvastatin 40 mg tablet 40 mg PO QHS Qty: 90 3RF Xarelto 20 mg tablet 20 mg PO QPM Qty: 90 4RF Rx Instructions: must administer with evening meal Primary Care Provider: Mele Salas Referrals: Mele Salas MD [Primary Care Provider] - Activity Restrictions/Additional Instructions: You have Antivert for the dizziness, if it gets worse, you need to return to the emergency department Disposition Disposition: Home, Self Care Discharge Date/Time: 04/27/23 15:46
[2023-04-27] MEDS: 0.9% Normal Saline (1000mL) 1,000 ML 1000 ML IV (12:39)
--- NOTE | 2023-04-27 12:42 | RAD_ITS ---
STUDY: X-RAY CHEST REASON FOR EXAM: Male, 77 years old. Chest pain. TECHNIQUE: Single frontal view of the chest. COMPARISON: September 03, 2018. FINDINGS: Low volume inspiration. There is no demonstrated pleural abnormality. Cardiomegaly with dual lead cardiac pacer unchanged. Normal mediastinum and jerod. Normal visualized pulmonary arteries. Stable aortic tortuosity with calcification. Normal visualized thoracic spine. Normal visualized ribs, clavicles, and shoulders. No abnormality of the visualized soft tissue structures of the upper abdomen. RAD/Chest 1 View (Portable) IMPRESSION: Stable chest with no acute superimposed finding. Electronically Signed: Torin Parra MD at 12:58 EST ,
[2023-04-27 12:47] VITALS: BP 115/79; BP 88/64; PULSE 103; PULSE 90
[2023-04-27 13:22] LABS: Absolute Lymphocyte Count 0.32 X10^3/uL (0.83-4.51); Absolute Neutrophil Count 2.8 X10^3/uL (2.0-7.7); Basophil# 0.01 X10^3/uL; Basophil% 0.3 % (0-1); Hematocrit 43.3 % (40-54); Lymphocyte # 0.32 X10^3/ul (0.83-4.51); Lymphocyte % 9.6 % (19-41); Mean Corp Hgb Conc 32.3 g/dL (32-36); Mean Corpuscular Volume 89.8 fL (80-94); Mean Platelet Vol. 8.6 fl (6.2-12.0); Monocyte# 0.24 X10^3/uL; Monocyte% 7.2 % (0-10); NRBC Flagged by Analyzer 0 % (0-5); Neutrophil # 2.76 X10^3/uL (2.7-7.7); Neutrophil % 82.3 % (47-70); POSITIVE DIFFERENTIAL YES; Platelet Count 141 K/mm3 (150-450); RBC Distribution Width CV 12.3 % (11.6-14.6); RBC Distribution Width SD 40.5 fl (35.1-43.9); Red Blood Count 4.82 M/mm3 (4.6-6.2); White Blood Count 3.4 K/mm3 (4.4-11.0)
[2023-04-27 13:23] LABS: Differential Indicated SCAN CRITERIA MET
[2023-04-27 13:37] LABS: International Normalized Ratio 1.2; Prothrombin Time (Protime)PT. 15.5 SECONDS (11.7-14.9)
[2023-04-27 13:39] LABS: Anion Gap 5 (5-15); BUN 23 mg/dL (7-18); BUN/Creat Ratio 18.3 RATIO (10-20); Calcium,Total 8.2 mg/dL (8.5-10.1); Chloride 107 mmol/L (98-107); Creatinine, Serum 1.26 mg/dL (0.70-1.30); EST Glomerular Filtration Rate 59 mL/min (>60); Est Glom Filt Rate - Afr Amer 72 mL/min (>60); Estimated Creatinine Clearance 49.88 ml/min; Glucose 139 mg/dL (74-106); Potassium 4.2 mmol/L (3.5-5.1); Sodium Level 139 mmol/L (136-145); Troponin-I HS (w/2H Reflex) 12 pg/mL (3.0-78.0)
[2023-04-27 13:43] LABS: BNP,B-Type NATRIURETIC PEPTIDE 119.5 pg/mL (0-100)
[2023-04-27 14:51] VITALS: BP 109/67; BP 134/76; BP 136/70; PULSE 84
[2023-04-27 15:17] LABS: Reflex Troponin-HS? (from REC) Y
[2023-04-27 15:30] VITALS: BP 112/70; PULSE 65; O2SAT 99
[2023-04-29 15:20] LABS: Pathologist Review Reviewed
== END 2023-04-27 15:46 | disposition home or self-care (01) ==
PROVIDERS: Nurse Practitioner; Emergency Provider Student in an Organized Health Care Education/Training Program; PCP Internal Medicine; Visit Provider Student in an Organized Health Care Education/Training Program
DX: R42 Dizziness and giddiness (principal); I48.0 Paroxysmal atrial fibrillation; E11.9 Type 2 diabetes mellitus without complications; E86.0 Dehydration; I95.1 Orthostatic hypotension; E78.5 Hyperlipidemia, unspecified; I25.10 Atherosclerotic heart disease of native coronary artery without angina pectoris; I10 Essential (primary) hypertension; Z79.01 Long term (current) use of anticoagulants; Z95.0 Presence of cardiac pacemaker; Z79.84 Long term (current) use of oral hypoglycemic drugs; Z79.82 Long term (current) use of aspirin; Z79.899 Other long term (current) drug therapy; Z96.642 Presence of left artificial hip joint; Z95.5 Presence of coronary angioplasty implant and graft
CPT/HCPCS: 71045; 80048; 83880; 84484; 85025; 85610; 87428; 93005; 99284; J7030; A4216

== ENCOUNTER 2023-12-11 08:19 | Emergency (ER) | payer MEDICARE, SELFPAY ==
[2023-12-11 08:20] VITALS: BP 155/89; PULSE 71; RESP 20; TEMP 35.9; O2SAT 100; BMI 28.8
--- NOTE | 2023-12-11 08:30 | EKG12_ITS ---
Test Reason : CP/SOB Blood Pressure : / mmHG Vent. Rate : 068 BPM Atrial Rate : 068 BPM P-R Int : 162 ms QRS Dur : 078 ms QT Int : 412 ms P-R-T Axes : 092 072 -25 degrees QTc Int : 438 ms Normal sinus rhythm Nonspecific T wave abnormality Abnormal ECG Confirmed by JEAN FERRER, SHAI ([id number]), publication editor XI CHOI ([id number]) on 12/16/2023 10:46:06 A M Referred By: CONSUELO Confirmed By:JOSE FRANCISCO PENA MD
--- NOTE | 2023-12-11 08:30 | ED.VIS.CHEST ---
HPI History of Present Illness Chief Complaint: Chest Pain Detail of Chief Complaint: Chest pain and exertional dyspnea Informant: patient Narrative Narrative: Patient presents with complaint of chest discomfort and exertional dyspnea. Patient states that symptoms have been going on for about a month. This morning he tried to walk and could not get very far and felt short of breath and had some chest discomfort. Patient called his teacher counselor and was advised to come to the emergency department. Currently he denies any chest discomfort. When he does get the chest discomfort it feels like a throbbing in his chest. Denies nausea or vomiting with it. He denies recent travel or surgery. He does take Xarelto for history of A-fib. He has had prior stent placement for 5 years ago and pacemaker placement. He has not had open heart surgery. Patient states that symptoms have been getting worse and worse over the last month. 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 Osteoarthritis Osteoarthritis of left hip Paroxysmal atrial flutter Pre-syncope Shortness of breath Syncope and collapse Unstable angina Home Medications ?Medication ?Instructions ?Recorded ?Last Taken ?Type metformin 500 mg tablet 1,000 mg PO BIDCM 05/02/17 12/11/23 History aspirin 81 mg tablet,delayed 81 mg PO DAILY 07/13/17 12/11/23 History release rivaroxaban 20 mg tablet (Xarelto) 20 mg PO QPM #30 tabs 10/09/23 12/10/23 Rx atorvastatin 40 mg tablet 40 mg PO QHS cholesterol 12/11/23 12/10/23 History isosorbide mononitrate 30 mg 30 mg PO DAILY #30 tabs 12/11/23 Unknown Rx tablet,extended release 24 hr metoprolol tartrate 25 mg tablet 25 mg PO BID #30 tabs 12/11/23 Unknown Rx sildenafil 100 mg tablet 100 mg PO DAILY PRN ed 12/11/23 Unknown History Allergy/AdvReac Type Severity Reaction Status Date / Time apixaban (From Eliquis) AdvReac Severe severe Verified 12/11/23 08:19 diarrhea amlodipine AdvReac dizziness Verified 12/11/23 08:19 Family History (Updated 10/09/23 @ 16:08 by Sisi Wyatt) Father CAD (coronary artery disease) Other Paroxysmal atrial flutter Shortness of breath Surgical History H/O umbilical hernia repair History of left heart catheterization (09/10/18) History of left hip replacement History of placement of stent in LAD coronary artery (10/05/13) History of prostate surgery History of transurethral resection of prostate Presence of cardiac pacemaker (12/17/15) Social History Smoking Status: Never smoker alcohol intake: never substance use type: does not use caffeine: No what type of physical activity do you participate in: none seatbelt use: always do you feel safe at home: Yes ROS ROS ED Review of Systems ROS Unobtainable: other Constitutional Constitutional ED: Reports lethargy; Denies chills, fever(s), sweats or weight loss Eyes Eyes: Denies blurry vision, change in vision or diplopia ENT ENT ED: Denies rhinorrhea or sore throat Cardiovascular Cardiovascular: Reports chest pain; Denies orthopnea or racing heartbeat Respiratory/Chest Respiratory/Chest: Reports dyspnea and dyspnea on exertion; Denies cough, orthopnea or sputum Gastrointestinal Gastrointestinal: Denies abdominal pain, diarrhea, nausea or vomiting Genitourinary Genitourinary ED: Denies dysuria, hematuria or urinary frequency Musculoskeletal Musculoskeletal: Denies arthralgias, back pain, myalgias or neck pain Integumentary Denies abscess, Abrasions or rash Neurologic Neurologic: Denies headache(s) or weakness Psychiatric Psychiatric: Denies anxiety, depression or suicidal thoughts Endocrine Endocrinology: Denies polydipsia, polyphagia or polyuria Hematologic/Lymphatic Hematologic/Lymphatic: Denies easy bleeding, easy bruising or lymphadenopathy Allergic/Immunologic Allergic/Immunologic ED: Denies mouth swelling, tongue swelling or urticaria EXAM Physical Exam Const Vital Signs: 12/11/23 08:20 12/11/23 08:30 12/11/23 08:36 Temperature 96.6 F L Temperature Source Temporal Pulse Rate 71 Respiratory Rate 20 H Respiratory Effort Normal Non-Labored Blood Pressure 155/89 H Blood Pressure Mean 111 Pulse Ox 100 Oxygen Delivery Method Room Air 07/12/24 09:19 12/11/23 10:00 12/11/23 11:00 Temperature Temperature Source Pulse Rate 61 60 66 Respiratory Rate 16 15 20 H Respiratory Effort Blood Pressure 120/79 123/76 H 107/77 Blood Pressure Mean 92 91 87 Pulse Ox 97 96 95 Oxygen Delivery Method Room Air Room Air Room Air Positive well nourished and well developed General Appearance ED: well developed and NAD HEENT Reports TM's clear and moist mucous membranes normocephalic and atraumatic; Negative for trauma or tenderness Tympanic Membrane ED: Yes TM's clear Eyes PERRL and EOMs intact bilaterally General Eye ED: Negative for pale conjunctiva or scleral icterus Neck no lymphadenopathy, supple and no JVD General: Negative for tenderness Chest Wall inspection of chest normal and palpation of chest normal Chest: Negative for tenderness Resp normal respiratory effort and clear to auscultation bilaterally Effort and Inspection: Negative for respiratory distress or pain with movement Auscultation: Negative for rhonchi, wheezes or diminished lung sounds Cardio regular rate, regular rhythm, S1 normal heart sound, S2 normal heart sound and no murmurs Peripheral Pulses: pulses 2+ throughout GI normal to inspection, nondistended, normoactive bowel sounds, soft to palpation, non-tender, non-distended and no masses Back/Spine no CVA tenderness and no thoracic nor lumbar tenderness Extremity normal to inspection General Extremety ED: Negative for edema General Extremity: Negative for edema Neuro oriented x3, CN's II-XII intact bilaterally, no sensory deficits noted and gait normal Sensorium / Orientation: awake, alert, oriented to person, oriented to place and oriented to time Motor Exam: strength 5/5 throughout and strength abnormal Psych mental status grossly normal Skin no rashes or lesions noted and no wounds Heart Score History: Moderately Suspicious ECG: Nonspecific Repolarization Age: >/= 65 years Risk Factors: >/= 3 Risk Factors or History of CAD Troponin: </= Normal Limit Score: 6 MDM MDM MDM Narrative Medical decision making narrative: Patient presents to the emergency department with exertional dyspnea and chest pain. Known history of coronary artery disease. In the differential would be unstable angina versus anemia or infectious etiology or PE which I feel is less likely as patient currently on Xarelto and has been compliant with his medications. Currently not having symptoms. IV line established on arrival. Patient placed on monitoring specialist. EKG obtained showed a sinus rhythm with rate of [address] changes. CBC with differential white count 6.2 with hemoglobin 14 and platelet count 205. Chemistries unremarkable. First troponin was normal at 11. Chest x-ray unremarkable. Discussed case with teacher counselor on-call Dr. Velasquez and also discussed with hospitalist. Initial plan was to admit the patient and discontinue his Xarelto and heart cath in 3 days. Patient was seen by hospitalist in the department and patient does not want to be admitted for 3 days but would like to go home and have outpatient heart cath scheduled. Patient also seen by teacher counselor in the emergency department as well. Patient understands risks of outpatient follow-up and that he could in the meantime have an acute coronary syndrome. Patient I was asked to start on metoprolol as well as Imdur and he is to discontinue his Xarelto 2 days prior to his heart cath scheduling. The scheduling office will call back with a date for his heart cath. Patient as well as cardiology and hospitalist comfortable with plan moving forward. Patient advised to return if worsening pain, increasing shortness of breath, or condition should worsen anyway. Lab Data Attestation: I reviewed the patient's lab results. Labs: Laboratory Results - last 24 hr 12/11/23 12/11/23 08:25 10:37 WBC 6.2 RBC 4.92 Hgb 14.3 Hct 42.7 MCV 86.8 MCH 29.1 MCHC 33.5 RDW Std Deviation 39.7 RDW Coeff of Daquan 12.6 Plt Count 205 MPV 8.8 Immature Gran % (Auto) 0.500 Neut % (Auto) 71.7 H Lymph % (Auto) 20.2 Sierra % (Auto) 5.9 Eos % (Auto) 1.4 Baso % (Auto) 0.3 Absolute Neuts (auto) 4.5 Absolute Lymphs (auto) 1.26 Nucleated RBC % 0 Sodium 138 Potassium 4.3 Chloride 108 H Carbon Dioxide 25.0 Anion Gap 5 BUN 24 H Creatinine 1.44 H Estim Creat Clear Calc 47.31 Est GFR (MDRD) Af Amer 61 Est GFR (MDRD) Non-Af 51 L BUN/Creatinine Ratio 16.7 Glucose 232 H Calcium 9.2 Troponin I High Sens 11 9 Radiography Diagnostic Testing: Clinical Impression(s) from Imaging Studies Chest X-Ray 12/11/23 08:36 IMPRESSION: No acute abnormality is seen. Electronically Signed: Mateusz Alexandra MD at 8:57 EDT , Discharge Plan Triage Chief Complaint: Chest Pain ED Provider: Shanna Nolasco Dx/Rx/DC Orders Clinical Impression: Chest pain, Exertional dyspnea Instructions: ED Chest Pain, Uncertain Cause, ED Dyspnea Prescriptions: New isosorbide mononitrate 30 mg tablet extended release 24 hr 30 mg PO DAILY Qty: 30 0RF metoprolol tartrate 25 mg tablet 25 mg PO BID Qty: 30 0RF No Action aspirin 81 mg tablet,delayed release (DR/EC) 81 mg PO DAILY metformin 500 MG tablet 1,000 mg PO BIDCM Patient Comments: CONTROLS BLOOD SUGAR atorvastatin 40 mg tablet 40 mg PO QHS sildenafil 100 mg tablet 100 mg PO DAILY PRN (Reason: ed) Xarelto 20 mg tablet 20 mg PO QPM Qty: 30 6RF Rx Instructions: must administer with evening meal Primary Care Provider: Mele Salas Referrals: Carlos Velasquez MD [Med Staff - Active Staff] - Keep Nazario appointment Mele Salas MD [Primary Care Provider] - Activity Restrictions/Additional Instructions: Discontinue your Xarelto medication 2 days before the date of your heart catheterization. Do not take Viagra. Print Language: Syrian Disposition Disposition: Home, Self Care
--- NOTE | 2023-12-11 08:36 | RAD_ITS ---
STUDY: X-RAY CHEST REASON FOR EXAM: Male, 78 years old. Chest pain TECHNIQUE: Single AP portable view of the chest. COMPARISON: Comparison is made with prior study dated April 27, 2023. FINDINGS: EKG electrodes are seen. There is elevation of the left hemidiaphragm. There is no demonstrated pleural abnormality. Normal size heart. A left-sided dual-chamber pacemaker is seen. Normal mediastinum and jerod. Normal visualized pulmonary arteries. There is atherosclerotic tortuosity of the aortic arch and descending thoracic aorta. Normal visualized thoracic spine. Normal visualized ribs, clavicles, and shoulders. There is no demonstrated abnormality of the visualized soft tissue structures of the upper abdomen. RAD/Chest 1 View (Portable) IMPRESSION: No acute abnormality is seen. Electronically Signed: Mateusz Alexandra MD at 8:57 EDT ,
[2023-12-11 08:43] LABS: Absolute Lymphocyte Count 1.26 X10^3/uL (0.83-4.51); Absolute Neutrophil Count 4.5 X10^3/uL (2.0-7.7); Basophil# 0.02 X10^3/uL; Basophil% 0.3 % (0-1); Eosinophil# 0.09 X10^3/uL; Eosinophils% 1.4 % (0-5); Hematocrit 42.7 % (40-54); Hemoglobin 14.3 g/dL (13.0-16.5); Lymphocyte # 1.26 X10^3/ul (0.83-4.51); Lymphocyte % 20.2 % (19-41); Mean Corp Hgb Conc 33.5 g/dL (32-36); Mean Corpuscular Hgb 29.1 pg (27.0-32.0); Mean Corpuscular Volume 86.8 fL (80-94); Mean Platelet Vol. 8.8 fl (6.2-12.0); Monocyte# 0.37 X10^3/uL; Monocyte% 5.9 % (0-10); NRBC Flagged by Analyzer 0 % (0-5); Neutrophil # 4.46 X10^3/uL (2.7-7.7); Neutrophil % 71.7 % (47-70); Platelet Count 205 K/mm3 (150-450); RBC Distribution Width CV 12.6 % (11.6-14.6); RBC Distribution Width SD 39.7 fl (35.1-43.9); Red Blood Count 4.92 M/mm3 (4.6-6.2); White Blood Count 6.2 K/mm3 (4.4-11.0)
[2023-12-11 08:53] LABS: Anion Gap 5 (5-15); BUN 24 mg/dL (7-18); BUN/Creat Ratio 16.7 RATIO (10-20); Calcium,Total 9.2 mg/dL (8.5-10.1); Chloride 108 mmol/L (98-107); Creatinine, Serum 1.44 mg/dL (0.70-1.30); EST Glomerular Filtration Rate 51 mL/min (>60); Est Glom Filt Rate - Afr Amer 61 mL/min (>60); Estimated Creatinine Clearance 47.31 ml/min; Glucose 232 mg/dL (74-106); Potassium 4.3 mmol/L (3.5-5.1); Sodium Level 138 mmol/L (136-145); Troponin-I HS (w/2H Reflex) 11 pg/mL (3.0-78.0)
[2023-12-11 09:19] VITALS: BP 120/79; PULSE 61; RESP 16; O2SAT 97
--- NOTE | 2023-12-11 09:54 | PCM.HOSP.N ---
Hospitalist Note Patient was seen and examined in the emergency room. I was paged to admit the patient for chest pain, the ER physician (Dr. Domínguez) had talked with (cardiology), he recommended the patient be admitted and undergo a cardiac catheterization on Thursday. Patient's cardiac enzymes were not elevated, his EKG did not show an injury pattern. I went over this plan with the patient, he prefers not to stay in the hospital over the weekend and he prefers to have a heart catheterization done as an outpatient. I then called Dr. Velasquez back, he saw the patient in the emergency room and recommended the patient be placed on metoprolol 25 mg twice daily and Imdur 30 mg daily which I relayed to Dr. Domínguez. Patient was also instructed to stop his Xarelto after today. Dr. Velasquez called his office to arrange for the patient to have a cardiac catheterization next week, the office will call the emergency room physician (Dr. Domínguez) and give him the details when the procedure is scheduled.
[2023-12-11 10:00] VITALS: BP 123/76; PULSE 60; RESP 15; O2SAT 96
[2023-12-11 10:34] LABS: Reflex Troponin-HS? (from REC) Y
[2023-12-11 11:00] VITALS: BP 107/77; PULSE 66; RESP 20; O2SAT 95
[2023-12-11 11:06] LABS: Troponin-I HS 9 pg/mL (3.0-78.0)
== END 2023-12-11 11:24 | disposition home or self-care (01) ==
PROVIDERS: Emergency Provider Emergency Medicine; PCP Internal Medicine; Visit Provider Emergency Medicine
DX: R07.9 Chest pain, unspecified (principal); E11.9 Type 2 diabetes mellitus without complications; I25.10 Atherosclerotic heart disease of native coronary artery without angina pectoris; I10 Essential (primary) hypertension; E78.5 Hyperlipidemia, unspecified; R06.00 Dyspnea, unspecified; Z95.5 Presence of coronary angioplasty implant and graft; Z95.0 Presence of cardiac pacemaker
CPT/HCPCS: 71045; 80048; 84484; 85025; 93005; 99284; A4216

== ENCOUNTER 2023-12-14 09:36 | Day surgery (SDC) | payer MEDICARE, SELFPAY ==
[2023-12-11 11:10] VITALS: BMI 29.7
--- NOTE | 2023-12-11 14:24 | CON.PCM.CA_ITS ---
Assessment & Plan Assessment/Plan (1) Chest pain: QUALIFIERS: Chest pain type: unspecified Qualified Code(s): R07.9 - Chest pain, unspecified PLAN: This chest pain is concerning for unstable angina. Recommended that the patient stay in the hospital and have coronary angiogram on Thursday. We could not do the angiogram today as patient is on Xarelto. Patient preferred to go home and come back as an outpatient for this procedure. We were able to arrange the angiogram for next Thursday. Patient was advised to hold Xarelto for 2 days. He was advised to come back to the emergency room if his symptoms worsen. Explained the risks and benefits in detail to the patient. Plan is to go ahead with coronary angiography on Thursday as an outpatient. Will start the patient on Imdur and metoprolol. He was advised not to take sildenafil. HPI Consult Data Date of Consult: 12/11/23 HPI Narrative Reason for Consultation: Chest pain HPI Narrative: JOYCE JAIME, is a 78 M who presents with exertional chest pain that has been going on for about 1 month. Patient's high-sensitivity troponin x 2 has been negative. He currently does not have any chest pain. Chest pain is mainly on exertion. [facility] Medical History Atherosclerotic heart disease of [place] coronary artery without angina pectoris Bladder stones BPH (benign prostatic hypertrophy) BPH with obstruction/lower urinary tract symptoms Dizziness Essential hypertension History of non-insulin dependent diabetes mellitus Hyperlipidemia Hypertension Incomplete AV heart block group home use of drug Osteoarthritis Osteoarthritis of left hip Paroxysmal atrial flutter Pre-syncope Shortness of breath Syncope and collapse Unstable angina Home Medications ?Medication ?Instructions ?Recorded ?Last Taken ?Type metformin 500 mg tablet 1,000 mg PO BIDCM 05/02/17 12/11/23 History aspirin 81 mg tablet,delayed 81 mg PO DAILY 07/13/17 12/11/23 History release rivaroxaban 20 mg tablet (Xarelto) 20 mg PO QPM #30 tabs 10/09/23 12/10/23 Rx atorvastatin 40 mg tablet 40 mg PO QHS cholesterol 12/11/23 12/10/23 History isosorbide mononitrate 30 mg 30 mg PO DAILY #30 tabs 12/11/23 Unknown Rx tablet,extended release 24 hr metoprolol tartrate 25 mg tablet 25 mg PO BID #30 tabs 12/11/23 Unknown Rx sildenafil 100 mg tablet 100 mg PO DAILY PRN ed 12/11/23 Unknown History Allergy/AdvReac Type Severity Reaction Status Date / Time apixaban (From Eliquis) AdvReac Severe severe Verified 12/11/23 08:19 diarrhea amlodipine AdvReac dizziness Verified 12/11/23 08:19 Family History (Updated 10/09/23 @ 16:08 by Sisi Wyatt) Father CAD (coronary artery disease) Other Paroxysmal atrial flutter Shortness of breath Surgical History H/O umbilical hernia repair History of left heart catheterization (09/10/18) History of left hip replacement History of placement of stent in LAD coronary artery (10/05/13) History of prostate surgery History of transurethral resection of prostate Presence of cardiac pacemaker (12/17/15) Social History Smoking Status: Never smoker alcohol intake: never substance use type: does not use caffeine: No what type of physical activity do you participate in: none seatbelt use: always do you feel safe at home: Yes Physical Exam Const alert and oriented x3 HEENT normocephalic Eyes no scleral icterus Resp normal respiratory effort Risk Stratification Risk Stratification Applicable: No Charges/Coding Visit Charges Inpatient E&M: 61098 Init Hosp L2 Objective Data Vital Signs: Weight: 201 lb Body Mass Index (BMI) 29.7 Cardiology Labs/Tests Rhythm: EKG: ECHO: Stress Test: Cardiac Cath: PCI: CT Surgery: Holter monitor: EPS: PPM: CXR: Chest CT Scan:
--- NOTE | 2023-12-14 15:20 | CL.D_ITS ---
Patient Name: JOYCE JAIME Study Date: 12/14/2023 Performing: Nimesh Velasquez MD Ht: 69 inches 175.26 cm : 1945 Wt: 201.3 lbs 91.17 kg Age: 78 Gender: male BSA: 2.07 PROCEDURE(S) PERFORMED [id number]-([id number])[facility] CLINICAL PROFILE AND INDICATIONS Indications: ACS <= 24 hrs Heart Failure: None CONCLUSIONS Coronary artery disease as described. No significant aortic stenosis. RECOMMENDATIONS Maximal medical therapy for coronary artery disease. Imdur was started recently. If patient continues to have angina then Ranexa could be added. DESCRIPTION OF PROCEDURE The patient arrived to the procedure lab. The risks and benefits of the procedure as well as a full description of our services here and current unavailability of surgical backup were fully explained to the patient and/or their significant other prior to the catheterization. The Timeout was completed, verifying the correct patient and procedure. The patient's procedural site was prepped and draped in the usual fashion. Local anesthetic was given subcutaneously to right radial region with Lidocaine 2%. Using a modified Seldinger technique, arterial access was obtained via the right radial artery, a 6Fr sheath was inserted. Left Coronary Artery selective angiography was performed in multiple views using a 5 Fr. JL3.5 catheter. LV to AO pullback pressures were then recorded. Right Coronary Artery selective angiography was then performed in multiple views using a 5 Fr. JR 4 catheter.The arterial sheath was pulled and a TR Band was applied for hemostasis w/ 10ml air CORONARY ANGIOGRAPHY DOMINANCE: Right Dominant Compared to 2019, angiography findings have changed minimally. Patient stenoses are best treated medically. LEFT MAIN: Mild luminal irregularities LEFT ANTERIOR DESCENDING ARTERY: 80% stenosis in the apical portion of the LAD. Widely patent stent in the proximal LAD. There is a small diameter but long diagonal branch that is jailed by prior LAD stent. This diagonal branch has an 80% stenosis in the proximal portion. 90% ostial stenosis in a small sidebranch of the diagonal branch.There is a septal resource paraprofessional that is occluded and fills via collaterals from the right. CIRCUMFLEX ARTERY: PROX CIRC: 30 % Stenosis MID CIRC: 100 % Stenosis RIGHT CORONARY ARTERY: 30% mid RCA, 25% ostial RCA COMPLICATIONS No Complications PROCEDURE MEDICATIONS Versed 1 mg IV Fentanyl 50 mcg IV Oxygen: 2 L/min via nasal cannula Heparin given IA 12/14/2023 10:44:51 Verapamil 2.5mg, Ntg 100mcgs, 3000 units of Heparin given IA 12/14/2023 10:44:51 SUMMARY OF HEMODYNAMIC DATA Time AIR REST ECG 09:55:47 AIR REST 10:00:34 AIR REST AO 85/58 (71) SA 10:48:27 LV 132/2, 19 10:59:26 LV 144/2, 21 10:59:32 LVp 136/6, 21 10:59:49 AOp 130/66 (90) 10:59:55 AO 110/55 (80) 11:00:50 Signed By Nimesh Velasquez MD On 12/14/2023 15:19:21 Nimesh Velasquez MD
== END 2023-12-14 12:48 | disposition home or self-care (01) ==
PROVIDERS: PCP Internal Medicine; Referring Provider Specialist; Visit Provider Specialist
DX: I25.10 Atherosclerotic heart disease of native coronary artery without angina pectoris (principal); E11.9 Type 2 diabetes mellitus without complications; R07.9 Chest pain, unspecified; Z95.5 Presence of coronary angioplasty implant and graft; Z79.01 Long term (current) use of anticoagulants; I10 Essential (primary) hypertension; E78.5 Hyperlipidemia, unspecified; Z79.899 Other long term (current) drug therapy
CPT/HCPCS: 93454; 99152; 99153; J7040; Q9967; C1769; C1894

== ENCOUNTER 2024-03-07 10:36 | Day surgery (SDC) | payer MEDICARE, SELFPAY ==
[2024-03-01 11:05] LABS: Bacteria 0 SEEN /hpf (None Seen); Mucous, Urine 0 SEEN /hpf (<or=2+); Red Blood Cells-Urine 0 SEEN /hpf (0-5); Squamous Epithelial Cells - UA 0 SEEN /hpf (0-5); White Blood Cells 0 SEEN /hpf (0-5)
--- NOTE | 2024-03-01 11:39 | RAD_ITS ---
HISTORY: For PPM generator change. TECHNIQUE: XR Chest 2 Views. COMPARISON: 12/11/2023. FINDINGS: CARDIOMEDIASTINAL BORDERS: Cardiac silhouette within normal limits in size with pacemaker generator again seen in the chest wall and leads in the right atrium and right ventricle. Mediastinal contour unremarkable. LUNGS: Radiographically clear. Chronic elevation of the left hemidiaphragm. PLEURA: No pleural effusion or pneumothorax seen. OSSEOUS STRUCTURES: Degenerative change. RAD/Chest PA and Lateral IMPRESSION: No acute cardiopulmonary process identified. Electronically Signed: Whitney Amador MD at 13:23 EDT ,
[2024-03-01 12:13] LABS: Color, Urine Yellow (Yellow); Glucose, Dipstick 1000 mg/dl (Normal); Ketone-Dipstick Negative (Negative); Leukocyte Esterase-Dipstick Negative /ul (Negative); Nitrite-Dipstick Negative (Negative); Occult Blood-Urine Negative /ul (Negative); Protein-Dipstick 30 mg/dl (Negative); Urine Bilirubin Dipstick Negative (Negative); Urine Clarity Clear (Clear); Urine Urobilinogen Normal (Normal)
[2024-03-01 12:15] LABS: Hematocrit 44.4 % (40-54); Mean Corp Hgb Conc 33.8 g/dL (32-36); Mean Corpuscular Hgb 29.3 pg (27.0-32.0); Mean Corpuscular Volume 86.7 fL (80-94); Mean Platelet Vol. 8.9 fl (6.2-12.0); Platelet Count 166 K/mm3 (150-450); RBC Distribution Width CV 11.9 % (11.6-14.6); RBC Distribution Width SD 37.7 fl (35.1-43.9); Red Blood Count 5.12 M/mm3 (4.6-6.2); White Blood Count 5.2 K/mm3 (4.4-11.0)
[2024-03-01 12:20] LABS: International Normalized Ratio 1.3; Prothrombin Time (Protime)PT. 16.1 SECONDS (11.7-14.9)
[2024-03-01 12:32] LABS: Anion Gap 5 (5-15); BUN 19 mg/dL (7-18); BUN/Creat Ratio 17.3 RATIO (10-20); Calcium,Total 9.2 mg/dL (8.5-10.1); Chloride 104 mmol/L (98-107); EST Glomerular Filtration Rate 69 mL/min (>60); Est Glom Filt Rate - Afr Amer 83 mL/min (>60); Glucose 203 mg/dL (74-106); Potassium 4.4 mmol/L (3.5-5.1); Sodium Level 135 mmol/L (136-145)
[2024-03-01 12:54] LABS: BNP,B-Type NATRIURETIC PEPTIDE 76.3 pg/mL (0-100)
[2024-03-04 08:18] VITALS: BMI 29.0
--- NOTE | 2024-03-11 10:31 | CL.IE_ITS ---
Patient: JOYCE JAIME Study Date: 03/07/2024 Performing: Mark Machuca MD : 1945 Age: 78 Gender: male PROCEDURES PERFORMED [id number]-([id number])BATTERY REMOVAL+REPLACEMENT PACER-DUAL LEAD INDICATIONS Syncope End-of-life replacement indicator PROCEDURE DETAILS The patient was brought to the Catheterization Lab in the postabsorptive nonsedated state. Informed consent was obtained prior to the procedure. Local anesthetic was given subcutaneously to the left upper chest area with Lidocaine 2%. Incision was made to the left subclavicular area. PPM generator was removed. PPM generator was attached to the lead(s) and inserted into the pocket. Device pocket was irrigated with antibiotic-Ancef. Steri-strips applied to Lt chest area. The patient tolerated the procedure well. Estimated Blood Loss: 10 ml's IMPLANTED / EX-PLANTED DEVICES IMPLANTED DEVICE(S): PPM Generator - Butcher Supervisor: [employer], Model # [id number] , Serial # [id number] DEVICE PARAMETERS DEVICE PARAMETERS: Mode- DDDR Lower rate- 60 Upper rate- 130 CONCLUSIONS / RECOMMENDATIONS Device Conclusions: Successful implantation of a dual chamber pacemaker battery change and replacement PROCEDURE MEDICATIONS Fentanyl 25 mcg IV Versed 1 mg IV Oxygen: 2 L/min via nasal cannula Antibiotic given in appropriate timeframe. Ancef 2 Gm IV @ 03/07/2024 11:54:41 Signed By Mark Machuca MD On 03/11/2024 10:31:16 Mark Machuca MD
== END 2024-03-07 14:10 | disposition home or self-care (01) ==
PROVIDERS: Nurse Practitioner Family; PCP Internal Medicine; Referring Provider Internal Medicine Cardiovascular Disease; Visit Provider Internal Medicine Cardiovascular Disease
DX: R55 Syncope and collapse (principal); I48.92 Unspecified atrial flutter; Z95.0 Presence of cardiac pacemaker; I25.10 Atherosclerotic heart disease of native coronary artery without angina pectoris; Z95.5 Presence of coronary angioplasty implant and graft; I10 Essential (primary) hypertension; R06.09 Other forms of dyspnea; Z82.49 Family history of ischemic heart disease and other diseases of the circulatory system; E78.5 Hyperlipidemia, unspecified
CPT/HCPCS: 33228; 36415; 71046; 80048; 81001; 83880; 85027; 85610; 99152; 99153

== ENCOUNTER → 2024-04-22 | Outpatient (CLI) | payer MEDICARE, SELFPAY ==
[2024-04-22 11:37] LABS: Microalbumin:Creatinine Ratio 157.9 mg/g CRE (<30 mg/g CRE)
[2024-04-22 12:03] LABS: Hemoglobin A1c 9.1 % (3.8-5.6)
[2024-04-22 12:15] LABS: ALB/GLOB Ratio 1.1 RATIO (0.9-2.4); AST(SGOT) 20 U/L (15-37); Alanine Aminotransfer ALT/SGPT 24 U/L (16-61); Albumin, Serum 3.7 g/dL (3.2-5.0); Alkaline Phosphatase 91 U/L (45-117); Anion Gap 5 (5-15); BUN 19 mg/dL (7-18); BUN/Creat Ratio 14.5 RATIO (10-20); Calcium,Total 8.7 mg/dL (8.5-10.1); Chloride 104 mmol/L (98-107); Cholesterol 163 mg/dL (200); Creatinine, Serum 1.31 mg/dL (0.70-1.30); EST Glomerular Filtration Rate 56 mL/min (>60); Est Glom Filt Rate - Afr Amer 68 mL/min (>60); Globulin 3.5 g/dL (2.2-4.2); Glucose 193 mg/dL (74-106); High Density Lipoprotein 38 mg/dL; Potassium 4.4 mmol/L (3.5-5.1); Protein, Total 7.2 g/dL (6.4-8.2); Sodium Level 135 mmol/L (136-145); Triglycerides 104 mg/dL; Very Low Density Lipoprotein 21 mg/dL (5-40)
== END | disposition home or self-care (01) ==
LOC: LAB 10:48
PROVIDERS: PCP Internal Medicine; Referring Provider Nurse Practitioner Family; Visit Provider Nurse Practitioner Family
DX: I25.10 Atherosclerotic heart disease of native coronary artery without angina pectoris (principal); Z86.39 Personal history of other endocrine, nutritional and metabolic disease
CPT/HCPCS: 36415; 80053; 80061; 82043; 82570; 83036

== ENCOUNTER → 2024-05-18 | Outpatient (CLI) | payer MEDICARE, SELFPAY ==
--- NOTE | 2024-05-18 13:34 | ECHOCS_ITS ---
Reason For Study: Dyspnea/SOB Procedure This was a 2D Doppler, Color Flow transthoracic echocardiogram. The study was technically difficult. Contrast injection was performed. Exam performed in department. Left Ventricle Normal LV size. Left ventricular systolic function is normal. The left ventricular ejection fraction is 55 %. No regional wall motion abnormalities noted. Right Ventricle Normal RV size. ICD or pacer leads identified within the right ventricle. Normal systolic function. Mitral Valve Normal mitral valve. Aortic Valve Trisinus/trileaflet aortic valve. Great Vessels Normal aortic root. Pericardium/Pleural No pericardial effusion. Medication 22 gauge I.V. with prn adaptor inserted into right arm. Diluted definity 2ml given slow IV push to enhance endocardial definition. MMode/2D Measurements & Calculations RVDd: 3.4 cm Ao root diam: 3.4 cm LAV(MOD-bp): 63.5 ml LAV(MOD-bp) Indexed: 30.8 ml/m2 LAV(MOD-sp2): 58.2 ml LAV(MOD-sp4): 62.5 ml LVAd ap4: 25.2 cm2 SV(MOD-sp4): 23.8 ml SV(sp4-el): 25.5 ml LVLd ap4: 7.0 cm SI(MOD-sp4): 11.6 ml/m2 EDV(MOD-sp4): 72.0 ml EDV(sp4-el): 76.5 ml LVAs ap4: 19.9 cm2 LVLs ap4: 6.6 cm ESV(MOD-sp4): 48.2 ml ESV(sp4-el): 51.0 ml EF(MOD-sp4): 33.1 % EF(sp4-el): 33.4 % LA A4 area: 23.5 cm2 LA dimension(2D): 4.0 cm RA A4 area: 15.3 cm2 TAPSE: 1.7 cm Doppler Measurements & Calculations MV E max laureen: 106.3 cm/sec MV V2 max: 109.0 cm/sec Ao V2 max: 97.2 cm/sec MV max P.8 mmHg Ao max P.9 mmHg MV V2 mean: 57.7 cm/sec MV mean P.7 mmHg MV V2 VTI: 22.4 cm LV V1 max: 85.1 cm/sec PA V2 max: 80.7 cm/sec LV V1 max P.9 mmHg LV V1 mean P.7 mmHg LV V1 mean: 60.3 cm/sec LV V1 VTI: 15.7 cm ECHO/Echo Complete W/ Contrast Interpretation Summary Normal LV size. Left ventricular systolic function is normal. The left ventricular ejection fraction is 55 %. Contrast injection was performed. Ordering Physician: Gaurav Dia Referring Physician: Gaurav Dia Performed By: Mateo Yang RCS
== END | disposition home or self-care (01) ==
LOC: CVS 13:32
PROVIDERS: PCP Internal Medicine; Referring Provider Nurse Practitioner Family; Visit Provider Nurse Practitioner Family
DX: R06.09 Other forms of dyspnea (principal)
CPT/HCPCS: 93306; Q9957; A4216; C8929

== ENCOUNTER 2024-05-26 14:06 | Emergency (ER) | payer MEDICARE, SELFPAY ==
[2024-05-26 14:07] VITALS: BP 166/65; PULSE 57; RESP 16; TEMP 36.4; O2SAT 99; BMI 29.8
--- NOTE | 2024-05-26 16:33 | EKG12_ITS ---
Test Reason : Blood Pressure : */* mmHG Vent. Rate : 89 BPM Atrial Rate : * BPM P-R Int : * ms QRS Dur : 78 ms QT Int : 322 ms P-R-T Axes : * 57 -73 degrees QTcB Int : 391 ms Atrial fibrillation with occasional ventricular-paced complexes Nonspecific T wave abnormality Abnormal ECG Confirmed by LORIE FERRER, GLADYS ([id number]), assignment editor XI CHOI ([id number]) on 05/27/2024 9:44:50 AM Referred By: DAVON Confirmed By: GLADYS MELO MD
--- NOTE | 2024-05-26 16:33 | EX.ED.DYSGE1 ---
HPI History of Present Illness Chief Complaint: Other, Pain/Inj Informant: patient Narrative Narrative: 3 days of intermittent discomfort just left of sternum in his chest, and simultaneously in his anterior and left neck. No other discomfort or dyspnea or palpitations or syncope or diaphoresis. Does not seem to be exertional. No symptoms when he walks except for chronic dyspnea on exertion that is usually when he walks a bit of a distance. He states it occurs more often when he is lying down. If he sits up it helps. No arm discomfort. No numbness or tingling. No extremity weakness that is new. Has a history of a remote stent 7 or 8 years ago, no recent stress test, has a pacemaker and is on aspirin as well as Xarelto because of A-fib. 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 Pre-syncope Dizziness Osteoarthritis Unstable angina BPH (benign prostatic hypertrophy) Osteoarthritis of left hip History of non-insulin dependent diabetes mellitus Home Medications ?Medication ?Instructions ?Recorded ?Last Taken ?Type metformin 500 mg tablet 1,000 mg PO BIDCM 05/02/17 12/13/23 History aspirin 81 mg tablet,delayed 81 mg PO DAILY 07/13/17 12/14/23 History release atorvastatin 40 mg tablet 40 mg PO QHS cholesterol 12/11/23 12/10/23 History rivaroxaban 20 mg tablet (Xarelto) 20 mg PO QPM #30 tabs 12/21/23 03/05/24 Rx ranolazine 1,000 mg 1,000 mg PO BID #60 tabs 03/02/24 Unknown Rx tablet,extended release,12 hr metoprolol tartrate 25 mg tablet 25 mg PO BID #60 tabs 04/26/24 Unknown Rx Allergy/AdvReac Type Severity Reaction Status Date / Time apixaban (From Eliquis) AdvReac Severe severe Verified 05/05/24 13:46 diarrhea isosorbide AdvReac Severe Swollen Verified 05/26/24 15:02 throat, cannot swallow. amlodipine AdvReac dizziness Verified 05/05/24 13:46 Family History Father CAD (coronary artery disease) Other Paroxysmal atrial flutter Shortness of breath Surgical History History of transurethral resection of prostate History of left heart catheterization (09/10/18) History of prostate surgery H/O umbilical hernia repair History of left hip replacement History of placement of stent in LAD coronary artery (10/05/13) Presence of cardiac pacemaker (12/17/15) Social History household members: spouse Smoking Status: Never smoker alcohol intake: never substance use type: does not use caffeine: No what type of physical activity do you participate in: none seatbelt use: always do you feel safe at home: Yes ROS ROS ED Constitutional Constitutional ED: Denies chills or fever(s) Eyes Eyes: Denies change in vision or diplopia ENT ENT ED: Denies rhinorrhea or sore throat Cardiovascular Cardiovascular: Reports chest pain; Denies leg edema, lightheadedness, orthopnea, palpitations or syncope Respiratory/Chest Respiratory/Chest: Reports dyspnea on exertion; Denies cough, dyspnea or orthopnea Gastrointestinal Gastrointestinal: Denies abdominal pain, diarrhea, nausea or vomiting Genitourinary Genitourinary ED: Denies dysuria or hematuria Musculoskeletal Musculoskeletal: Reports neck pain; Denies back pain Integumentary Denies abscess or rash Neurologic Neurologic: Denies headache(s), paresthesias or weakness Psychiatric Psychiatric: Denies anxiety or suicidal thoughts EXAM Physical Exam Const Vital Signs: 05/26/24 14:07 05/26/24 16:24 05/26/24 16:50 Temperature 97.6 F L Temperature Source Oral Pulse Rate 57 L 77 Respiratory Rate 16 21 H Respiratory Effort Normal Non-Labored Respiratory Pattern Normal Blood Pressure 166/65 H 116/74 Blood Pressure Mean 98 88 Pulse Ox 99 Oxygen Delivery Method Room Air 05/26/24 16:50 Temperature Temperature Source Pulse Rate Respiratory Rate Respiratory Effort Respiratory Pattern Blood Pressure Blood Pressure Mean Pulse Ox 96 Oxygen Delivery Method Room Air Positive well nourished and well developed General Appearance ED: well developed and NAD HEENT Reports moist mucous membranes normocephalic and atraumatic Eyes PERRL and EOMs intact bilaterally Neck full ROM, no lymphadenopathy and supple Neck Narrative: Patient is able to reproduce his pain by turning his head to the right, contralaterally, and in addition he has tenderness throughout the distribution of the left sternocleidomastoid from the clavicle all the way to the mastoid process. Inspection of the area is normal. He has full range of motion of his neck without difficulty. No sign of mastoiditis. Resp normal respiratory effort and clear to auscultation bilaterally Cardio regular rate and regular rhythm GI non-tender and non-distended Auscultation: normoactive bowel sounds Palpation: soft Back/Spine no CVA tenderness General Back: other FROM Extremity normal to inspection General Extremety ED: Negative for edema, pulses abnormal or tenderness General Extremity: Negative for edema or pulses abnormal Neuro oriented x3, CN's II-XII intact bilaterally and no sensory deficits noted Sensorium / Orientation: awake and alert Motor Exam: strength 5/5 throughout Skin no rashes or lesions noted and no wounds MDM MDM MDM Narrative Medical decision making narrative: History and exam are more consistent with this being musculoskeletal than unstable angina. EKG, chest x-ray, labs along with a troponin were obtained, he often has discomfort all night and randomly throughout the day he is having discomfort right now, it is 4:30 PM so I do not think we need to different measurements of troponin if the first 1 is negative, which it is at 9. His heart score is 5, however this is mostly because of age and a history of a stent. I do not think he needs to be admitted given I am able to reproduce his pain with him using in my palpating the sternocleidomastoid muscle. Patient is reassured and discharged home with outpatient follow-up if his symptoms persist despite supportive care measures. He is already anticoagulated and has no specific risk factor, I do not think he needs a workup for pulmonary embolus. Lab Data Attestation: I reviewed the patient's lab results. Labs: Laboratory Results - last 24 hr 05/26/24 16:48 WBC 6.6 RBC 4.95 Hgb 14.6 Hct 43.7 MCV 88.3 MCH 29.5 MCHC 33.4 RDW Std Deviation 39.5 RDW Coeff of [place]qu[place] 12.3 Plt Count 228 MPV 9.0 Immature Gran % (Auto) 0.300 Neut % (Auto) 72.4 H Lymph % (Auto) 16.9 L [place] % (Auto) 8.9 Eos % (Auto) 1.2 Baso % (Auto) 0.3 Absolute Neuts (auto) 4.8 Absolute Lymphs (auto) 1.12 Nucleated RBC % 0 Sodium 138 Potassium 4.2 Chloride 104 Carbon Dioxide 26.0 Anion Gap 7 BUN 23 H Creatinine 1.13 Estim Creat Clear Calc 61.23 Est GFR (MDRD) Af Amer 81 Est GFR (MDRD) Non-Af 67 BUN/Creatinine Ratio 20.4 H Glucose 241 H Calcium 8.9 Troponin I High Sens 9 Radiography Diagnostic Testing: Clinical Impression(s) from Imaging Studies Chest X-Ray 05/26/24 16:55 IMPRESSION: Stable chest Electronically Signed: German Mccray MD at 17:33 EST Reading Location ID and State: [address] [place] [address] Tel , Service support , 1 view chest x-ray narrow mediastinum, no effusion or infiltrate on my interpretation Rhythm Strip Rhythm Strip: A-fib Rate: 90 Ectopy: PVC(s) EKG Initial EKG: Attestation: I personally reviewed and interpreted this EKG as follows: Interpretation: No Acute Injury Pattern, Atrial Fibrillation and Non-Specific ST Changes Discharge Plan Triage Chief Complaint: Other, Pain/Inj ED Provider: Jose Turner Dx/Rx/DC Orders Clinical Impression: Intermittent left-sided chest pain, Strain of sternocleidomastoid muscle Instructions: ED Chest Pain, Uncertain Cause, ED Neck Sprain or Strain Prescriptions: No Action aspirin 81 mg tablet,delayed release (DR/EC) 81 mg PO DAILY metformin 500 MG tablet 1,000 mg PO BIDCM Patient Comments: CONTROLS BLOOD SUGAR atorvastatin 40 mg tablet 40 mg PO QHS Xarelto 20 mg tablet 20 mg PO QPM Qty: 30 11RF Rx Instructions: must administer with evening meal ranolazine 1,000 mg tablet extended release 12 hr 1,000 mg PO BID Qty: 60 11RF metoprolol tartrate 25 mg tablet 25 mg PO BID Qty: 60 3RF Primary Care Provider: Mele Salas Referrals: Mele Salas MD [Primary Care Provider] - As soon as possible Print Language: [place] Disposition Disposition: Home, Self Care
[2024-05-26 16:50] VITALS: BP 116/74; PULSE 77; RESP 21; O2SAT 96
--- NOTE | 2024-05-26 16:55 | RAD_ITS ---
STUDY: X-RAY CHEST REASON FOR EXAM: Male, 78 years old. chest pain TECHNIQUE: Single frontal view of the chest. COMPARISON: Chest x-ray March 01, 2024 FINDINGS: Bipolar pacer on the left unchanged. The left hemidiaphragm. The lungs are clear and expanded. There is no demonstrated pleural abnormality. Normal size heart. Normal mediastinum and jerod. Normal visualized pulmonary arteries. Normal visualized aortic arch and descending thoracic aorta. Normal visualized thoracic spine. Normal visualized ribs, clavicles, and shoulders. There is no demonstrated abnormality of the visualized soft tissue structures of the upper abdomen. RAD/Chest 1 View (Portable) IMPRESSION: Stable chest Electronically Signed: German Mccray MD at 17:33 EST ,
[2024-05-26 16:56] LABS: Absolute Lymphocyte Count 1.12 X10^3/uL (0.83-4.51); Absolute Neutrophil Count 4.8 X10^3/uL (2.0-7.7); Basophil# 0.02 X10^3/uL; Basophil% 0.3 % (0-1); Eosinophil# 0.08 X10^3/uL; Eosinophils% 1.2 % (0-5); Hematocrit 43.7 % (40-54); Hemoglobin 14.6 g/dL (13.0-16.5); Lymphocyte # 1.12 X10^3/ul (0.83-4.51); Lymphocyte % 16.9 % (19-41); Mean Corp Hgb Conc 33.4 g/dL (32-36); Mean Corpuscular Hgb 29.5 pg (27.0-32.0); Mean Corpuscular Volume 88.3 fL (80-94); Monocyte# 0.59 X10^3/uL; Monocyte% 8.9 % (0-10); NRBC Flagged by Analyzer 0 % (0-5); Neutrophil % 72.4 % (47-70); Platelet Count 228 K/mm3 (150-450); RBC Distribution Width CV 12.3 % (11.6-14.6); RBC Distribution Width SD 39.5 fl (35.1-43.9); Red Blood Count 4.95 M/mm3 (4.6-6.2); White Blood Count 6.6 K/mm3 (4.4-11.0)
[2024-05-26 17:10] LABS: Anion Gap 7 (5-15); BUN 23 mg/dL (7-18); BUN/Creat Ratio 20.4 RATIO (10-20); Calcium,Total 8.9 mg/dL (8.5-10.1); Chloride 104 mmol/L (98-107); Creatinine, Serum 1.13 mg/dL (0.70-1.30); EST Glomerular Filtration Rate 67 mL/min (>60); Est Glom Filt Rate - Afr Amer 81 mL/min (>60); Estimated Creatinine Clearance 61.23 ml/min; Glucose 241 mg/dL (74-106); Potassium 4.2 mmol/L (3.5-5.1); Sodium Level 138 mmol/L (136-145); Troponin-I HS 9 pg/mL (3.0-78.0)
[2024-05-26 17:55] VITALS: BP 131/94; PULSE 84; RESP 15; TEMP 36.6; O2SAT 96
== END 2024-05-26 17:56 | disposition home or self-care (01) ==
PROVIDERS: Emergency Provider Emergency Medicine; PCP Internal Medicine; Visit Provider Emergency Medicine
DX: S16.1XXA Strain of muscle, fascia and tendon at neck level, initial encounter (principal); I48.91 Unspecified atrial fibrillation; E11.9 Type 2 diabetes mellitus without complications; R07.9 Chest pain, unspecified; E78.5 Hyperlipidemia, unspecified; I25.10 Atherosclerotic heart disease of native coronary artery without angina pectoris; I10 Essential (primary) hypertension; N40.0 Benign prostatic hyperplasia without lower urinary tract symptoms; Z95.5 Presence of coronary angioplasty implant and graft; Z95.0 Presence of cardiac pacemaker; Z79.01 Long term (current) use of anticoagulants; X58.XXXA Exposure to other specified factors, initial encounter
CPT/HCPCS: 71045; 80048; 84484; 85025; 93005; 99284

== ENCOUNTER 2024-10-14 23:00 | Emergency (ER) | payer MEDICARE, SELFPAY ==
[2024-10-14 23:07] VITALS: BP 154/74; PULSE 79; RESP 18; TEMP 36.4; O2SAT 97
[2024-10-14 23:12] VITALS: BMI 28.3
[2024-10-14 23:16] VITALS: PULSE 83; RESP 13; O2SAT 98
[2024-10-14 23:30] VITALS: BP 131/88; PULSE 80; RESP 21; O2SAT 96
--- NOTE | 2024-10-14 23:37 | EKG12_ITS ---
Test Reason : CP Blood Pressure : */* mmHG Vent. Rate : 81 BPM Atrial Rate : 324 BPM P-R Int : * ms QRS Dur : 80 ms QT Int : 360 ms P-R-T Axes : 211 41 -73 degrees QTcB Int : 418 ms Atrial flutter with variable A-V block ST & T wave abnormality, consider anterior ischemia Abnormal ECG Confirmed by LORIE FERRER, GLADYS ([id number]), photograph editor MAIKEL FLORES ([id number]) on 10/17/2024 8:51:11 AM Referred By: PEDRO Confirmed By: GLADYS MELO MD
[2024-10-14] MEDS: 0.9% Normal Saline (500mL Bag) 500 ML 999 ML IV (23:44)
[2024-10-14 23:45] VITALS: BP 133/96
--- NOTE | 2024-10-14 23:59 | RAD_ITS ---
PROCEDURE: CHEST PA AND LATERAL 10/15/2024 REASON FOR EXAM: CHEST PAIN TECHNIQUE: Frontal and lateral views of the chest. COMPARISON: 05/26/2024 FINDINGS: The lungs appear clear. No pleural effusion. Elevated appearance of the left hemidiaphragm is unchanged. program lead pacemaker again noted. Cardiac and mediastinal contours appear within limits. Ectatic thoracic aorta again noted. RAD/Chest PA and Lateral IMPRESSION: No evidence of acute disease. Reading Location: [id number]
[2024-10-15] VITALS (7 sets, daily range): BP systolic 134–161; BP diastolic 73–99; PULSE 74–80; RESP 15–19; TEMP 36.4; O2SAT 94–97
[2024-10-15 00:04] LABS: Anion Gap 9 (5-15); BUN 19 mg/dL (4-19); BUN/Creat Ratio 15.2 RATIO (10-20); Calcium,Total 8.9 mg/dL (7.6-11.0); Carbon Dioxide 25.2 mmol/L (21.0-32.0); Chloride 103 mmol/L (98-108); Creatinine, Serum 1.26 mg/dL (0.70-1.20); EST Glomerular Filtration Rate 58 (>60); Estimated Creatinine Clearance 52.75 ml/min (50-250); Glucose 156 mg/dL (70-99); Magnesium 2.1 mg/dL (1.5-2.2); Potassium 4.2 mmol/L (3.3-5.1); Sodium Level 138 mmol/L (133-145); Troponin T High Sensitivity 16 ng/L (<=22)
[2024-10-15 00:05] LABS: International Normalized Ratio 1.1; Partial Thromboplast Time 28.6 Seconds (24.1-36.2); Prothrombin Time (Protime)PT. 14.5 SECONDS (11.7-14.9)
[2024-10-15 00:22] LABS: Absolute Lymphocyte Count 1.35 X10^3/uL (0.83-4.51); Absolute Neutrophil Count 2.8 X10^3/uL (2.0-7.7); Basophil# 0.02 X10^3/uL; Basophil% 0.4 % (0-1); Eosinophil# 0.12 X10^3/uL; Eosinophils% 2.6 % (0-5); Hemoglobin 15.6 g/dL (13.0-16.5); Lymphocyte # 1.35 X10^3/ul (0.83-4.51); Mean Corp Hgb Conc 33.9 g/dL (32-36); Mean Corpuscular Hgb 29.5 pg (27.0-32.0); Mean Platelet Vol. 8.7 fl (6.2-12.0); Monocyte# 0.29 X10^3/uL; Monocyte% 6.2 % (0-10); NRBC Flagged by Analyzer 0 % (0-5); Neutrophil # 2.81 X10^3/uL (2.7-7.7); Neutrophil % 60.3 % (47-70); Platelet Count 206 K/mm3 (150-450); RBC Distribution Width CV 12.7 % (11.6-14.6); RBC Distribution Width SD 40.4 fl (35.1-43.9); Red Blood Count 5.29 M/mm3 (4.6-6.2); White Blood Count 4.7 K/mm3 (4.4-11.0)
[2024-10-15 02:33] LABS: Troponin T High Sens 2 HR 16 ng/L (<=22)
--- NOTE | 2024-10-15 02:46 | EX.ED.DYSGE1 ---
HPI History of Present Illness Chief Complaint: Chest Pain Informant: patient and spouse/S.O. Narrative Narrative: Patient is a 79-year-old male with past medical history of hypertension hyperlipidemia atrial fibrillation/flutter status post pacemaker placement currently on Eliquis. He states today after driving some [place] around he noticed a vague discomfort in his chest. He states that there was no associated nausea vomiting or diaphoresis. He states that the discomfort did improve spontaneously. However he also noted that he had intermittent short-lived bouts of left eye pain without reported change in vision. He also states that he feels that there is an associated headache with his symptoms and describes decreased sensation. He states that he believes his symptoms overall are mild and he was going to wait until Thursday to follow-up with his family doctor but based on his history of cardiac disease brought him in for evaluation. 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 Atherosclerotic heart disease of [place] coronary artery without angina pectoris Incomplete AV heart block Pre-syncope Dizziness Osteoarthritis Unstable angina BPH (benign prostatic hypertrophy) Osteoarthritis of left hip History of non-insulin dependent diabetes mellitus Home Medications ?Medication ?Instructions ?Recorded ?Last Taken ?Type metformin 500 mg tablet 1,000 mg PO BIDCM 05/02/17 12/13/23 History aspirin 81 mg tablet,delayed 81 mg PO DAILY 07/13/17 12/14/23 History release rivaroxaban 20 mg tablet (Xarelto) 20 mg PO QPM #30 tabs 12/21/23 03/05/24 Rx metoprolol tartrate 25 mg tablet 25 mg PO BID #60 tabs 04/26/24 Unknown Rx Allergy/AdvReac Type Severity Reaction Status Date / Time apixaban (From Eliquis) AdvReac Severe severe Verified 10/14/24 23:07 diarrhea isosorbide AdvReac Severe Swollen Verified 10/14/24 23:07 throat, cannot swallow. amlodipine AdvReac dizziness Verified 10/14/24 23:07 Family History Father CAD (coronary artery disease) Other Paroxysmal atrial flutter Shortness of breath Surgical History History of transurethral resection of prostate History of left heart catheterization (09/10/18) History of prostate surgery H/O umbilical hernia repair History of left hip replacement History of placement of stent in LAD coronary artery (10/05/13) Presence of cardiac pacemaker (12/17/15) Social History household members: spouse Smoking Status: Never smoker alcohol intake: never substance use type: does not use caffeine: No what type of physical activity do you participate in: none seatbelt use: always do you feel safe at home: Yes ROS ROS ED Constitutional Constitutional ED: Denies chills or fever(s) Eyes Eyes: Reports other Details: Positive intermittent left eye pain without vision change ; Denies change in vision ENT ENT ED: Denies sore throat Cardiovascular Cardiovascular: Reports chest pain; Denies palpitations or racing heartbeat Respiratory/Chest Respiratory/Chest: Denies cough or dyspnea Gastrointestinal Gastrointestinal: Denies abdominal pain, diarrhea, nausea or vomiting Musculoskeletal Musculoskeletal: Denies back pain, myalgias or neck pain Integumentary Denies rash Neurologic Neurologic: Reports headache(s) and paresthesias; Denies weakness Hematologic/Lymphatic Hematologic/Lymphatic: Reports easy bleeding and easy bruising EXAM Physical Exam Const Vital Signs: 10/14/24 23:07 10/14/24 23:16 10/14/24 23:30 Temperature 97.5 F L Temperature Source Oral Pulse Rate 79 83 80 Respiratory Rate 18 13 21 H Blood Pressure 154/74 H 131/88 H Blood Pressure Mean 100 101 Pulse Ox 97 98 96 Oxygen Delivery Method Room Air 10/14/24 23:45 10/15/24 00:00 10/15/24 00:15 Temperature Temperature Source Pulse Rate 78 Respiratory Rate 16 Blood Pressure 133/96 H 161/73 H Blood Pressure Mean 108 97 Pulse Ox 97 Oxygen Delivery Method 10/15/24 00:24 10/15/24 00:30 10/15/24 00:45 Temperature Temperature Source Pulse Rate 78 78 79 Respiratory Rate 15 18 19 H Blood Pressure 144/96 H 139/79 H Blood Pressure Mean 112 99 Pulse Ox 97 96 94 Oxygen Delivery Method 10/15/24 01:00 10/15/24 02:58 Temperature 97.6 F L Temperature Source Pulse Rate 80 74 Respiratory Rate 19 H 19 H Blood Pressure 134/99 H 137/91 H Blood Pressure Mean 111 106 Pulse Ox 96 Oxygen Delivery Method Positive well nourished and well developed General Appearance ED: well developed; Negative for pallor HEENT HEENT Narrative: Normocephalic atraumatic Eyes PERRL and EOMs intact bilaterally Eyes Narrative: No paleness to the macula noted General Eye ED: Negative for pale conjunctiva or scleral icterus Neck supple and no JVD Neck Narrative: No nuchal rigidity or meningeal signs present Chest Wall palpation of chest normal Chest Narrative: No bony deformity or subcutaneous emphysema noted No reproducible pain with palpation Resp normal respiratory effort and clear to auscultation bilaterally Resp Narrative: Breath sounds are diminished throughout but overall clear to auscultation without signs of distress Cardio regular rate Rate: other Other Details: Irregularly irregular rhythm consistent with atrial fibrillation/flutter at a regular rate of approximately 80 GI normal to inspection, nondistended, normoactive bowel sounds, non-tender, non-distended and no masses GI Narrative: No voluntary guarding or rigidity or pulsatile mass Auscultation: normoactive bowel sounds Palpation: soft Extremity normal to inspection Extremity Narrative: No asymmetric edema no pitting edema negative Homans' sign bilaterally Neuro oriented x3, CN's II-XII intact bilaterally and No no sensory deficits noted Neuro Narrative: GCS of 15 Cranial nerves II through XII are grossly intact Patient does receive an NIH stroke scale score of 1 for reported paresthesias in the right face/arm No pronator drift no dysmetria no truncal ataxia Sensorium / Orientation: alert Motor Exam: strength 5/5 throughout Psych mental status grossly normal Skin no rashes or lesions noted and no wounds General Skin Exam: Negative for jaundice or pallor MDM MDM MDM Narrative Medical decision making narrative: Patient presented to the ER slightly hypertensive but otherwise with stable vitals. He reported nondescript chest pain and then also reported headache and paresthesia. EKG reveals rate controlled atrial fibrillation/flutter. There is low concern for pulmonary embolus based on his report of Xarelto use. As the patient states he is having intermittent eye pain as well as the paresthesias there is concern that the atrial fibrillation/flutter despite the Xarelto has produced clots which have led to intermittent retinal artery occlusion or a CVA. Secondary to this the patient had a CTA of the head and neck performed as well as cardiac workup. The patient's initial and delta troponin are 16 going against ACS. Chart review reveals that his pacemaker was interrogated roughly 3 weeks ago and showed persistent atrial fibrillation which correlates with his EKG today. CTA of the head and neck revealed no signs of acute bleed or stenosis or LVO. Blood work revealed no clinically significant electrolyte abnormalities such as hyponatremia or hypokalemia or hypomagnesemia as the cause of his paresthesia. The patient was also reporting contradictory symptoms of paresthesia at 1 time stating that it is right face and right arm and the next time stating that his left face and arm. The patient's labs revealed no clinically significant findings his x-ray reveals no signs of acute lung pathology as a cause of his symptoms and the CT CTA goes against spontaneous bleed or ischemic stroke or retinal artery occlusion. The negative workup coupled with the fact the patient's symptoms now only fluctuate but change sides indicate this is most likely not neurologic in as chart review shows that the last pacemaker interrogation displays a similar heart rhythm and rate as he is in this evening this indicates that this cardiac dysrhythmia is more chronic in nature and most likely not the cause of his symptoms. Therefore at this time as patient has had spontaneous improvement of symptoms and an overall negative workup I do not feel there is need for further inpatient testing but that he can follow-up with his family doctor to discuss referral to ophthalmology regarding his intermittent eye pain and/or neurology and cardiology regarding his paresthesias and atrial fibrillation/flutter. However as symptoms have improved and his overall workup is negative this can be done as an outpatient and he is otherwise safe for discharge History & Record Review Discussion w/independent historian: Patient and Significant other Lab Data Attestation: I reviewed the patient's lab results. Labs: Laboratory Results - last 24 hr 10/14/24 10/15/24 23:20 01:30 WBC 4.7 RBC 5.29 Hgb 15.6 Hct 46.0 MCV 87.0 MCH 29.5 MCHC 33.9 RDW Std Deviation 40.4 RDW Coeff of [place]qu[place] 12.7 Plt Count 206 MPV 8.7 Immature Gran % (Auto) 1.500 H Neut % (Auto) 60.3 Lymph % (Auto) 29.0 [place] % (Auto) 6.2 Eos % (Auto) 2.6 Baso % (Auto) 0.4 Absolute Neuts (auto) 2.8 Absolute Lymphs (auto) 1.35 Nucleated RBC % 0 PT 14.5 INR 1.1 APTT 28.6 Sodium 138 Potassium 4.2 Chloride 103 Carbon Dioxide 25.2 Anion Gap 9 BUN 19 Creatinine 1.26 H Estim Creat Clear Calc 52.75 Est GFR (MDRD) Non-Af 58 L BUN/Creatinine Ratio 15.2 Glucose 156 H Calcium 8.9 Magnesium 2.1 Troponin T High Sens 16 Troponin T Hi Sens 2 Hr 16 Radiography Diagnostic Testing: Clinical Impression(s) from Imaging Studies Chest X-Ray 10/14/24 23:59 IMPRESSION: No evidence of acute disease. Reading Location: [facility] Head/Neck CTA 10/15/24 23:37 IMPRESSION: No intracranial hemorrhage, mass effect or CT evidence of large vascular territory acute infarct. Age commensurate chronic and involutional changes again noted. CTA of the head and neck appears within limits without flow significant stenosis, vessel cut off, dissection or aneurysm identified as above. 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, Paresthesia, Hyperlipidemia, Presence of cardiac pacemaker Instructions: ED Chest Pain, Uncertain Cause, ED Paraesthesias Prescriptions: No Action aspirin 81 mg tablet,delayed release (DR/EC) 81 mg PO DAILY metformin 500 MG tablet 1,000 mg PO BIDCM Patient Comments: CONTROLS BLOOD SUGAR Xarelto 20 mg tablet 20 mg PO QPM Qty: 30 11RF Rx Instructions: must administer with evening meal metoprolol tartrate 25 mg tablet 25 mg PO BID Qty: 60 3RF Primary Care Provider: Mele Salas Referrals: Mele Salas MD [Primary Care Provider] - Activity Restrictions/Additional Instructions: Your workup today showed no signs of active heart damage. There was no sign of acute brain bleed or blockage of the blood vessels in your brain indicating a stroke. Please follow-up with your family doctor for repeat evaluation and continue all of your home medications as directed by your doctor. You may need referral to ophthalmology based on your occasional left eye pain and may need to follow-up with neurology and/or cardiology. Return to the ER should you have any further concerns Print Language: [place] Disposition Disposition: Home, Self Care Discharge Date/Time: 10/15/24 02:59
--- NOTE | 2024-10-15 23:37 | CT_ITS ---
PROCEDURE: CTA HEAD AND NECK W/ CONTRAST 10/15/2024 REASON FOR EXAM: PARESTHESIAS TECHNIQUE: CTA imaging of the head and neck from the aortic arch to the skull vertex with out contrast and with intravenous contrast. Multiplanar and multisequence images were obtained. Coronal and sagittal MIP images CONTRAST: 85 cc Isovue 370 IV One or more dose reduction techniques were used (e.g., Automated exposure control, adjustment of the mA and/or kV according to patient size, use of iterative reconstruction technique). RADIATION DOSE SUMMARY: CTDlvol: 45.67 mGy DLP: 1608.64 mGycm COMPARISON: 04/16/2020 FINDINGS: No intracranial hemorrhage, mass effect or CT evidence of large vascular territory acute infarct. The ventricles are unchanged in size and remain midline. Age commensurate chronic and involutional changes again noted. The paranasal sinuses, mastoids and orbits appear within limits. Thoracic aortic arch appears within limits. Standard three-vessel branching. Mildly right sided dominant vertebral arteries are patent throughout. The right and left vertebral arteries contribute to the basilar. Focal area of soft and calcific plaque formation at the proximal right subclavian artery just beyond the right common carotid artery origin with an associated undulation, kink results in approximate 50% luminal narrowing with contrast seen beyond for example coronal 175 series 608. Right and left common and internal carotid arteries are patent without flow significant stenosis, vessel cut off or dissection. Mild bilateral carotid plaque formation without flow significant stenosis. Anterior and middle cerebral arteries are patent. The basilar and posterior cerebral arteries are patent. No flow significant stenosis, vessel cut off or aneurysm identified. Major dural venous sinuses appear within limits as visualized. CT/CTA Head AND Neck W/ Contrast IMPRESSION: No intracranial hemorrhage, mass effect or CT evidence of large vascular territ ory acute infarct. Age commensurate chronic and involutional changes again noted. CTA of the head and neck appears within limits without flow significant stenosi s, vessel cut off, dissection or aneurysm identified as above. Reading Location: [id number]
== END 2024-10-15 02:59 | disposition home or self-care (01) ==
PROVIDERS: Emergency Provider Emergency Medicine; PCP Internal Medicine; Visit Provider Emergency Medicine
DX: R07.9 Chest pain, unspecified (principal); I48.92 Unspecified atrial flutter; I48.19 Other persistent atrial fibrillation; E11.9 Type 2 diabetes mellitus without complications; I25.10 Atherosclerotic heart disease of native coronary artery without angina pectoris; Z79.01 Long term (current) use of anticoagulants; I10 Essential (primary) hypertension; E78.5 Hyperlipidemia, unspecified; Z95.0 Presence of cardiac pacemaker; R20.2 Paresthesia of skin; R29.701 NIHSS score 1; Z95.5 Presence of coronary angioplasty implant and graft; N40.0 Benign prostatic hyperplasia without lower urinary tract symptoms
CPT/HCPCS: 70496; 70498; 71046; 80048; 83735; 84484; 85025; 85610; 85730; 93005; 99283; Q9967; A4216